=== PATIENT | male | born 1955 | race African-American/Black ===

== ENCOUNTER 2016-11-28 13:30 | Inpatient (IN) | payer MEDICAID, OTHER ==
[2016-11-28] VITALS (9 sets, daily range): BP systolic 121–178; BP diastolic 59–111; PULSE 73–113; RESP 16–20; TEMP 97.2–97.9; O2SAT 95–98
[~2016-11-28] VITALS: Ht 170.2 cm; Wt 85.4 kg
--- NOTE | 2016-11-28 14:44 | PD ---
HPI Chief Complaint: Respiratory Symptoms Time Seen by Provider: 14:43 Travel History International Travel<30 days: No Contact w/Intl Traveler<30days: No Traveled to known affect area: No History of Present Illness HPI 61-year-old male came to the emergency room with history of shortness of breath. Patient was tachycardic in triage. He was atrial fibrillation with RVR. Patient has history of atrial fibrillation but not on any medications a blood thinners. He says he has been short of breath for past 1 week. Patient has recently moved from [place] and does not have a primary care here. He was short of breath sitting and talking to me. There has been history of orthopnea. No history of pedal edema or chest pain. No history of fever or chills. Heart rate was in 1 teens to 120s. [facility] Past Medical History Narrative Medical List of his past medical, surgical, social and family history as reviewed from the nursing note. Respiratory: Yes (asthma) Social History Tobacco Use: No Allergies-Medications (Allergen,Severity, Reaction): Coded Allergies: No Known Allergies (Unverified , 11/28/16) Comments No known allergies Reported Meds & Prescriptions Reported Meds & Active Scripts Active Reported Oyster Shell Calcium + D (Calcium Carbonate-Cholecalciferol) 500-400 Mg-Unit Tab 1 Tab PO DAILY Motrin Ib (Ibuprofen) 200 Mg Tablet 800 Mg PO PRN Methotrexate 2.5 Mg Tab 20 Mg PO Q7D Narrative Medication List of her medications a been reviewed from the nursing note. Review of Systems Except as stated in HPI: all other systems reviewed are Neg Physical Exam Narrative GENERAL: Awake, alert, moderate distress SKIN: Focused skin assessment warm/dry. HEAD: Atraumatic. Normocephalic. EYES: Pupils equal and round. No scleral icterus. No injection or drainage. ENT: No nasal bleeding or discharge. Mucous membranes pink and moist. NECK: Trachea midline. No JVD. CARDIOVASCULAR: Irregularly irregular rhythm, RVR. No murmur appreciated. RESPIRATORY: Tachypnea. Clear to auscultation. Breath sounds equal bilaterally. GASTROINTESTINAL: Abdomen soft, non-tender, nondistended. Hepatic and splenic margins not palpable. MUSCULOSKELETAL: No obvious deformities. No clubbing. No cyanosis. No edema. NEUROLOGICAL: Awake and alert. No obvious cranial nerve deficits. Motor grossly within normal limits. Normal speech. PSYCHIATRIC: Appropriate mood and affect; insight and judgment normal. Data Data Last Documented VS Vital Signs Date Time Temp Pulse Resp B/P Pulse Ox O2 Delivery O2 Flow Rate FiO2 11/28/16 16:03 108 20 157/111 97 Room Air 11/28/16 14:47 97.9 Orders Complete Blood Count With Diff (11/28/16 14:57) Basic Metabolic Panel (Bmp) (11/28/16 14:57) B-Type Natriuretic Peptide (11/28/16 14:57) Prothrombin Time / Inr (Pt) (11/28/16 14:57) Magnesium (Mg) (11/28/16 14:57) Troponin I (11/28/16 14:57) Iv Access Insert/Monitor (11/28/16 14:57) Ecg Monitoring (11/28/16 14:57) Oximetry (11/28/16 14:57) Oxygen Administration (11/28/16 14:57) Chest, Single Ap (11/28/16 14:57) Sodium Chloride 0.9% Flush (Ns Flush) (11/28/16 15:00) Vital Signs (Adult) Q15MX4,Q4H (11/28/16 14:57) Herb Doctor / Telemetry OCTAVIO.Q8H (11/28/16 14:57) Cardiac Rhythm OCTAVIO.Q8H (11/28/16 14:57) Notify Dr: Other (11/28/16 14:57) Diltiazem Inj (Cardizem Inj) (11/28/16 15:00) Diltiazem Inj (Cardizem Inj) (11/28/16 15:00) Heparin Infusion OCTAVIO.Q1H (11/28/16 15:25) Heparin Inj (Heparin Inj) (11/28/16 15:30) Heparin Inj (Heparin Inj) (11/28/16 21:30) Heparin Inj (Heparin Inj) (11/28/16 21:30) Heparin-D5w Inj (Heparin-D5w Inj) (11/28/16 15:30) Act Partial Throm Time (Ptt) (11/28/16 15:25) Cbc No Diff, Includes Plts (12/01/16 06:00) Act Partial Throm Time (Ptt) (11/28/16 22:25) Occult Blood (Hemoccult) Stool (11/28/16 15:25) Electrocardiogram (11/28/16 14:48) Admit Order (Ed Use Only) (11/28/16 16:17) Labs Laboratory Tests Test 11/28/16 15:08 White Blood Count 7.9 TH/MM3 Red Blood Count 4.81 MIL/MM3 Hemoglobin 14.0 GM/DL Hematocrit 44.0 % Mean Corpuscular Volume 91.6 FL Mean Corpuscular Hemoglobin 29.1 PG Mean Corpuscular Hemoglobin 31.8 % Concent Red Cell Distribution Width 14.3 % Platelet Count 235 TH/MM3 Mean Platelet Volume 10.3 FL Neutrophils (%) (Auto) 69.6 % Lymphocytes (%) (Auto) 24.0 % Monocytes (%) (Auto) 3.4 % Eosinophils (%) (Auto) 2.3 % Basophils (%) (Auto) 0.7 % Neutrophils # (Auto) 5.5 TH/MM3 Lymphocytes # (Auto) 1.9 TH/MM3 Monocytes # (Auto) 0.3 TH/MM3 Eosinophils # (Auto) 0.2 TH/MM3 Basophils # (Auto) 0.1 TH/MM3 CBC Comment DIFF FINAL Differential Comment Prothrombin Time 10.4 SEC Prothromb Time International 0.9 RATIO Ratio Activated Partial 25.2 SEC Thromboplast Time Sodium Level 140 MEQ/L Potassium Level 4.8 MEQ/L Chloride Level 109 MEQ/L Carbon Dioxide Level 24.4 MEQ/L Anion Gap 7 MEQ/L Blood Urea Nitrogen 14 MG/DL Creatinine 1.09 MG/DL Estimat Glomerular Filtration 84 ML/MIN Rate Random Glucose 75 MG/DL Calcium Level 8.7 MG/DL Magnesium Level 1.9 MG/DL Troponin I 0.08 NG/ML B-Type Natriuretic Peptide 402 PG/ML MDM Medical Decision Making Medical Screen Exam Complete: Yes Emergency Medical Condition: Yes Medical Record Reviewed: Yes Interpretation(s) Twelve-lead EKG was reviewed by me. Atrial fibrillation, RVR, left axis deviation. Heart rate of 120 bpm. Differential Diagnosis Atrial fibrillation, RVR, CHF, ACS Narrative Course 3:34 PM patient was given IV Cardizem bolus 20 mg along with a drip. Patient is not on any blood thinners. I'm starting him on heparin bolus and drip. Awaiting for the blood tests and chest x-ray to be resulted. Patient will eventually require admission. Critical Care Narrative Aggregate critical care time was 45 minutes. Time to perform other separately billable procedures was not included in the critical care time. My time did not include minutes spent treating any other patients simultaneously or on activities that did not directly contribute to the patient's treatment. The services I provided to this patient were to treat and/or prevent clinically significant deterioration that could result in: A. fib with RVR, dyspnea, elevated troponin, Cardizem bolus and drip, heparin bolus and drip I provided critical care services requiring my management, as noted below: Chart data review, documentation time, medication orders and management, vital sign assessments/reviewing monitor data, ordering and reviewing lab tests, ordering and interpreting/reviewing x-rays and diagnostic studies, care of the patient and discussion of the patient with the admitting physicians. Procedures EKG Prior to Arrival: No Diagnosis Primary Impression: Atrial fibrillation with RVR Additional Impressions: Shortness of breath at rest Elevated troponin I level CHF (congestive heart failure) Qualified Code: I50.9 - Congestive heart failure, unspecified congestive heart failure chronicity, unspecified congestive heart failure type Admitting Information Admitting Physician Requests: Admit Scripts Oxycodone 5 Mg Tab5 Mg PO Q6HR PRN (pain) #14 TAB Prov:Lencho Prescott DO 12/01/16 Metoprolol Tartrate (Lopressor)50 Mg Tab75 Mg PO Q12HR #90 TAB Prov:Lencho Prescott DO 12/01/16 Apixaban (Eliquis)5 Mg Tab5 Mg PO BID #60 TAB Prov:Lencho Prescott DO 12/01/16 Folic Acid 20 Mg Cap10 Mg PO DAILY #0 CAP Prov:Lencho Prescott DO 12/01/16 Sofia Kramer MD Nov 28, 2016 14:44
[2016-11-28] MEDS ORDERED: DILTIAZEM HCL 25 MG/5 ML VIAL IVP ONE (15:00)
[2016-11-28] MEDS ORDERED: SODIUM CHLORIDE 0.9% FLUSH 10 ML FLUSH IVF PRN (15:00)
[2016-11-28] MEDS ORDERED: METH2.5T PO (15:08)
[2016-11-28] MEDS ORDERED: OS-CTAB3 PO (15:08)
[2016-11-28] MEDS ORDERED: AMLO5TAB2 PO (15:08)
[2016-11-28] MEDS ORDERED: FOLI20CA PO (15:08)
[2016-11-28] MEDS ORDERED: OYST500T53 PO (15:08)
[2016-11-28] MEDS ORDERED: IBUP-1129 PO (15:08)
[2016-11-28] MEDS ORDERED: LOSA25TA PO (15:08)
[2016-11-28] MEDS: DILTIAZEM INJ 125 MG in SODIUM CHLORIDE 0.9% INJ 100 ML IV SCH (15:30)
[2016-11-28] MEDS ORDERED: HEPARIN SODIUM - IV 10,000 UNITS/10 ML VIAL IV ONE (15:30)
--- NOTE | 2016-11-28 15:34 | RADRPT ---
EXAM DATE/TIME: 11/28/2016 15:01 [facility] COMPARISON: No previous studies available for comparison. INDICATIONS : Shortness of breath. MEDICAL HISTORY : Hypertension. Asthma. SURGICAL HISTORY : None. ENCOUNTER: Initial ACUITY: 1 day PAIN SCORE: 0/10 LOCATION: Bilateral chest FINDINGS: A single view of the chest demonstrates the lungs to be symmetrically aerated without evidence of mas s, infiltrate or effusion. The cardiomediastinal contours are unremarkable. Osseous structures are intact. CONCLUSION: No acute disease. Ge De Leon MD on November 28, 2016 at 15:32 Board Certified Radiologist. This report was verified electronically.
[2016-11-28 15:44] LABS: AUTOMATED NEUTROPHIL # 5.5 TH/MM3 (1.8-7.7); BASOPHIL # 0.1 TH/MM3 (0-0.2); BASOPHIL % 0.7 % (0.0-2.0); EOSINOPHIL # 0.2 TH/MM3 (0-0.4); EOSINOPHIL % 2.3 % (0.0-4.0); HEMO FLAGS DIFF FINAL; LYMPHOCYTE # 1.9 TH/MM3 (1.0-4.8); MEAN CELL VOLUME 91.6 FL (80.0-100.0); MEAN CORPUSCULAR HEMOGLOBIN 29.1 PG (27.0-34.0); MEAN CORPUSCULAR HGB CONC 31.8 % (32.0-36.0); MONO % 3.4 % (0.0-8.0); NEUT % 69.6 % (16.0-70.0); PLATELET COUNT 235 TH/MM3 (150-450); RED BLOOD COUNT 4.81 MIL/MM3 (4.50-5.90); RED CELL DISTRIBUTION WIDTH 14.3 % (11.6-17.2); WHITE BLOOD COUNT 7.9 TH/MM3 (4.0-11.0)
[2016-11-28] MEDS: HEPARIN-D5W INJ 250 ML IV SCH (15:52)
[2016-11-28 15:54] LABS: INTERNATIONAL NORMALIZED RATIO 0.9 RATIO; PROTHROMBIN TIME - PATIENT 10.4 SEC (9.8-11.6)
[2016-11-28 16:20] LABS: BICARBONATE 24.4 MEQ/L (21.0-32.0); MAGNESIUM 1.9 MG/DL (1.5-2.5)
[2016-11-28 16:25] LABS: POTASSIUM 4.8 MEQ/L (3.5-5.1)
[2016-11-28] MEDS ORDERED: PILL SPLITTER OTHER PRN (16:45)
--- NOTE | 2016-11-28 17:03 | HHI.HP ---
HPI Service [facility] Primary Care Physician No Primary Care Physician Admission Diagnosis A. fib with RVR, shortness of breath Diagnoses: Chief Complaint: Shortness of breath Travel History International Travel<30 Days: No Contact w/Intl Traveler <30 Da: No Traveled to Known Affected Are: No History of Present Illness 61-year-old male with past medical history of HTN, RA, spinal stenosis, DJD, OA who presented for shortness of breath. The patient states that he's been having shortness breath and dyspnea with exertion for the past week. He states that is been getting worse over the past 2 days. He complains of palpitations and feeling like his heart is racing. He denies any chest pain. He denies ever experiencing any symptoms like this before. He states someone mentioned about 30 years ago that he might have an irregular heartbeat. He denies ever being told he has atrial fibrillation. 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 He denies any recent illness, but has had a cough productive with white sputum for the last 3 days. He denies any fever, chills, nausea, vomiting, diarrhea. Review of Systems Except as stated in HPI: all other systems reviewed are Neg Ambulates using a cane Past Family Social History Past Medical History Hypertension Rheumatoid arthritis/spinal stenosis/degenerative joint disease/osteoarthritis Past Surgical History Right knee surgery 2 Left knee surgery 2 Spinal surgery 2 Reported Medications Oyster Shell Calcium + D (Calcium Carbonate-Cholecalciferol) 500-400 Mg-Unit Tab 1 Tab PO DAILY Os-Wenceslao Calcium + D3 (Calcium Carbonate-Cholecalciferol) 500-200 Mg-Unit Tab 1 Tab PO DAILY Folic Acid 20 Mg Cap 20 Mg PO DAILY Motrin Ib (Ibuprofen) 200 Mg Tablet 800 Mg PO PRN Amlodipine (Amlodipine Besylate) 5 Mg Tab 5 Mg PO DAILY Losartan (Losartan Potassium) 25 Mg Tab 12.5 Mg PO DAILY Methotrexate 2.5 Mg Tab 20 Mg PO Q7D Allergies: Coded Allergies: No Known Allergies (Unverified , 11/28/16) Active Ordered Medications Current Medications Medications (Trade) Dose Ordered Sig/[place] Route Start Time Stop Time Status Last Admin Sodium Chloride 2 ml 2 ml UNSCH PRN IVF 11/28/16 15:00 (Cardizem Inj/NS Inj) 125 ml @ 0 mls/hr TITRATE IV 11/28/16 15:00 11/28/16 15:30 (Heparin Inj) 5,000 units UNSCH PRN IV 11/28/16 21:30 Heparin Sodium (Porcine) 2500 units 2,500 units UNSCH PRN IV 11/28/16 21:30 (Heparin-D5W Inj) 250 ml @ 0 mls/hr TITRATE IV 11/28/16 15:30 11/28/16 15:52 (Cozaar) 12.5 mg DAILY PO 11/29/16 09:00 Non-Formulary Medication 20 mg DAILY PO 11/29/16 09:00 UNV (Pill Splitter) 1 ea UNSCH PRN OTHER 11/28/16 16:45 Family History Mother of a heart attack Social History Smokes about 3 cigarettes daily Has a couple of beers twice a week Denies any substance use Physical Exam Vital Signs Vital Signs Date Time Temp Pulse Resp B/P Pulse Ox O2 Delivery O2 Flow Rate FiO2 11/28/16 16:03 108 20 157/111 97 Room Air 11/28/16 15:18 98 Room Air 11/28/16 14:47 16 96 11/28/16 14:47 97.9 113 16 178/109 96 Room Air 11/28/16 13:31 97.4 90 18 152/106 97 Physical Exam GENERAL: Well-developed well-nourished. In no acute distress. SKIN: Warm and dry. No lesions noted. HEENT: Normocephalic. Pupils equal and round. Mucous membranes pink and moist. CARDIOVASCULAR: Tachycardic irregular rate and rhythm. No murmur appreciated. RESPIRATORY: No accessory muscle use. Clear to auscultation. Breath sounds equal bilaterally. GASTROINTESTINAL: Abdomen soft, non-tender, nondistended. Bowel sounds x4. MUSCULOSKELETAL: No obvious deformities. No clubbing or cyanosis. Trace pitting lower extremity edema. NEUROLOGICAL: Awake and alert. No focal neurological deficits. Moves upper and lower extremities spontaneously. Normal speech. Strength 5/5. PSYCHIATRIC: Appropriate mood and affect; insight and judgment normal. Laboratory Laboratory Tests Test 11/28/16 15:08 White Blood Count 7.9 Red Blood Count 4.81 Hemoglobin 14.0 Hematocrit 44.0 Mean Corpuscular Volume 91.6 Mean Corpuscular Hemoglobin 29.1 Mean Corpuscular Hemoglobin 31.8 Concent Red Cell Distribution Width 14.3 Platelet Count 235 Mean Platelet Volume 10.3 Neutrophils (%) (Auto) 69.6 Lymphocytes (%) (Auto) 24.0 Monocytes (%) (Auto) 3.4 Eosinophils (%) (Auto) 2.3 Basophils (%) (Auto) 0.7 Neutrophils # (Auto) 5.5 Lymphocytes # (Auto) 1.9 Monocytes # (Auto) 0.3 Eosinophils # (Auto) 0.2 Basophils # (Auto) 0.1 CBC Comment DIFF FINAL Differential Comment Prothrombin Time 10.4 Prothromb Time International 0.9 Ratio Sodium Level 140 Potassium Level 4.8 Chloride Level 109 Carbon Dioxide Level 24.4 Anion Gap 7 Blood Urea Nitrogen 14 Creatinine 1.09 Estimat Glomerular Filtration 84 Rate Random Glucose 75 Calcium Level 8.7 Magnesium Level 1.9 Troponin I 0.08 B-Type Natriuretic Peptide 402 Result Diagram: 11/28/16 1508 11/28/16 1508 Imaging Last Impressions Chest X-Ray 11/28/16 1457 Signed Impressions: Service Date/Time: Monday, November 28, 2016 15:01 - CONCLUSION: No acute disease. Ge De Leon MD Assessment and Plan Assessment and Plan 61-year-old male with past medical history of HTN, RA, spinal stenosis, DJD, OA who presented for shortness of breath New-onset atrial fibrillation with rapid ventricular response: Chadsvasc 1 Reviewed: EKG with A. fib with RVR, rate 120, no definite ischemic changes. Troponin 0.08. BNP 402. Chest x-ray clear. Potassium magnesium within normal limits. -Cardizem and heparin drips started in the ED, continue -Trend troponins and check TSH -Start metoprolol and aspirin -Check echocardiogram -Consult cardiology Hypertension: Chronic, currently accelerated. Hold home amlodipine on Cardizem. Continue losartan. Started metoprolol. Discussed Condition With Patient with SO at bedside, Bhaskar Tran Nov 28, 2016 17:03
--- NOTE | 2016-11-28 18:07 | EKG ---
Date Performed: 11/28/2016 Time Performed: 14:48:48 PTAGE: 61 years EKG: Multifocal atrial tachycardia Nonspecific T wave changes ABNORMAL ECG NO PREVIOUS TRACING DOCTOR: Dimitrios Burns Interpretating Date/Time 11/28/2016 18:07:16
[2016-11-28 18:13] LABS: APTT (PATIENT) 25.2 SEC (24.3-30.1)
--- NOTE | 2016-11-28 18:33 | MB ---
cc: HALEY BUSTAMANTE MD DATE OF CONSULTATION 11/28/2016 REASON FOR CONSULTATION Atrial fibrillation with rapid ventricular rate. HISTORY OF PRESENT ILLNESS Mr. Castillo is a 61-year-old man who does have a history of irregular heartbeat. He presented to the emergency room with shortness of breath over the last 3 days and fatigue over the last week. The patient was noted to be in atrial fibrillation with rapid ventricular rate in the emergency room. Cardiology was subsequently consulted. PAST MEDICAL HISTORY Significant for: 1. Dysrhythmia. 2. Hypertension. 3. Asthma. ALLERGIES NO KNOWN DRUG ALLERGIES. MEDICATIONS Outpatient medications include: 1. Motrin. 2. Amlodipine 5 milligrams daily. 3. Losartan 12.5 milligrams daily. 4. Methotrexate 2.5 mg a day. REVIEW OF SYSTEMS Except as mentioned in the HPI all 12 systems are negative. FAMILY HISTORY Positive for mother who of an myocardial infarction. SOCIAL HISTORY The patient does smoke three cigarettes a day and has occasional alcohol use. PHYSICAL EXAMINATION VITAL SIGNS: 102, 20, 134/75. GENERAL: He is a well appearing man who is in no apparent distress. NECK: Free from JVD. LUNGS: Decreased but clear to auscultation. CARDIOVASCULAR: On examination he has an irregularly irregular rhythm. No rubs or gallops are appreciated. ABDOMEN: Soft. EXTREMITIES: Are free from edema. IMAGING Chest x-ray is negative for any acute process. LABORATORY FINDINGS Significant for white count of 7.9. Creatinine of 1.09. Troponin was 0.08. And BNP is 402. EKG does show atrial fibrillation with rapid ventricular rate. IMPRESSION 1. Atrial fibrillation - the patient does have a history of an irregular heartbeat. It is not clear if he does have a history of atrial fibrillation. In case I do agree with the Cardize for rate control and BP control, particularly as he does have a history of asthma as well. 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 2. Hypertension - I do agree with discontinuing the amlodipine and losartan. 3. Indeterminate troponin - this is likely secondary to the atrial fibrillation with rapid ventricular rate. Melissa Wheat/KK /6:13 PM /6:25 PM
[2016-11-28] MEDS ORDERED: METOPROLOL TARTRATE 25 MG TAB PO SCH (21:00)
[2016-11-28] MEDS ORDERED: DILTIAZEM-CD 120 MG CAP ER PO SCH (21:00)
[2016-11-28] MEDS ORDERED: HEPARIN SODIUM - IV 10,000 UNITS/10 ML VIAL IV PRN ×2 (21:30)
[2016-11-29] VITALS (11 sets, daily range): BP systolic 104–153; BP diastolic 66–97; PULSE 48–108; RESP 16–18; TEMP 97.4–98.4; O2SAT 93–98
[2016-11-29 00:09] LABS: APTT (PATIENT) 65.8 SEC (24.3-30.1)
[2016-11-29] MEDS ORDERED: FUROSEMIDE 20 MG/2 ML VIAL IV PUSH ONE (04:15)
[2016-11-29] MEDS: HEPARIN-D5W INJ 250 ML IV SCH ×2 (05:16→21:46)
--- NOTE | 2016-11-29 05:29 | RADRPT ---
EXAM DATE/TIME: 11/29/2016 04:25 [facility] COMPARISON: CHEST SINGLE AP, November 28, 2016, 15:01. INDICATIONS : Shortness of breath. MEDICAL HISTORY : Hypertension. Asthma SURGICAL HISTORY : None. ENCOUNTER: Subsequent ACUITY: 2 days PAIN SCORE: 0/10 LOCATION: Bilateral chest FINDINGS: There is slight cardiomegaly and perivascular pulmonary edema. Focal consolidation is not seen. CONCLUSION: Slight CHF. Catrachita De La Cruz MD on November 29, 2016 at 5:27 Board Certified Radiologist. This report was verified electronically.
--- NOTE | 2016-11-29 07:28 | PD.CARD.PN ---
Subjective Subjective Remarks Pt with SHOB overnight requiring lasix Objective Medications Current Medications Medications (Trade) Dose Ordered Sig/[place] Route Start Time Stop Time Status Last Admin Sodium Chloride 2 ml 2 ml UNSCH PRN IVF 11/28/16 15:00 (Cardizem Inj/NS Inj) 125 ml @ 0 mls/hr TITRATE IV 11/28/16 15:00 11/28/16 15:30 (Heparin Inj) 5,000 units UNSCH PRN IV 11/28/16 21:30 Heparin Sodium (Porcine) 2500 units 2,500 units UNSCH PRN IV 11/28/16 21:30 (Heparin-D5W Inj) 250 ml @ 0 mls/hr TITRATE IV 11/28/16 15:30 11/29/16 05:16 Non-Formulary Medication 20 mg DAILY PO 11/29/16 09:00 UNV (Pill Splitter) 1 ea UNSCH PRN OTHER 11/28/16 16:45 (Aspirin Chew) 81 mg DAILY PO 11/29/16 09:00 (Cardizem Cd) 120 mg Q12HR PO 11/28/16 21:00 11/28/16 21:21 (Pneumovax-23 Inj) 25 mcg ONCE ONCE IM 11/29/16 10:00 11/29/16 10:01 Vital Signs / I&O Vital Signs Date Time Temp Pulse Resp B/P Pulse Ox O2 Delivery O2 Flow Rate FiO2 11/29/16 05:30 97 Room Air 11/29/16 03:35 98 Nasal Cannula 2.00 11/29/16 03:25 96 Room Air 11/29/16 00:00 97.4 93 16 130/79 97 11/29/16 00:00 Room Air 11/28/16 21:45 97 Room Air 11/28/16 20:24 92 11/28/16 20:00 Room Air 11/28/16 20:00 97.5 87 16 121/59 96 11/28/16 18:32 Room Air 11/28/16 18:24 97.2 73 18 156/89 95 11/28/16 17:36 102 20 144/75 98 Room Air 11/28/16 17:21 95 21 11/28/16 17:01 104 20 150/88 98 Room Air 11/28/16 16:03 108 20 157/111 97 Room Air 11/28/16 15:18 98 Room Air 11/28/16 14:47 16 96 11/28/16 14:47 97.9 113 16 178/109 96 Room Air 11/28/16 13:31 97.4 90 18 152/106 97 I/O 11/28/16 11/28/16 11/28/16 11/29/16 11/29/16 11/29/16 07:00 15:00 23:00 07:00 15:00 23:00 Intake Total 900 ml Output Total 400 ml Balance 500 ml Intake Oral 900 ml Output Urine Total 400 ml # Bowel Movements 1 Physical Exam GENERAL: Well developed, well nourished. No acute distress. HEENT: Jugular venous pressure is normal. CHEST: Lungs clear to auscultation bilaterally. Unlabored respiratory effort. CARDIAC: irregular rate and rhythm without S3, S4, or murmur. ABDOMEN: Soft, nontender, no hepatosplenomegaly. Bowel sounds present. EXTREMITIES: No clubbing, cyanosis, or edema. Laboratory Laboratory Tests Test 11/28/16 11/28/16 15:08 23:23 White Blood Count 7.9 TH/MM3 Red Blood Count 4.81 MIL/MM3 Hemoglobin 14.0 GM/DL Hematocrit 44.0 % Mean Corpuscular Volume 91.6 FL Mean Corpuscular Hemoglobin 29.1 PG Mean Corpuscular Hemoglobin 31.8 % Concent Red Cell Distribution Width 14.3 % Platelet Count 235 TH/MM3 Mean Platelet Volume 10.3 FL Neutrophils (%) (Auto) 69.6 % Lymphocytes (%) (Auto) 24.0 % Monocytes (%) (Auto) 3.4 % Eosinophils (%) (Auto) 2.3 % Basophils (%) (Auto) 0.7 % Neutrophils # (Auto) 5.5 TH/MM3 Lymphocytes # (Auto) 1.9 TH/MM3 Monocytes # (Auto) 0.3 TH/MM3 Eosinophils # (Auto) 0.2 TH/MM3 Basophils # (Auto) 0.1 TH/MM3 CBC Comment DIFF FINAL Differential Comment Prothrombin Time 10.4 SEC Prothromb Time International 0.9 RATIO Ratio Activated Partial 25.2 SEC 65.8 SEC Thromboplast Time Sodium Level 140 MEQ/L Potassium Level 4.8 MEQ/L Chloride Level 109 MEQ/L Carbon Dioxide Level 24.4 MEQ/L Anion Gap 7 MEQ/L Blood Urea Nitrogen 14 MG/DL Creatinine 1.09 MG/DL Estimat Glomerular Filtration 84 ML/MIN Rate Random Glucose 75 MG/DL Calcium Level 8.7 MG/DL Magnesium Level 1.9 MG/DL Troponin I 0.08 NG/ML 0.07 NG/ML B-Type Natriuretic Peptide 402 PG/ML Thyroid Stimulating Hormone 1.630 uIU/ML 3rd Gen Imaging Last 72 hours Impressions Chest X-Ray 11/29/16 0000 Signed Impressions: Service Date/Time: Tuesday, November 29, 2016 04:25 - CONCLUSION: Slight CHF. K. Ayden De La Cruz MD Chest X-Ray 11/28/16 1457 Signed Impressions: Service Date/Time: Monday, November 28, 2016 15:01 - CONCLUSION: No acute disease. Ge De Leon MD Assessment and Plan Assessment and Plan 1. Atrial fibrillation - the patient does have a history of an irregular heartbeat. It is not clear if he does have a history of atrial fibrillation. In case I do agree with the Cardizem for rate control and BP control, particularly as he does have a history of asthma as well. 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 11/29- still with some RVR, now also with CHF -change back to POBB -CHADS VASC =2 so should have OP anticoagulation, consult case management to see if eliquis or pradaxa are on his formulary 2. Hypertension - 3. Indeterminate troponin - this is likely secondary to the atrial fibrillation 4. CHF- ECHO pending, -add lasix, fluid and sodium restrictions with rapid ventricular rate. Caitlin Shaver MD Nov 29, 2016 07:28
[2016-11-29] MEDS ORDERED: LOSARTAN 25 MG TAB PO SCH (09:00)
[2016-11-29] MEDS ORDERED: FOLIC ACID 20 MG PO SCH (09:00)
--- NOTE | 2016-11-29 09:03 | HHI.PR ---
Subjective Remarks The patient was ambulating without difficulty. He said that he had some edema in his lower extremities yesterday. He said that he had some shortness of breath overnight that is improved. He has been having bowel movements. No acute complaints at this time. He was about to have an echo performed. Objective Vitals Vital Signs Date Time Temp Pulse Resp B/P Pulse Ox O2 Delivery O2 Flow Rate FiO2 11/29/16 08:00 Room Air 11/29/16 05:30 97 Room Air 11/29/16 04:00 97.6 78 18 122/73 94 11/29/16 03:35 98 Nasal Cannula 2.00 11/29/16 03:25 96 Room Air 11/29/16 00:00 97.4 93 16 130/79 97 11/29/16 00:00 Room Air 11/28/16 21:45 97 Room Air 11/28/16 20:24 92 11/28/16 20:00 Room Air 11/28/16 20:00 97.5 87 16 121/59 96 11/28/16 18:32 Room Air 11/28/16 18:24 97.2 73 18 156/89 95 11/28/16 17:36 102 20 144/75 98 Room Air 11/28/16 17:21 95 21 11/28/16 17:01 104 20 150/88 98 Room Air 11/28/16 16:03 108 20 157/111 97 Room Air 11/28/16 15:18 98 Room Air 11/28/16 14:47 16 96 11/28/16 14:47 97.9 113 16 178/109 96 Room Air 11/28/16 13:31 97.4 90 18 152/106 97 I/O 11/28/16 11/28/16 11/28/16 11/29/16 11/29/16 11/29/16 07:00 15:00 23:00 07:00 15:00 23:00 Intake Total 900 ml 869 ml Output Total 400 ml 1000 ml Balance 500 ml -131 ml Intake Oral 900 ml 480 ml IV Total 289 ml Albumin 100 ml Output Urine Total 400 ml 1000 ml # Bowel Movements 1 0 Result Diagram: 11/28/16 1508 11/28/16 1508 Imaging Last Impressions Chest X-Ray 11/29/16 0000 Signed Impressions: Service Date/Time: Tuesday, November 29, 2016 04:25 - CONCLUSION: Slight CHF. Catrachita De La Cruz MD Objective Remarks GENERAL: Well-developed well-nourished. In no acute distress. SKIN: Warm and dry. No lesions noted. HEENT: Normocephalic. Pupils equal and round. Mucous membranes pink and moist. CARDIOVASCULAR: Irregularly irregular. No murmur appreciated. RESPIRATORY: No accessory muscle use. Clear to auscultation. Breath sounds equal bilaterally. GASTROINTESTINAL: Abdomen soft, non-tender, nondistended. Bowel sounds x4. MUSCULOSKELETAL: No obvious deformities. No clubbing or cyanosis. Trace pitting lower extremity edema. NEUROLOGICAL: Awake and alert. No focal neurological deficits. Moves upper and lower extremities spontaneously. Normal speech. Strength 5/5. PSYCHIATRIC: Appropriate mood and affect; insight and judgment normal. Medications and IVs Current Medications Medications (Trade) Dose Ordered Sig/[place] Route Start Time Stop Time Status Last Admin Sodium Chloride 2 ml 2 ml UNSCH PRN IVF 11/28/16 15:00 (Cardizem Inj/NS Inj) 125 ml @ 0 mls/hr TITRATE IV 11/28/16 15:00 11/28/16 15:30 (Heparin Inj) 5,000 units UNSCH PRN IV 11/28/16 21:30 Heparin Sodium (Porcine) 2500 units 2,500 units UNSCH PRN IV 11/28/16 21:30 (Heparin-D5W Inj) 250 ml @ 0 mls/hr TITRATE IV 11/28/16 15:30 11/29/16 05:16 Non-Formulary Medication 20 mg DAILY PO 11/29/16 09:00 UNV (Pill Splitter) 1 ea UNSCH PRN OTHER 11/28/16 16:45 (Aspirin Chew) 81 mg DAILY PO 11/29/16 09:00 (Pneumovax-23 Inj) 25 mcg ONCE ONCE IM 11/29/16 10:00 11/29/16 10:01 (Lopressor) 50 mg Q8HR PO 11/29/16 14:00 (Lasix) 20 mg BID@09,18 PO 11/29/16 09:00 (KCl) 10 meq Q12HR PO 11/29/16 09:00 A/P Assessment and Plan 61-year-old male with past medical history of HTN, RA, spinal stenosis, DJD, OA who presented for shortness of breath New-onset atrial fibrillation with rapid ventricular response Chadsvasc 2. EKG with A. fib with RVR, rate 120, no definite ischemic changes. Troponin peaked at 0.08. TSH WNL. Cardiology consult appreciated. - continue Cardizem and heparin drips. PO Lopressor increased by cardiology. - continue ASA. Will likely be started on full anticoagulation per cardiology. - Check echocardiogram. Acute CHF Unsure if systolic or diastolic. Likely s/t A fib. The patient developed shortness of breath and repeat chest x-ray showed evidence of CHF. BNP is elevated over 400. He received Lasix and his symptoms improved. - Echo pending. - Continue cardiac regimen including Lasix. - Check hemoglobin A1c and lipid profile. Hypertension Chronic, currently well controlled. - Hold home amlodipine. - Continue losartan. - Started metoprolol. PPx: Heparin gtt Discharge Planning Awaiting clinical improvement Lencho Prescott DO Nov 29, 2016 09:03
[2016-11-29] MEDS: FUROSEMIDE 20 MG TAB PO SCH ×2 (09:25→18:05)
[2016-11-29] MEDS: ASPIRIN 81 MG CHEW TAB PO SCH (09:25)
[2016-11-29] MEDS: POTASSIUM CHLORIDE 10 MEQ CONTROLLED RELEASE TAB PO SCH ×2 (09:26→20:22)
[2016-11-29 09:45] LABS: HEMATOCRIT 42.5 % (39.0-51.0); MEAN CELL VOLUME 89.7 FL (80.0-100.0); MEAN CORPUSCULAR HEMOGLOBIN 28.5 PG (27.0-34.0); MEAN CORPUSCULAR HGB CONC 31.8 % (32.0-36.0); PLATELET COUNT 224 TH/MM3 (150-450); RED BLOOD COUNT 4.74 MIL/MM3 (4.50-5.90); RED CELL DISTRIBUTION WIDTH 14.5 % (11.6-17.2); REVIEW FLAG FINAL
[2016-11-29] MEDS ORDERED: FOLIC ACID 1 MG TAB PO SCH (09:45)
[2016-11-29 09:56] LABS: APTT (PATIENT) 70.3 SEC (24.3-30.1)
[2016-11-29] MEDS ORDERED: PNEUMOCOCCAL POLYVALENT INJ 25 MCG/0.5 ML SYR IM ONE (10:00)
[2016-11-29 10:22] LABS: BICARBONATE 22.5 MEQ/L (21.0-32.0); POTASSIUM 3.2 MEQ/L (3.5-5.1)
[2016-11-29 13:07] LABS: HDL CHOLESTEROL 51.7 MG/DL (40.0-60.0); LDL CHOLESTEROL 61 MG/DL (0-99)
[2016-11-29] MEDS: METOPROLOL TARTRATE 50 MG TAB PO SCH ×2 (13:09→20:22)
[2016-11-29] MEDS: FOLIC ACID 1 MG TAB PO SCH (13:10)
--- NOTE | 2016-11-29 13:23 | ECHRPT ---
Indication: Hypertensive Heart Disease CONCLUSIONS Normal left ventricular size. Wall thickness is normal. The left ventricular systolic function is borderline with an estimated ejection fraction of 50%. The left atrial size is upper limits of normal. Moderate mitral valve regurgitation. Mild mitral annular calcification. Aortic valve sclerosis is present. Mild aortic valve regurgitation. There is trace tricuspid valve regurgitation. Mild to moderate pulmonary hypertension. BP: 157 / 111 HR: 108 Rhythm: Atrial fibrillation MEASUREMENTS (Male / Female) Normal Values Technical Quality:Good 2D ECHO LV Diastolic Diameter PLAX 4.4 cm 4.2 - 5.9 / 3.9 - 5.3 cm LV Systolic Diameter PLAX 3.4 cm IVS Diastolic Thickness 0.9 cm 0.6 - 1.0 / 0.6 - 0.9 cm LVPW Diastolic Thickness 0.8 cm 0.6 - 1.0 / 0.6 - 0.9 cm LV Relative Wall Thickness 0.4 RV Internal Dim ED PLAX 2.3 cm LA Systolic Diameter LX 3.6 cm 3.0 - 4.0 / 2.7 - 3.8 cm M-MODE Aortic Root Diameter MM 3.2 cm AV Cusp Separation MM 2.2 cm DOPPLER AV Peak Velocity 170.0 cm/s AV Peak Gradient 11.6 mmHg LVOT Peak Velocity 93.8 cm/s LVOT Peak Gradient 3.5 mmHg MR Peak Velocity 489.5 cm/s MR Peak Gradient 95.8 mmHg Mitral E Point Velocity 69.6 cm/s TR Peak Velocity 343.0 cm/s TR Peak Gradient 47.1 mmHg FINDINGS LEFT VENTRICLE Normal left ventricular size. Wall thickness is normal. The left ventricular systolic function is borderline with an estimated ejection fraction of 50%. Left ventricular diastolic function parameters are normal. RIGHT VENTRICLE Normal right ventricular size and systolic function. LEFT ATRIUM The left atrial size is upper limits of normal. RIGHT ATRIUM The right atrial size is normal. ATRIAL SEPTUM Normal atrial septal thickness without atrial level shunting by limited color doppler interrogation. AORTA The aortic root and proximal ascending aorta are normal in size on limited imaging. MITRAL VALVE Moderate mitral valve regurgitation. Mild mitral annular calcification. AORTIC VALVE Aortic valve sclerosis is present. Mild aortic valve regurgitation. TRICUSPID VALVE There is trace tricuspid valve regurgitation. Mild to moderate pulmonary hypertension. PULMONARY VALVE The pulmonary valve is not well visualized. VESSELS The inferior vena cava is normal in size. PERICARDIUM No pericardial effusion. Martinez Chatterjee MD, FACC (Electronically Signed) Final Date:29 November 2016 13:22 Amended: 29 November 2016 13:29
[2016-11-29] MEDS: DILTIAZEM INJ 125 MG in SODIUM CHLORIDE 0.9% INJ 100 ML IV SCH (13:52)
[2016-11-29] MEDS ORDERED: POTASSIUM CHLORIDE 25 MEQ EFFERVESCENT TAB PO ONE (14:30)
[2016-11-29 15:55] LABS: HEMOGLOBIN A1a 0.9 %; HEMOGLOBIN A1b 1.7 %; HEMOGLOBIN Ao 84.6 %
[2016-11-30] VITALS (9 sets, daily range): BP systolic 104–142; BP diastolic 70–90; PULSE 43–96; RESP 18–20; TEMP 97.4–97.7; O2SAT 92–96
[2016-11-30] MEDS: METOPROLOL TARTRATE 50 MG TAB PO SCH ×2 (05:54→20:25)
[2016-11-30] MEDS: FUROSEMIDE 20 MG TAB PO SCH (08:07)
[2016-11-30] MEDS: POTASSIUM CHLORIDE 10 MEQ CONTROLLED RELEASE TAB PO SCH (08:07)
[2016-11-30] MEDS: FOLIC ACID 1 MG TAB PO SCH (08:08)
[2016-11-30] MEDS: ASPIRIN 81 MG CHEW TAB PO SCH (08:08)
--- NOTE | 2016-11-30 08:11 | PD.CARD.PN ---
Subjective Subjective Remarks Pt without complaints Objective Medications Current Medications Medications (Trade) Dose Ordered Sig/[place] Route Start Time Stop Time Status Last Admin Sodium Chloride 2 ml 2 ml UNSCH PRN IVF 11/28/16 15:00 (Cardizem Inj/NS Inj) 125 ml @ 0 mls/hr TITRATE IV 11/28/16 15:00 11/29/16 13:52 (Heparin Inj) 5,000 units UNSCH PRN IV 11/28/16 21:30 Heparin Sodium (Porcine) 2500 units 2,500 units UNSCH PRN IV 11/28/16 21:30 (Heparin-D5W Inj) 250 ml @ 0 mls/hr TITRATE IV 11/28/16 15:30 11/29/16 21:46 (Pill Splitter) 1 ea UNSCH PRN OTHER 11/28/16 16:45 (Aspirin Chew) 81 mg DAILY PO 11/29/16 09:00 11/29/16 09:25 (Lopressor) 50 mg Q8HR PO 11/29/16 14:00 11/30/16 05:54 (Lasix) 20 mg BID@09,18 PO 11/29/16 09:00 11/29/16 18:05 (KCl) 10 meq Q12HR PO 11/29/16 09:00 11/29/16 20:22 (Folate) 10 mg DAILY PO 11/29/16 12:00 11/29/16 13:10 (Roxicodone) 5 mg Q4H PRN PO 11/29/16 14:30 11/30/16 05:54 Vital Signs / I&O Vital Signs Date Time Temp Pulse Resp B/P Pulse Ox O2 Delivery O2 Flow Rate FiO2 11/30/16 04:00 97.7 43 18 109/75 92 11/30/16 04:00 Room Air 11/30/16 04:00 97.7 80 20 104/70 93 11/30/16 00:22 94 11/30/16 00:00 97.5 65 18 113/78 95 11/30/16 00:00 Room Air 11/29/16 20:28 91 11/29/16 20:00 97.6 48 18 135/83 95 11/29/16 20:00 Room Air 11/29/16 16:00 94 11/29/16 16:00 Room Air 11/29/16 16:00 97.9 84 18 104/70 98 11/29/16 12:00 97.8 108 18 122/86 95 11/29/16 12:00 103 11/29/16 12:00 Room Air 11/29/16 11:42 107 11/29/16 10:09 94 I/O 11/29/16 11/29/16 11/29/16 11/30/16 11/30/16 11/30/16 07:00 15:00 23:00 07:00 15:00 23:00 Intake Total 869 ml 960 ml 177 ml 163 ml Output Total 1000 ml 1900 ml 2950 ml Balance -131 ml -940 ml 177 ml -2787 ml Intake Oral 480 ml 960 ml IV Total 289 ml 177 ml 163 ml Albumin 100 ml Output Urine Total 1000 ml 1900 ml 2950 ml # Bowel Movements 0 2 Physical Exam GENERAL: Well developed, well nourished. No acute distress. HEENT: Jugular venous pressure is normal. CHEST: Lungs clear to auscultation bilaterally. Unlabored respiratory effort. CARDIAC: irregular rate and rhythm without S3, S4, or murmur. ABDOMEN: Soft, nontender, no hepatosplenomegaly. Bowel sounds present. EXTREMITIES: No clubbing, cyanosis, or edema. Laboratory Laboratory Tests Test 11/29/16 09:24 White Blood Count 8.0 TH/MM3 Red Blood Count 4.74 MIL/MM3 Hemoglobin 13.5 GM/DL Hematocrit 42.5 % Mean Corpuscular Volume 89.7 FL Mean Corpuscular Hemoglobin 28.5 PG Mean Corpuscular Hemoglobin 31.8 % Concent Red Cell Distribution Width 14.5 % Platelet Count 224 TH/MM3 Mean Platelet Volume 10.3 FL Activated Partial 70.3 SEC Thromboplast Time Sodium Level 139 MEQ/L Potassium Level 3.2 MEQ/L Chloride Level 104 MEQ/L Carbon Dioxide Level 22.5 MEQ/L Anion Gap 13 MEQ/L Blood Urea Nitrogen 12 MG/DL Creatinine 0.87 MG/DL Estimat Glomerular Filtration 108 ML/MIN Rate Random Glucose 101 MG/DL Hemoglobin A1c 5.9 % Calcium Level 8.9 MG/DL Triglycerides Level 52 MG/DL Cholesterol Level 123 MG/DL LDL Cholesterol 61 MG/DL HDL Cholesterol 51.7 MG/DL Cholesterol/HDL Ratio 2.37 RATIO Assessment and Plan Assessment and Plan 1. Atrial fibrillation - fair rate control, stop dilt gtt -CHADS VASC =2 so should have OP anticoagulation, consult case management to see if eliquis or pradaxa are on his formulary --awaiting case management 2. Hypertension - 3. Indeterminate troponin - this is likely secondary to the atrial fibrillation 4. CHF-EF 50% - on BB Caitlin Shaver MD Nov 30, 2016 08:11
[2016-11-30] MEDS ORDERED: METOPROLOL TARTRATE 25 MG TAB PO ONE (08:15)
[2016-11-30 08:29] LABS: HEMATOCRIT 43.1 % (39.0-51.0); MEAN CELL VOLUME 89.7 FL (80.0-100.0); MEAN CORPUSCULAR HEMOGLOBIN 28.8 PG (27.0-34.0); MEAN CORPUSCULAR HGB CONC 32.1 % (32.0-36.0); PLATELET COUNT 197 TH/MM3 (150-450); RED CELL DISTRIBUTION WIDTH 14.2 % (11.6-17.2); REVIEW FLAG FINAL
[2016-11-30 08:49] LABS: APTT (PATIENT) 102.1 SEC (24.3-30.1)
[2016-11-30 08:54] LABS: BICARBONATE 24.8 MEQ/L (21.0-32.0); MAGNESIUM 1.9 MG/DL (1.5-2.5); POTASSIUM 3.9 MEQ/L (3.5-5.1)
[2016-11-30 10:33] LABS: APTT (PATIENT) 59.8 SEC (24.3-30.1)
[2016-11-30] MEDS ORDERED: FUROSEMIDE 40 MG/4 ML VIAL IV PUSH ONE (11:30)
[2016-11-30] MEDS ORDERED: POTASSIUM CHLORIDE 20 MEQ CONTROLLED RELEASE TAB PO ONE (11:30)
--- NOTE | 2016-11-30 11:35 | HHI.PR ---
Subjective Remarks The patient said he got [employer] horses after receiving Lasix yesterday. He said that he was having shortness of breath at times, especially with ambulation. He was hoping to be able to go home soon. Discussed with nursing. Objective Vitals Vital Signs Date Time Temp Pulse Resp B/P Pulse Ox O2 Delivery O2 Flow Rate FiO2 11/30/16 08:30 76 11/30/16 08:30 Room Air 11/30/16 08:00 97.6 76 18 141/72 94 11/30/16 04:00 97.7 43 18 109/75 92 11/30/16 04:00 Room Air 11/30/16 04:00 97.7 80 20 104/70 93 11/30/16 00:22 94 11/30/16 00:00 97.5 65 18 113/78 95 11/30/16 00:00 Room Air 11/29/16 20:28 91 11/29/16 20:00 97.6 48 18 135/83 95 11/29/16 20:00 Room Air 11/29/16 16:00 94 11/29/16 16:00 Room Air 11/29/16 16:00 97.9 84 18 104/70 98 11/29/16 12:00 97.8 108 18 122/86 95 11/29/16 12:00 103 11/29/16 12:00 Room Air 11/29/16 11:42 107 I/O 11/29/16 11/29/16 11/29/16 11/30/16 11/30/16 11/30/16 07:00 15:00 23:00 07:00 15:00 23:00 Intake Total 869 ml 960 ml 177 ml 163 ml Output Total 1000 ml 1900 ml 2950 ml Balance -131 ml -940 ml 177 ml -2787 ml Intake Oral 480 ml 960 ml IV Total 289 ml 177 ml 163 ml Albumin 100 ml Output Urine Total 1000 ml 1900 ml 2950 ml # Bowel Movements 0 2 Result Diagram: 11/30/16 0745 11/30/16 0745 Imaging Last Impressions Chest X-Ray 11/29/16 0000 Signed Impressions: Service Date/Time: Tuesday, November 29, 2016 04:25 - CONCLUSION: Slight CHF. K. Ayden De La Cruz MD Objective Remarks GENERAL: Well-developed well-nourished. In no acute distress. SKIN: Warm and dry. No lesions noted. HEENT: Normocephalic. Pupils equal and round. Mucous membranes pink and moist. CARDIOVASCULAR: Irregularly irregular. No murmur appreciated. RESPIRATORY: Crackles at the bases. GASTROINTESTINAL: Abdomen soft, non-tender, nondistended. Bowel sounds x4. MUSCULOSKELETAL: No obvious deformities. No clubbing or cyanosis. Trace pitting lower extremity edema. NEUROLOGICAL: Awake and alert. No focal neurological deficits. Moves upper and lower extremities spontaneously. Normal speech. Strength 5/5. PSYCHIATRIC: Appropriate mood and affect; insight and judgment normal. Medications and IVs Current Medications Medications (Trade) Dose Ordered Sig/[place] Route Start Time Stop Time Status Last Admin Sodium Chloride 2 ml 2 ml UNSCH PRN IVF 11/28/16 15:00 (Cardizem Inj/NS Inj) 125 ml @ 0 mls/hr TITRATE IV 11/28/16 15:00 11/29/16 13:52 (Heparin Inj) 5,000 units UNSCH PRN IV 11/28/16 21:30 (Heparin Inj) 2,500 units UNSCH PRN IV 11/28/16 21:30 (Pill Splitter) 1 ea UNSCH PRN OTHER 11/28/16 16:45 (Aspirin Chew) 81 mg DAILY PO 11/29/16 09:00 11/30/16 08:08 (Folate) 10 mg DAILY PO 11/29/16 12:00 11/30/16 08:08 (Roxicodone) 5 mg Q4H PRN PO 11/29/16 14:30 11/30/16 09:01 (Lopressor) 75 mg Q12HR PO 11/30/16 21:00 (Lasix Inj) 40 mg ONCE ONCE IV PUSH 11/30/16 11:30 11/30/16 11:31 (KCl) 40 meq ONCE ONCE PO 11/30/16 11:30 11/30/16 11:31 (Eliquis) 5 mg BID PO 11/30/16 13:00 UNV A/P Assessment and Plan 61-year-old male with past medical history of HTN, RA, spinal stenosis, DJD, OA who presented for shortness of breath New-onset atrial fibrillation with rapid ventricular response Chadsvasc 2. EKG with A. fib with RVR, rate 120, no definite ischemic changes. Troponin peaked at 0.08. TSH WNL. Cardiology consult appreciated. Status post Cardizem drip. - PO Lopressor increased by cardiology. - continue ASA. - d/c heparin gtt. Start Eliquis. Case management to get the pt a month free. Acute Systolic CHF EF 50%, mod MR on echo. Likely s/t A fib. The patient developed shortness of breath and repeat chest x-ray showed evidence of CHF. BNP is elevated over 400. He received Lasix and his symptoms improved. - Continue cardiac regimen including Lasix. Hypertension Chronic, currently well controlled. - Hold home amlodipine and losartan. - Started metoprolol per cardiology. PPx: Eliquis Discharge Planning Anticipate discharge in the morning if breathing better Lencho Prescott DO Nov 30, 2016 11:35
[2016-11-30] MEDS: APIXABAN 5 MG TABLET PO SCH ×2 (11:40→20:25)
[2016-12-01] VITALS: BP 120/75; PULSE 50; RESP 16; TEMP 98; O2SAT 97
[2016-12-01 04:00] VITALS: BP 110/86; PULSE 84; RESP 16; TEMP 97.4; O2SAT 96
[2016-12-01 07:25] LABS: HEMATOCRIT 43.5 % (39.0-51.0); MEAN CELL VOLUME 89.6 FL (80.0-100.0); MEAN CORPUSCULAR HGB CONC 32.3 % (32.0-36.0); PLATELET COUNT 216 TH/MM3 (150-450); RED BLOOD COUNT 4.85 MIL/MM3 (4.50-5.90); RED CELL DISTRIBUTION WIDTH 14.3 % (11.6-17.2); REVIEW FLAG FINAL; WHITE BLOOD COUNT 6.1 TH/MM3 (4.0-11.0)
[2016-12-01 07:35] LABS: APTT (PATIENT) 26.9 SEC (24.3-30.1)
[2016-12-01 07:46] LABS: BICARBONATE 26.8 MEQ/L (21.0-32.0); POTASSIUM 3.7 MEQ/L (3.5-5.1)
[2016-12-01 08:00] VITALS: BP 140/104; PULSE 55; RESP 20; TEMP 97.4; O2SAT 95
[2016-12-01 08:30] VITALS: PULSE 94
[2016-12-01] MEDS: FOLIC ACID 1 MG TAB PO SCH (08:41)
[2016-12-01] MEDS: APIXABAN 5 MG TABLET PO SCH (08:41)
[2016-12-01] MEDS: ASPIRIN 81 MG CHEW TAB PO SCH (08:42)
[2016-12-01] MEDS: METOPROLOL TARTRATE 50 MG TAB PO SCH (08:42)
[2016-12-01 09:19] VITALS: O2SAT 97
[2016-12-01] MEDS ORDERED: METO-309 PO (12:48)
[2016-12-01] MEDS ORDERED: FOLI20CA PO (12:48)
[2016-12-01] MEDS ORDERED: OXYC-392 PO (12:48)
[2016-12-01] MEDS ORDERED: APIX5TAB PO (12:48)
--- NOTE | 2016-12-01 12:53 | HHI.DCPOC ---
Discharge Care Plan Diagnosis: (1) Atrial fibrillation with RVR (2) Shortness of breath at rest (3) CHF (congestive heart failure) Goals to Promote Your Health * To prevent worsening of your condition and complications * To maintain your health at the optimal level Directions to Meet Your Goals Take your medications as prescribed Follow your dietary instruction Follow activity as directed Keep your appointments as scheduled Take your immunizations and boosters as scheduled If your symptoms worsen call your PCP, if no PCP go to Urgent Care Center or Emergency Room Smoking is Dangerous to Your Health. Avoid second hand smoke Call the 24-hour hour crisis hotline for domestic abuse at Lencho Prescott DO Dec 01, 2016 12:53
--- NOTE | 2016-12-01 13:03 | HHI.DS ---
Discharge Summary Admission Date Nov 28, 2016 at 16:18 Discharge Date: Dec 01, 2016 Admitting Diagnosis A. fib with RVR, shortness of breath (1) Shortness of breath at rest ICD Code: R06.02 (2) Atrial fibrillation with RVR ICD Code: I48.91 Diagnosis: Principal (3) CHF (congestive heart failure) ICD Code: I50.9 Diagnosis: Principal Procedures None Brief History - From Admission 61-year-old male with past medical history of HTN, RA, spinal stenosis, DJD, OA who presented for shortness of breath. The patient states that he's been having shortness breath and dyspnea with exertion for the past week. He states that is been getting worse over the past 2 days. He complains of palpitations and feeling like his heart is racing. He denies any chest pain. He denies ever experiencing any symptoms like this before. He states someone mentioned about 30 years ago that he might have an irregular heartbeat. He denies ever being told he has atrial fibrillation. He's never seen a bus mechanic. He denies any recent illness, but has had a cough productive with white sputum for the last 3 days. He denies any fever, chills, nausea, vomiting, diarrhea. CBC/BMP: 12/01/16 0613 12/01/16 0613 Significant Findings Laboratory Tests Test 11/28/16 11/28/16 11/29/16 11/30/16 15:08 23:23 09:24 07:45 Mean Corpuscular Hemoglobin 31.8 % 31.8 % Concent (32.0-36.0) (32.0-36.0) Chloride Level 109 MEQ/L 108 MEQ/L (98-107) (98-107) Estimat Glomerular Filtration 84 ML/MIN (>89) 86 ML/MIN (>89) Rate Troponin I 0.08 NG/ML 0.07 NG/ML (0.02-0.05) (0.02-0.05) B-Type Natriuretic Peptide 402 PG/ML (0-100) Activated Partial 65.8 SEC 70.3 SEC 102.1 SEC Thromboplast Time (24.3-30.1) (24.3-30.1) (24.3-30.1) Potassium Level 3.2 MEQ/L (3.5-5.1) Random Glucose 110 MG/DL (74-106) Test 11/30/16 12/01/16 10:06 06:13 Activated Partial 59.8 SEC Thromboplast Time (24.3-30.1) Mean Platelet Volume 11.5 FL (7.0-11.0) Blood Urea Nitrogen 19 MG/DL (7-18) Estimat Glomerular Filtration 79 ML/MIN (>89) Rate Imaging Last Impressions Chest X-Ray 11/29/16 0000 Signed Impressions: Service Date/Time: Tuesday, November 29, 2016 04:25 - CONCLUSION: Slight CHF. Catrachita De La Cruz MD PE at Discharge GENERAL: Well-developed well-nourished. In no acute distress. SKIN: Warm and dry. No lesions noted. HEENT: Normocephalic. Pupils equal and round. Mucous membranes pink and moist. CARDIOVASCULAR: Irregularly irregular. No murmur appreciated. RESPIRATORY: CTAB. GASTROINTESTINAL: Abdomen soft, non-tender, nondistended. Bowel sounds x4. MUSCULOSKELETAL: No obvious deformities. No clubbing or cyanosis. No edema. NEUROLOGICAL: Awake and alert. No focal neurological deficits. Moves upper and lower extremities spontaneously. Normal speech. Strength 5/5. PSYCHIATRIC: Appropriate mood and affect; insight and judgment normal. Pt update on day of discharge The pt was feeling well and wanted to go home. No acute complaints. He said he would find a PCP in the next few weeks. Discussed with nursing and case management. Hospital Course New-onset atrial fibrillation with rapid ventricular response Chadsvasc 2. EKG with A. fib with RVR, no definite ischemic changes. Troponin peaked at 0.08. TSH WNL. Cardiology was consulted. Status post Cardizem drip. He was continued on a heparin gtt. PO Lopressor was increased by cardiology. He was started on ASA but that was switched to Eliquis. Case management was consulted and will be able to get the pt a month free of Eliquis. He will follow up with his PCP and cardiology. Acute Systolic CHF EF 50%, mod MR on echo. The patient developed shortness of breath and repeat chest x-ray showed evidence of CHF. BNP is elevated over 400. He received Lasix and his symptoms improved. He will be discharged on Lopressor and ASA. Hypertension He will be discharged on Lopressor 75 mg BID and will follow up with cardiology. Pt Condition on Discharge: Stable Discharge Disposition: Discharge Home Discharge Time: > 30 minutes Discharge Instructions DIET: Follow Instructions for: Heart Healthy Diet Activities you can perform: Weight Bearing as [place] Follow up Referrals: Cardiology - [address] Shaver PCP Follow-up - 1 Week New Medications: Apixaban (Eliquis) 5 Mg Tab 5 MG PO BID A fib #60 TAB Metoprolol Tartrate (Lopressor) 50 Mg Tab 75 MG PO Q12HR A fib #90 TAB Oxycodone (Oxycodone) 5 Mg Tab 5 MG PO Q6HR PRN pain #14 TAB Changed Medications: Folic Acid (Folic Acid) 20 Mg Cap 10 MG PO DAILY Vitamin #0 CAP (Changed from: 20 MG) Continued Medications: Calcium Carbonate-Cholecalciferol (Oyster Shell Calcium + D) 500-400 Mg-Unit Tab 1 TAB PO DAILY TAB Ibuprofen (Motrin Ib) 200 Mg Tablet 800 MG PO PRN PAIN SCALE 1 TO 5 Methotrexate (Methotrexate) 2.5 Mg Tab 20 MG PO Q7D Ref 0 TAB Discontinued Medications: Amlodipine (Amlodipine) 5 Mg Tab 5 MG PO DAILY Blood Pressure Management Ref 0 TAB Calcium Carbonate-Cholecalciferol ([place] Calcium + D3) 500-200 Mg-Unit Tab 1 TAB PO DAILY Ref 0 TAB Losartan (Losartan) 25 Mg Tab 12.5 MG PO DAILY Blood Pressure Management Ref 0 TAB Lencho Prescott DO Dec 01, 2016 13:03
== END 2016-12-01 13:25 | disposition home or self-care (01) | DRG 308 ==
LOC: NEPD 13:30 → NEDA 16:18 → N04A 17:46
PROVIDERS: ADMIT Hospitalist; ATTEND Hospitalist
DX: I48.91 Unspecified atrial fibrillation (principal); I50.21 Acute systolic (congestive) heart failure; I11.0 Hypertensive heart disease with heart failure; F17.210 Nicotine dependence, cigarettes, uncomplicated; J45.909 Unspecified asthma, uncomplicated; M19.90 Unspecified osteoarthritis, unspecified site; M06.9 Rheumatoid arthritis, unspecified; M48.00 Spinal stenosis, site unspecified
CPT/HCPCS: 71010; 80048; 80061; 82272; 83036; 83735; 83880; 84443; 84484; 85025; 85027; 85610; 85730; 90732; 93005; 93306; 96374; 96375; J1644; J1940

== ENCOUNTER 2016-12-22 13:26 | Emergency (ER) | payer MEDICAID ==
[~2016-12-22] VITALS: Ht 177.8 cm; Wt 80.0 kg
[~2016-12-22 13:26] MED LIST: APIX5TAB PO; FOLI20CA PO; IBUP-1129 PO; METH2.5T PO; METO-309 PO; OXYC-392 PO; OYST500T53 PO
[2016-12-22 13:28] VITALS: BP 183/106; PULSE 74; RESP 36; TEMP 97.7; O2SAT 97
--- NOTE | 2016-12-22 13:35 | PD ---
Physical Exam Time Seen by Provider: 13:33 Narrative 61yo M c/o epigastric pain, SOB, and feeling same symptoms of Afib x 3 weeks. Denies chest pain. Reports heart palpitations. Reports fatigue. Patient seen in triage. VS reviewed. Awaiting bed placement. Data Data Last Documented VS Vital Signs Date Time Temp Pulse Resp B/P Pulse Ox O2 Delivery O2 Flow Rate FiO2 12/22/16 13:28 97.7 74 36 183/106 97 Room Air [facility] Supervised Visit with SHAHAB: Vale Villalobos Dec 22, 2016 13:35
[2016-12-22] MEDS ORDERED: FUROSEMIDE 40 MG/4 ML VIAL IV PUSH ONE (14:00)
[2016-12-22 14:18] LABS: AUTOMATED NEUTROPHIL # 4.6 TH/MM3 (1.8-7.7); BASOPHIL # 0.1 TH/MM3 (0-0.2); BASOPHIL % 0.8 % (0.0-2.0); EOSINOPHIL # 0.1 TH/MM3 (0-0.4); EOSINOPHIL % 1.7 % (0.0-4.0); HEMATOCRIT 42.4 % (39.0-51.0); HEMO FLAGS DIFF FINAL; LYMPH % 24.8 % (9.0-44.0); LYMPHOCYTE # 1.8 TH/MM3 (1.0-4.8); MEAN CELL VOLUME 88.9 FL (80.0-100.0); MEAN CORPUSCULAR HEMOGLOBIN 28.6 PG (27.0-34.0); MEAN CORPUSCULAR HGB CONC 32.2 % (32.0-36.0); NEUT % 61.7 % (16.0-70.0); PLATELET COUNT 202 TH/MM3 (150-450); RED BLOOD COUNT 4.77 MIL/MM3 (4.50-5.90); RED CELL DISTRIBUTION WIDTH 15.1 % (11.6-17.2); WHITE BLOOD COUNT 7.4 TH/MM3 (4.0-11.0)
--- NOTE | 2016-12-22 14:20 | RADRPT ---
EXAM DATE/TIME: 12/22/2016 13:58 [place] COMPARISON: CHEST SINGLE AP, November 28, 2016, 15:01. CHEST SINGLE AP, November 29, 2016, 4:25. INDICATIONS : Short of breath with weakness x1 week, getting progressively worse. History of A-fib. MEDICAL HISTORY : A-fib SURGICAL HISTORY : None. ENCOUNTER: Initial ACUITY: 1 week PAIN SCORE: 0/10 LOCATION: Bilateral chest FINDINGS: There has been improvement in the previously noted pulmonary edema. There is improved aeration of the lung xavier. There is some platelike atelectasis in the left midlung. No definite pleural effusions. The heart size is stable. The bony structures are stable. CONCLUSION: There has been improvement in the mild pulmonary edema which was noted on the prior study. Platelike atelectasis in the left midlung. Shamar Foster MD on December 22, 2016 at 14:17 Board Certified Radiologist. This report was verified electronically.
[2016-12-22 14:25] LABS: APTT (PATIENT) 25.1 SEC (24.3-30.1); PROTHROMBIN TIME - PATIENT 11.5 SEC (9.8-11.6)
[2016-12-22] MEDS ORDERED: CLOT1CRE TOPICAL (14:31)
[2016-12-22] MEDS ORDERED: FOLI1TAB6 PO (14:31)
[2016-12-22] MEDS ORDERED: IBUP800T23 PO (14:31)
[2016-12-22 14:33] LABS: ALT (GPT) 53 U/L (12-78)
[2016-12-22 14:35] LABS: ANION GAP 8 MEQ/L (5-15); AST (GOT) 54 U/L (15-37); BICARBONATE 24.1 MEQ/L (21.0-32.0); BLOOD UREA NITROGEN 14 MG/DL (7-18); CHLORIDE 111 MEQ/L (98-107); GLOMERULAR FILTRATION RATE 82 ML/MIN (>89); SODIUM (NA) 143 MEQ/L (136-145)
[2016-12-22 14:36] LABS: POTASSIUM 3.8 MEQ/L (3.5-5.1)
[2016-12-22 15:07] LABS: ALKALINE PHOSPHATASE 114 U/L (45-117); CREATINE KINASE 164 U/L (39-308); TOTAL BILIRUBIN ADULT 0.6 MG/DL (0.2-1.0)
[2016-12-22] MEDS ORDERED: POTA10CA PO (15:16)
[2016-12-22] MEDS ORDERED: FURO1TAB62 PO (15:16)
--- NOTE | 2016-12-22 15:16 | PD ---
HPI Chief Complaint: Cardiac Complaint Time Seen by Provider: 13:48 Travel History International Travel<30 days: No Contact w/Intl Traveler<30days: No Traveled to known affect area: No History of Present Illness HPI 61-year-old male complains of shortness of breath and generalized malaise. Patient was admitted to [facility] November 28 and discharged December 01 with diagnosis of new onset atrial fibrillation, systolic CHF and hypertension. Patient was discharged home with prescription for Eliquis, Lopressor, oxycodone , methotrexate and ibuprofen. Patient states that he has persistent shortness of breath, dyspnea on exertion since discharge. Patient states that he has increasing swelling of the lower extremity since discharge. Patient denies any headache. Patient denies any chest pain. Patient denies abdominal pain. Patient denies any fever chills. PFSH Past Medical History Arthritis: Yes (RA , OSTEOARTHRITIS) Asthma: Yes Heart Rhythm Problems: Yes (IRREGULAR HEART RYTHUM ) Cancer: No Cardiovascular Problems: Yes High Cholesterol: No Diminished Hearing: No Endocrine: No Gastrointestinal Disorders: No Genitourinary: No Hypertension: Yes Immune Disorder: No Implanted Vascular Access Dvce: No Musculoskeletal: Yes (SPINAL STENOSIS, DEGENERATIVE JOINT DISEASE ) Neurologic: No Psychiatric: No Reproductive: No Respiratory: Yes Past Surgical History Other Surgery: Yes Social History Alcohol Use: Yes ("COUPLE DRINKS PER WEEK") Tobacco Use: Yes (0.5 ppd) Substance Use: No Allergies-Medications (Allergen,Severity, Reaction): Coded Allergies: No Known Allergies (Unverified , 11/28/16) Reported Meds & Prescriptions Reported Meds & Active Scripts Active Lopressor (Metoprolol Tartrate) 50 Mg Tab 75 Mg PO Q12HR Eliquis (Apixaban) 5 Mg Tab 5 Mg PO BID Reported Clotrimazole Topical (Clotrimazole) 1% Cream 1 Applic TOPICAL BID Folic Acid 1 Mg Tablet 1 Mg PO DAILY Ibuprofen 800 Mg Tab 800 Mg PO Q8H PRN Oyster Shell Calcium + D (Calcium Carbonate-Cholecalciferol) 500-400 Mg-Unit Tab 1 Tab PO DAILY Methotrexate 2.5 Mg Tab 20 Mg PO Q7D Saturdays Review of Systems General / Constitutional: No: Fever Eyes: No: Visual changes HENT: No: Headaches Cardiovascular: No: Chest Pain or Discomfort Respiratory: Positive: Shortness of Breath Gastrointestinal: No: Abdominal Pain Genitourinary: No: Dysuria Musculoskeletal: Positive: Edema, No: Pain Skin: No Rash Neurologic: No: Weakness Psychiatric: No: Depression Endocrine: No: Polydipsia Hematologic/Lymphatic: No: Easy Bruising Physical Exam Narrative GENERAL: Well-nourished, well-developed patient. SKIN: Focused skin assessment warm/dry. HEAD: Normocephalic. EYES: No scleral icterus. No injection or drainage. NECK: Supple, trachea midline. No JVD or lymphadenopathy. CARDIOVASCULAR: Regular rate and rhythm without murmurs, gallops, or rubs. RESPIRATORY: Breath sounds equal bilaterally. No accessory muscle use. GASTROINTESTINAL: Abdomen soft, non-tender, nondistended. MUSCULOSKELETAL: Patient has +1 to +2 pitting edema lower extremity. BACK: Nontender without obvious deformity. No CVA tenderness. Neurologic exam normal. Data Data Last Documented VS Vital Signs Date Time Temp Pulse Resp B/P Pulse Ox O2 Delivery O2 Flow Rate FiO2 12/22/16 13:39 96 18 Room Air 12/22/16 13:28 97.7 183/106 97 Orders Complete Blood Count With Diff (12/22/16 13:57) Comprehensive Metabolic Panel (12/22/16 13:57) Creatine Kinase (Cpk) (12/22/16 13:57) Troponin I (12/22/16 13:57) B-Type Natriuretic Peptide (12/22/16 13:57) Prothrombin Time / Inr (Pt) (12/22/16 13:57) Act Partial Throm Time (Ptt) (12/22/16 13:57) Thyroid Stimulating Hormone (12/22/16 13:57) Chest, Single Ap (12/22/16 13:57) Iv Access Insert/Monitor (12/22/16 13:57) Ecg Monitoring (12/22/16 13:57) Oximetry (12/22/16 13:57) Furosemide Inj (Lasix Inj) (12/22/16 14:00) Electrocardiogram (12/22/16 13:39) Labs Laboratory Tests Test 12/22/16 14:06 White Blood Count 7.4 TH/MM3 Red Blood Count 4.77 MIL/MM3 Hemoglobin 13.6 GM/DL Hematocrit 42.4 % Mean Corpuscular Volume 88.9 FL Mean Corpuscular Hemoglobin 28.6 PG Mean Corpuscular Hemoglobin 32.2 % Concent Red Cell Distribution Width 15.1 % Platelet Count 202 TH/MM3 Mean Platelet Volume 10.9 FL Neutrophils (%) (Auto) 61.7 % Lymphocytes (%) (Auto) 24.8 % Monocytes (%) (Auto) 11.0 % Eosinophils (%) (Auto) 1.7 % Basophils (%) (Auto) 0.8 % Neutrophils # (Auto) 4.6 TH/MM3 Lymphocytes # (Auto) 1.8 TH/MM3 Monocytes # (Auto) 0.8 TH/MM3 Eosinophils # (Auto) 0.1 TH/MM3 Basophils # (Auto) 0.1 TH/MM3 CBC Comment DIFF FINAL Differential Comment Prothrombin Time 11.5 SEC Prothromb Time International 1.0 RATIO Ratio Activated Partial 25.1 SEC Thromboplast Time Sodium Level 143 MEQ/L Potassium Level 3.8 MEQ/L Chloride Level 111 MEQ/L Carbon Dioxide Level 24.1 MEQ/L Anion Gap 8 MEQ/L Blood Urea Nitrogen 14 MG/DL Creatinine 1.11 MG/DL Estimat Glomerular Filtration 82 ML/MIN Rate Random Glucose 74 MG/DL Calcium Level 8.2 MG/DL Aspartate Amino Transf 54 U/L (AST/SGOT) Alanine Aminotransferase 53 U/L (ALT/SGPT) B-Type Natriuretic Peptide 1132 PG/ML Albumin 3.2 GM/DL MDM Medical Decision Making Medical Screen Exam Complete: Yes Emergency Medical Condition: Yes Interpretation(s) Last Impressions Chest X-Ray 12/22/16 1357 Signed Impressions: Service Date/Time: Thursday, December 22, 2016 13:58 - CONCLUSION: There has been improvement in the mild pulmonary edema which was noted on the prior study. Platelike atelectasis in the left midlung. Shamar Foster MD 1507 p.m. CBC within normal limit. CMP within normal limit. BNP 1132. Troponin 0.08. Differential Diagnosis Differential diagnosis including exacerbation CHF breath, bronchitis, pneumonia , PE, pneumothorax. Narrative Course 61-year-old male with shortness of breath and lower extremity edema. History of CHF and atrial fibrillation. Lasix 40 mg IV given. Diagnosis Primary Impression: Acute exacerbation of CHF (congestive heart failure) Qualified Code: I50.23 - Acute on chronic systolic congestive heart failure Patient Instructions: General Instructions Additional Instructions: Lasix and potassium as directed. Continue with all other medications. Follow- up with personal physician. Return if worse. Med/Other Pt SpecificInfo: Prescription(s) given Scripts Potassium Chloride ER 10 Meq Cap10 Meq PO DAILY #30 CAP Ref 0 Prov:Nato Monet MD 12/22/16 Furosemide (Lasix)20 Mg Tab20 Mg PO DAILY #30 TAB Ref 0 Prov:Nato Monet MD 12/22/16 Disposition: 01 DISCHARGE HOME Condition: Stable Nato Monet MD Dec 22, 2016 15:16
[2016-12-22 15:51] VITALS: RESP 18; O2SAT 98
--- NOTE | 2016-12-23 16:54 | EKG ---
Date Performed: 12/22/2016 Time Performed: 13:39:30 PTAGE: 61 years EKG: Sinus rhythm WITH FREQUENT SUPRAVENTRICULAR PREMATURE COMPLEXES MODERATE T-WAVE ABNORMALITY, CONSIDER ANTEROLATER AL ISCHEMIA ABNORMAL ECG INTERPRETATION BASED ON A DEFAULT AGE OF 40 YEARS PREVIOUS TRACING : 11/28/2016 14.48 Compared to the previous tracing, previously multi-fo yovany atrial tachycardia DOCTOR: Sami Treviño Interpretating Date/Time 12/23/2016 16:52:53
== END 2016-12-22 15:53 | disposition home or self-care (01) ==
LOC: NEPC 13:26
DX: I50.9 Heart failure, unspecified (principal); R06.02 Shortness of breath; R60.9 Edema, unspecified; I48.91 Unspecified atrial fibrillation; I10 Essential (primary) hypertension; M06.9 Rheumatoid arthritis, unspecified; J45.909 Unspecified asthma, uncomplicated; F17.200 Nicotine dependence, unspecified, uncomplicated; Z79.899 Other long term (current) drug therapy
CPT/HCPCS: 71010; 80053; 82550; 83880; 84443; 84484; 85025; 85610; 85730; 93005; 96374; 99285; J1940

== ENCOUNTER 2017-06-16 13:54 | Emergency (ER) | payer MEDICAID ==
[~2017-06-16] VITALS: Ht 170.2 cm; Wt 92.0 kg
[~2017-06-16 13:54] MED LIST changes: +CLOT1CRE TOPICAL; +FOLI1TAB6 PO; -FOLI20CA PO; +FURO1TAB62 PO; -IBUP-1129 PO; +IBUP1TAB7 PO; -OXYC-392 PO; +POTA10CA PO
[2017-06-16 14:04] VITALS: BP 99/70; PULSE 72; RESP 16; TEMP 97.7; O2SAT 100
[2017-06-16] MEDS ORDERED: LOSA50TA PO (14:09)
[2017-06-16] MEDS ORDERED: AMLO5TAB2 PO (14:09)
[2017-06-16] MEDS ORDERED: LATA0.002 EACH EYE (14:09)
[2017-06-16] MEDS ORDERED: LIDOCAINE HCL 1% 30 ML VIAL INFIL ONE (14:15)
[2017-06-16] MEDS ORDERED: LIDOCAINE 1%/EPINEPHrine 1:100,000 SOLN 50 ML VIAL INFIL ONE (14:45)
[2017-06-16] MEDS ORDERED: ONDANSETRON ODT 4 MG TAB PO ONE (15:30)
[2017-06-16] MEDS ORDERED: HYDROmorphone HCL PF 2 MG/ML VIAL IV PUSH ONE (15:30)
--- NOTE | 2017-06-16 15:52 | RADRPT ---
EXAM DATE/TIME: 06/16/2017 14:40 [place] COMPARISON: No previous studies available for comparison. INDICATIONS : Left knee pain, swelling for 3 days with no known injury MEDICAL HISTORY : Osteoarthritis. Rheumatoid arthritis. SURGICAL HISTORY : None. ENCOUNTER: Initial ACUITY: 3 days PAIN SCORE: 8/10 LOCATION: Left entire knee FINDINGS: No definite fractures, or dislocations are identified. No definite lytic or sclerotic lesion is seen . Slight osteopenia is seen. Large joint effusion is seen. There is chondrocalcinosis worse in the l ateral compartment with slight to moderate osteoarthritis with tricompartment. CONCLUSION: Large joint effusion, chondrocalcinosis and osteoarthritis. Catrachita De La Cruz MD on June 16, 2017 at 15:49 Board Certified Radiologist. This report was verified electronically.
--- NOTE | 2017-06-16 16:08 | PD ---
HPI Chief Complaint: Injury Time Seen by Provider: 14:07 Travel History International Travel<30 days: No Contact w/Intl Traveler<30days: No Traveled to known affect area: No History of Present Illness HPI 62-year-old male arrives to the ER complaining of pain in the knees bilaterally. He woke up with severe pain in the left knee and was unable to ambulate. He reports previously having undergone cortisone injections was excellent benefit. He denies interval injury. No fever. He has had pain in the knees for years evidently. He denies any recent injury or excessive use. PFSH Past Medical History Arthritis: Yes (RA , OSTEOARTHRITIS) Asthma: Yes Heart Rhythm Problems: Yes (IRREGULAR HEART RYTHUM ) Cancer: No Cardiovascular Problems: Yes High Cholesterol: No Diminished Hearing: No Endocrine: No Gastrointestinal Disorders: No Genitourinary: No Hypertension: Yes Immune Disorder: No Implanted Vascular Access Dvce: No Musculoskeletal: Yes (SPINAL STENOSIS, DEGENERATIVE JOINT DISEASE ) Neurologic: No Psychiatric: No Reproductive: No Respiratory: Yes Influenza Vaccination: Yes Past Surgical History Other Surgery: Yes Social History Alcohol Use: Yes ("COUPLE DRINKS PER WEEK") Tobacco Use: Yes (0.5 ppd) Substance Use: No Allergies-Medications (Allergen,Severity, Reaction): Coded Allergies: No Known Allergies (Unverified Adverse Reaction, Unknown, 06/16/17) Reported Meds & Prescriptions Reported Meds & Active Scripts Active Potassium Chloride ER (Potassium Chloride) 10 Meq Cap 10 Meq PO DAILY Lasix (Furosemide) 20 Mg Tab 20 Mg PO DAILY Lopressor (Metoprolol Tartrate) 50 Mg Tab 75 Mg PO Q12HR Eliquis (Apixaban) 5 Mg Tab 5 Mg PO BID Reported Latanoprost Opth Drops (Latanoprost) 0.005% Drops 1 Drop EACH EYE HS Refrigerate until opened. Amlodipine (Amlodipine Besylate) 5 Mg Tab 5 Mg PO DAILY Losartan (Losartan Potassium) 50 Mg Tab 50 Mg PO DAILY Folic Acid 1 Mg Tablet 1 Mg PO DAILY Methotrexate 2.5 Mg Tab 20 Mg PO Q7D Saturdays Review of Systems Except as stated in HPI: all other systems reviewed are Neg General / Constitutional: No: Fever Musculoskeletal: Positive: Pain Physical Exam Narrative GENERAL: 62-year-old male pleasant well-nourished and developed SKIN: Focused skin assessment warm/dry. HEAD: Atraumatic. Normocephalic. EYES: Pupils equal and round. No scleral icterus. No injection or drainage. ENT: No nasal bleeding or discharge. Mucous membranes pink and moist. NECK: Trachea midline. No JVD. CARDIOVASCULAR: Regular rate and rhythm. No murmur appreciated. RESPIRATORY: No accessory muscle use. Clear to auscultation. Breath sounds equal bilaterally. GASTROINTESTINAL: Abdomen soft, non-tender, nondistended. Hepatic and splenic margins not palpable. MUSCULOSKELETAL: There is generalized swelling about the left knee primarily suprapatellar distribution. There is ballottement as well the left side. The right side shows minimal suprapatellar swelling with no ballottement. 2 posterior cells pedis bilaterally. No evidence of DVT. NEUROLOGICAL: Awake and alert. No obvious cranial nerve deficits. Motor grossly within normal limits. Normal speech. PSYCHIATRIC: Appropriate mood and affect; insight and judgment normal. Data Data Last Documented VS Vital Signs Date Time Temp Pulse Resp B/P (MAP) Pulse Ox O2 Delivery O2 Flow Rate FiO2 06/16/17 14:04 97.7 72 16 99/70 (80) 100 VS reviewed Orders Orders Lidocaine 1% Inj (Xylocaine 1% Inj) (06/16/17 14:15) Knee, Complete (4vws) (06/16/17 ) Fluid Culture And Gram Stain (06/16/17 14:13) Synovial Fluid Crystals (06/16/17 14:13) Synovial Fl Cell Count + Diff (06/16/17 14:13) Lidocai-Epi 1%-1:100,000 Inj (Xylocaine- (06/16/17 14:45) Basic Metabolic Panel (Bmp) (06/16/17 15:26) Complete Blood Count With Diff (06/16/17 15:26) Iv Access Insert/Monitor (06/16/17 15:26) Hydromorphone Pf Inj (Dilaudid Pf Inj) (06/16/17 15:30) Ondansetron Odt (Zofran Odt) (06/16/17 15:30) Labs Laboratory Tests Test 06/16/17 15:26 06/16/17 15:30 Blood Urea Nitrogen 15 MG/DL Creatinine 1.38 MG/DL Random Glucose 78 MG/DL Calcium Level 9.5 MG/DL Sodium Level 136 MEQ/L Potassium Level 4.2 MEQ/L Chloride Level 98 MEQ/L Carbon Dioxide Level 27.1 MEQ/L Anion Gap 11 MEQ/L Estimat Glomerular Filtration Rate 63 ML/MIN MDM Medical Decision Making Medical Screen Exam Complete: Yes Emergency Medical Condition: Yes Medical Record Reviewed: Yes Differential Diagnosis Septic arthritis, osteoarthritis, crystalloid arthropathy Narrative Course There is concern for septic arthritis. The patient underwent the aspiration and fluid was sent to lab. Oncoming provider to follow-up synovial fluid analysis and disposition appropriately. Procedures Procedure Narrative JOINT ASPIRATION: The left knee was sterilized with iodine. It was dressed. With sterile gloves a 20 cc syringe was attached to 22-gauge needle and passed into the joint space after lidocaine with epinephrine injection. Yellow slightly cloudy discharge collected. Edenilson Treviño MD Jun 16, 2017 16:08
[2017-06-16 16:55] LABS: BICARBONATE 27.1 MEQ/L (21.0-32.0); CALCIUM 9.5 MG/DL (8.5-10.1); CREATININE 1.38 MG/DL (0.60-1.30)
[2017-06-16 18:11] LABS: AUTOMATED NEUTROPHIL # 10.5 TH/MM3 (1.8-7.7); BASOPHIL # 0.1 TH/MM3 (0-0.2); BASOPHIL % 0.5 % (0.0-2.0); EOSINOPHIL % 0.3 % (0.0-4.0); HEMATOCRIT 40.5 % (39.0-51.0); HEMOGLOBIN 14.3 GM/DL (13.0-17.0); LYMPH % 11.1 % (9.0-44.0); LYMPHOCYTE # 1.6 TH/MM3 (1.0-4.8); MEAN CELL VOLUME 95.1 FL (80.0-100.0); MEAN CORPUSCULAR HEMOGLOBIN 33.6 PG (27.0-34.0); MEAN CORPUSCULAR HGB CONC 35.4 % (32.0-36.0); MEAN PLATELET VOLUME 8.6 FL (7.0-11.0); MONOCYTE # 2.2 TH/MM3 (0-0.9); NEUT % 73.1 % (16.0-70.0); PLATELET COUNT 266 TH/MM3 (150-450); RED BLOOD COUNT 4.26 MIL/MM3 (4.50-5.90); RED CELL DISTRIBUTION WIDTH 14.9 % (11.6-17.2); WHITE BLOOD COUNT 14.4 TH/MM3 (4.0-11.0)
[2017-06-16 19:17] LABS: WBC, SYNOVIAL FLUID 4785 /MM3 (0-200)
[2017-06-16 19:20] VITALS: BP 134/92; PULSE 53; RESP 18; O2SAT 96
[2017-06-16] MEDS ORDERED: KETOROLAC TROMETHAMINE 30 MG/ML (IVP) VIAL IV PUSH ONE (19:30)
--- NOTE | 2017-06-16 19:30 | PD ---
Physical Exam Date Seen by Provider: Jun 16, 2017 Data Data Last Documented VS Vital Signs Date Time Temp Pulse Resp B/P (MAP) Pulse Ox O2 Delivery O2 Flow Rate FiO2 06/16/17 19:20 53 18 134/92 (106) 96 Room Air 06/16/17 14:04 97.7 Orders Orders Lidocaine 1% Inj (Xylocaine 1% Inj) (06/16/17 14:15) Knee, Complete (4vws) (06/16/17 ) Fluid Culture And Gram Stain (06/16/17 14:13) Synovial Fluid Crystals (06/16/17 14:13) Synovial Fl Cell Count + Diff (06/16/17 14:13) Lidocai-Epi 1%-1:100,000 Inj (Xylocaine- (06/16/17 14:45) Basic Metabolic Panel (Bmp) (06/16/17 15:26) Complete Blood Count With Diff (06/16/17 15:26) Iv Access Insert/Monitor (06/16/17 15:26) Hydromorphone Pf Inj (Dilaudid Pf Inj) (06/16/17 15:30) Ondansetron Odt (Zofran Odt) (06/16/17 15:30) Ketorolac Inj (Toradol Inj) (06/16/17 19:30) Labs Laboratory Tests Test 06/16/17 15:26 06/16/17 15:30 06/16/17 17:55 Blood Urea Nitrogen 15 MG/DL Creatinine 1.38 MG/DL Random Glucose 78 MG/DL Calcium Level 9.5 MG/DL Sodium Level 136 MEQ/L Potassium Level 4.2 MEQ/L Chloride Level 98 MEQ/L Carbon Dioxide Level 27.1 MEQ/L Anion Gap 11 MEQ/L Estimat Glomerular Filtration Rate 63 ML/MIN Synovial Fluid Color STRAW Synovial Fluid Appearance SLIGHT Synovial Fluid WBC 4785 /MM3 Synovial Fluid RBC 60 /MM3 Synovial Fluid Neutrophils 90 % Synovial Fluid Lymphocytes 3 % Synovial Fluid Monocytes 6 % Synovial Fluid Synovial Lining Cell 1 % Synovial Fluid Crystals NONE White Blood Count 14.4 TH/MM3 Red Blood Count 4.26 MIL/MM3 Hemoglobin 14.3 GM/DL Hematocrit 40.5 % Mean Corpuscular Volume 95.1 FL Mean Corpuscular Hemoglobin 33.6 PG Mean Corpuscular Hemoglobin Concent 35.4 % Red Cell Distribution Width 14.9 % Platelet Count 266 TH/MM3 Mean Platelet Volume 8.6 FL Neutrophils (%) (Auto) 73.1 % Lymphocytes (%) (Auto) 11.1 % Monocytes (%) (Auto) 15.0 % Eosinophils (%) (Auto) 0.3 % Basophils (%) (Auto) 0.5 % Neutrophils # (Auto) 10.5 TH/MM3 Lymphocytes # (Auto) 1.6 TH/MM3 Monocytes # (Auto) 2.2 TH/MM3 Eosinophils # (Auto) 0.0 TH/MM3 Basophils # (Auto) 0.1 TH/MM3 CBC Comment AUTO DIFF Differential Comment AUTO DIFF CONFIRMED MDM Medical Record Reviewed: Yes Supervised Visit with SHAHAB: No Interpretation(s) Vital Signs Date Time Temp Pulse Resp B/P (MAP) Pulse Ox O2 Delivery O2 Flow Rate FiO2 06/16/17 19:20 53 18 134/92 (106) 96 Room Air 06/16/17 14:04 97.7 72 16 99/70 (80) 100 CBC & BMP Diagram 06/16/17 15:26 Calcium Level 9.5 06/16/17 17:55 Laboratory Tests Test 06/16/17 15:26 06/16/17 15:30 06/16/17 17:55 Blood Urea Nitrogen 15 MG/DL (7-18) Creatinine 1.38 MG/DL (0.60-1.30) Random Glucose 78 MG/DL (74-106) Calcium Level 9.5 MG/DL (8.5-10.1) Sodium Level 136 MEQ/L (136-145) Potassium Level 4.2 MEQ/L (3.5-5.1) Chloride Level 98 MEQ/L (98-107) Carbon Dioxide Level 27.1 MEQ/L (21.0-32.0) Anion Gap 11 MEQ/L (5-15) Estimat Glomerular Filtration Rate 63 ML/MIN (>89) Synovial Fluid Color STRAW (STRAW) Synovial Fluid Appearance SLIGHT (CLEAR) Synovial Fluid WBC 4785 /MM3 (0-200) Synovial Fluid RBC 60 /MM3 (0-0) Synovial Fluid Neutrophils 90 % (0-25) Synovial Fluid Lymphocytes 3 % Synovial Fluid Monocytes 6 % Synovial Fluid Synovial Lining Cell 1 % Synovial Fluid Crystals NONE (NONE) White Blood Count 14.4 TH/MM3 (4.0-11.0) Red Blood Count 4.26 MIL/MM3 (4.50-5.90) Hemoglobin 14.3 GM/DL (13.0-17.0) Hematocrit 40.5 % (39.0-51.0) Mean Corpuscular Volume 95.1 FL (80.0-100.0) Mean Corpuscular Hemoglobin 33.6 PG (27.0-34.0) Mean Corpuscular Hemoglobin Concent 35.4 % (32.0-36.0) Red Cell Distribution Width 14.9 % (11.6-17.2) Platelet Count 266 TH/MM3 (150-450) Mean Platelet Volume 8.6 FL (7.0-11.0) Neutrophils (%) (Auto) 73.1 % (16.0-70.0) Lymphocytes (%) (Auto) 11.1 % (9.0-44.0) Monocytes (%) (Auto) 15.0 % (0.0-8.0) Eosinophils (%) (Auto) 0.3 % (0.0-4.0) Basophils (%) (Auto) 0.5 % (0.0-2.0) Neutrophils # (Auto) 10.5 TH/MM3 (1.8-7.7) Lymphocytes # (Auto) 1.6 TH/MM3 (1.0-4.8) Monocytes # (Auto) 2.2 TH/MM3 (0-0.9) Eosinophils # (Auto) 0.0 TH/MM3 (0-0.4) Basophils # (Auto) 0.1 TH/MM3 (0-0.2) CBC Comment AUTO DIFF Differential Comment AUTO DIFF CONFIRMED Differential Diagnosis inflammatory vs septic joint Narrative Course Patient signed out to me by Dr. pratt. Patient pending joint aspiration and ultimate dispo of patient Laboratory Tests Test 06/16/17 15:26 06/16/17 15:30 06/16/17 17:55 Blood Urea Nitrogen 15 MG/DL (7-18) Creatinine 1.38 MG/DL (0.60-1.30) Random Glucose 78 MG/DL (74-106) Calcium Level 9.5 MG/DL (8.5-10.1) Sodium Level 136 MEQ/L (136-145) Potassium Level 4.2 MEQ/L (3.5-5.1) Chloride Level 98 MEQ/L (98-107) Carbon Dioxide Level 27.1 MEQ/L (21.0-32.0) Anion Gap 11 MEQ/L (5-15) Estimat Glomerular Filtration Rate 63 ML/MIN (>89) Synovial Fluid Color STRAW (STRAW) Synovial Fluid Appearance SLIGHT (CLEAR) Synovial Fluid WBC 4785 /MM3 (0-200) Synovial Fluid RBC 60 /MM3 (0-0) Synovial Fluid Neutrophils 90 % (0-25) Synovial Fluid Lymphocytes 3 % Synovial Fluid Monocytes 6 % Synovial Fluid Synovial Lining Cell 1 % Synovial Fluid Crystals NONE (NONE) White Blood Count 14.4 TH/MM3 (4.0-11.0) Red Blood Count 4.26 MIL/MM3 (4.50-5.90) Hemoglobin 14.3 GM/DL (13.0-17.0) Hematocrit 40.5 % (39.0-51.0) Mean Corpuscular Volume 95.1 FL (80.0-100.0) Mean Corpuscular Hemoglobin 33.6 PG (27.0-34.0) Mean Corpuscular Hemoglobin Concent 35.4 % (32.0-36.0) Red Cell Distribution Width 14.9 % (11.6-17.2) Platelet Count 266 TH/MM3 (150-450) Mean Platelet Volume 8.6 FL (7.0-11.0) Neutrophils (%) (Auto) 73.1 % (16.0-70.0) Lymphocytes (%) (Auto) 11.1 % (9.0-44.0) Monocytes (%) (Auto) 15.0 % (0.0-8.0) Eosinophils (%) (Auto) 0.3 % (0.0-4.0) Basophils (%) (Auto) 0.5 % (0.0-2.0) Neutrophils # (Auto) 10.5 TH/MM3 (1.8-7.7) Lymphocytes # (Auto) 1.6 TH/MM3 (1.0-4.8) Monocytes # (Auto) 2.2 TH/MM3 (0-0.9) Eosinophils # (Auto) 0.0 TH/MM3 (0-0.4) Basophils # (Auto) 0.1 TH/MM3 (0-0.2) CBC Comment AUTO DIFF Differential Comment AUTO DIFF CONFIRMED wbc 14.4, hemoglobin 14.3, hematocrit 40.5 Synovial fluid with 4,785 wbc, 60rbc, 90 neutrophils, no crystals Patient with most likely inflammatory synovial fluid vs septic joint. Gram stain is pending Plan to start on bactrim for possible underlying cellulitis, gram stain pending Patient will return to ER in 48 hours for re-evaluation Signs and symptoms of when to return to the ER was reviewed with patient in detail. Diagnosis Primary Impression: Inflammation of bursa Qualified Codes: M70.52 - Other bursitis of knee, left knee Additional Impression: Cellulitis Referrals: Montrell Randhawa Jr., MD Patient Instructions: General Instructions Additional Instruction: Please place ice and elevate your leg Please follow up with your primary care doctor in 2-3 days Return to the ER if symptoms worsen or progress or if you have develop any fever /chills Return to the ER as needed Take all antibiotics as prescribed Return to ER in 48 hours for re-evaluation of your knee Med/Other Pt SpecificInfo: Prescription(s) given Scripts Sulfamethoxazole-Trimethoprim (Bactrim DS) 800-160 Mg Tab 1 TAB PO BID for Infection for 10 Days, #20 TAB 0 Refills Prov: Marcie Ingram DO 06/16/17 Disposition: 01 DISCHARGE HOME Condition: Stable Marcie Ingram DO Jun 16, 2017 19:30
[2017-06-16] MEDS ORDERED: BACT800T5 PO (20:11)
[2017-06-16] MEDS ORDERED: SULFAMETHOXAZOLE-TRIMETHOPRIM DS 800-160 MG TAB PO ONE (20:15)
== END 2017-06-16 20:43 | disposition home or self-care (01) ==
LOC: NEPD 13:54
DX: M70.52 Other bursitis of knee, left knee (principal)
CPT/HCPCS: 20610; 73564; 80048; 85025; 87070; 87205; 89051; 89060; 96374; 96375; 99284; J1170; J1885

== ENCOUNTER 2017-08-13 14:42 | Observation (INO) | payer MEDICAID ==
[~2017-08-13] VITALS: Ht 167.6 cm; Wt 90.0 kg
[~2017-08-13 14:42] MED LIST changes: +AMLO5TAB2 PO; +BACT800T5 PO; -CLOT1CRE TOPICAL; -IBUP1TAB7 PO; +LATA0.002 EACH EYE; +LOSA50TA PO; -OYST500T53 PO
--- NOTE | 2017-08-13 14:55 | PD ---
HPI Chief Complaint: chest pain, palpitations, shortness of breath Time Seen by Provider: 14:54 Travel History International Travel<30 days: No Contact w/Intl Traveler<30days: No Traveled to known affect area: No History of Present Illness HPI Old male came to the emergency room with one-week history of progressive palpitations, chest discomfort and shortness of breath. He has history of A. fib and he was told if he had these symptoms he needs to come to the emergency room. Patient is on Lasix 40 mg once a day which has not been changed. Pain is mostly in the form of discomfort in the entire chest. No radiation. Shortness of breath and all the other symptoms worsen upon exercise or ambulation. Vital signs were relatively stable. Patient is on Eliquis for his A. fib. He appeared anxious. He was brought in by EMS. [facility] Past Medical History Narrative Medical List of his past medical, surgical, social and family histories be from the nursing note. Arthritis: Yes (RA , OSTEOARTHRITIS) Asthma: Yes Heart Rhythm Problems: Yes (IRREGULAR HEART RYTHUM ) Cancer: No Cardiovascular Problems: Yes High Cholesterol: No Diminished Hearing: No Endocrine: No Gastrointestinal Disorders: No Genitourinary: No Hypertension: Yes Immune Disorder: No Implanted Vascular Access Dvce: No Musculoskeletal: Yes (SPINAL STENOSIS, DEGENERATIVE JOINT DISEASE ) Neurologic: No Psychiatric: No Reproductive: No Respiratory: Yes Past Surgical History Other Surgery: Yes Social History Alcohol Use: Yes ("COUPLE DRINKS PER WEEK") Tobacco Use: Yes (0.5 ppd) Substance Use: No Allergies-Medications (Allergen,Severity, Reaction): Coded Allergies: No Known Allergies (Unverified Allergy, Unknown, 08/13/17) Comments No known drug allergies. Reported Meds & Prescriptions Reported Meds & Active Scripts Active Potassium Chloride ER (Potassium Chloride) 10 Meq Cap 10 Meq PO DAILY Lasix (Furosemide) 20 Mg Tab 20 Mg PO DAILY Lopressor (Metoprolol Tartrate) 50 Mg Tab 75 Mg PO Q12HR Eliquis (Apixaban) 5 Mg Tab 5 Mg PO BID Reported Amlodipine (Amlodipine Besylate) 5 Mg Tab 5 Mg PO DAILY Folic Acid 1 Mg Tablet 1 Mg PO DAILY Methotrexate 2.5 Mg Tab 20 Mg PO Q7D Saturdays Narrative Medication List of his home medications reviewed from the nursing note. Review of Systems Except as stated in HPI: all other systems reviewed are Neg Cardiovascular: Positive: Chest Pain or Discomfort, Palpitations Respiratory: Positive: Shortness of Breath Physical Exam Narrative GENERAL: Awake, alert, anxious SKIN: Focused skin assessment warm/dry. HEAD: Atraumatic. Normocephalic. EYES: Pupils equal and round. No scleral icterus. No injection or drainage. ENT: No nasal bleeding or discharge. Mucous membranes pink and moist. NECK: Trachea midline. No JVD. CARDIOVASCULAR: Regular rate and rhythm. No murmur appreciated. RESPIRATORY: No accessory muscle use. Clear to auscultation. Breath sounds equal bilaterally. GASTROINTESTINAL: Abdomen soft, non-tender, nondistended. Hepatic and splenic margins not palpable. MUSCULOSKELETAL: No obvious deformities. No clubbing. No cyanosis. No edema. NEUROLOGICAL: Awake and alert. No obvious cranial nerve deficits. Motor grossly within normal limits. Normal speech. PSYCHIATRIC: Appropriate mood and affect; insight and judgment normal. Data Data Last Documented VS Vital Signs Date Time Temp Pulse Resp B/P (MAP) Pulse Ox O2 Delivery O2 Flow Rate FiO2 08/13/17 15:14 69 18 97 Room Air 08/13/17 15:06 08/13/17 15:05 97.4 Orders Orders Electrocardiogram (08/13/17 14:55) Basic Metabolic Panel (Bmp) (08/13/17 14:55) B-Type Natriuretic Peptide (08/13/17 14:55) Complete Blood Count With Diff (08/13/17 14:55) Magnesium (Mg) (08/13/17 14:55) Prothrombin Time / Inr (Pt) (08/13/17 14:55) Troponin I (08/13/17 14:55) Ecg Monitoring (08/13/17 14:55) Bilateral Bp Monitoring (08/13/17 14:55) Iv Access Insert/Monitor (08/13/17 14:55) Oximetry (08/13/17 14:55) Oxygen Administration (08/13/17 14:55) Sodium Chloride 0.9% Flush (Ns Flush) (08/13/17 15:00) Chest, Pa & Lat (08/13/17 14:55) Admit Order (Ed Use Only) (08/13/17 16:49) Labs Laboratory Tests Test 08/13/17 15:10 08/13/17 16:02 Prothrombin Time 10.8 SEC Prothromb Time International Ratio 1.1 RATIO Blood Urea Nitrogen 12 MG/DL Creatinine 1.76 MG/DL Random Glucose 101 MG/DL Calcium Level 8.8 MG/DL Magnesium Level 1.8 MG/DL Sodium Level 138 MEQ/L Potassium Level 4.3 MEQ/L Chloride Level 106 MEQ/L Carbon Dioxide Level 24.9 MEQ/L Anion Gap 7 MEQ/L Estimat Glomerular Filtration Rate 48 ML/MIN Troponin I LESS THAN 0.02 NG/ML B-Type Natriuretic Peptide 41 PG/ML White Blood Count 7.1 TH/MM3 Red Blood Count 4.22 MIL/MM3 Hemoglobin 13.3 GM/DL Hematocrit 39.1 % Mean Corpuscular Volume 92.6 FL Mean Corpuscular Hemoglobin 31.5 PG Mean Corpuscular Hemoglobin Concent 34.0 % Red Cell Distribution Width 13.7 % Platelet Count 287 TH/MM3 Mean Platelet Volume 8.9 FL Neutrophils (%) (Auto) 66.6 % Lymphocytes (%) (Auto) 22.3 % Monocytes (%) (Auto) 9.3 % Eosinophils (%) (Auto) 1.1 % Basophils (%) (Auto) 0.7 % Neutrophils # (Auto) 4.7 TH/MM3 Lymphocytes # (Auto) 1.6 TH/MM3 Monocytes # (Auto) 0.7 TH/MM3 Eosinophils # (Auto) 0.1 TH/MM3 Basophils # (Auto) 0.1 TH/MM3 CBC Comment DIFF FINAL Differential Comment MDM Medical Decision Making Medical Screen Exam Complete: Yes Emergency Medical Condition: Yes Medical Record Reviewed: Yes Interpretation(s) Twelve-lead EKG was reviewed by me. Normal sinus rhythm, normal axis, PACs, lateral T wave inversion. Heart rate of 81 bpm. Differential Diagnosis ACS, non-STEMI, congestive heart failure Narrative Course 4:54 PM blood test results of back and within acceptable limits. Chest x-rays negative for CHF. Patient will be admitted to the chest pain center. Procedures EKG Prior to Arrival: Yes Diagnosis Primary Impression: Chest pain Qualified Codes: R07.9 - Chest pain, unspecified Additional Impression: Palpitations Admitting Information Admitting Physician Requests: Sofia Lisa MD Aug 13, 2017 14:55
[2017-08-13] MEDS ORDERED: SODIUM CHLORIDE 0.9% FLUSH 10 ML FLUSH IVF PRN (15:00)
[2017-08-13 15:05] VITALS: BP 110/70; PULSE 79; RESP 18; TEMP 97.4; O2SAT 98
[2017-08-13 15:06] VITALS: BP_SYST 110; BP_SYST 123; BP_DIAS 79; BP_DIAS 83; PULSE 79; RESP 18; O2SAT 98
--- NOTE | 2017-08-13 15:28 | RADRPT ---
EXAM DATE/TIME: 08/13/2017 15:12 [facility] COMPARISON: CHEST SINGLE AP, December 22, 2016, 13:58. INDICATIONS : Short of breath, weakness, fluttering in chest for 1 week MEDICAL HISTORY : Congestive heart failure. A-fib SURGICAL HISTORY : None. ENCOUNTER: Initial ACUITY: 1 week PAIN SCORE: Non-responsive. LOCATION: Bilateral chest FINDINGS: PA and lateral views of the chest demonstrate a normal-sized cardiac silhouette. There is no effusion , consolidation, or pneumothorax. The bones and soft tissues demonstrate no acute abnormality. There is osteoarthritis at the right glenohumeral joint. CONCLUSION: No acute cardiopulmonary abnormality is identified. Negro Loja MD on August 13, 2017 at 15:26 Board Certified Radiologist. This report was verified electronically.
[2017-08-13 15:37] LABS: INTERNATIONAL NORMALIZED RATIO 1.1 RATIO; PROTHROMBIN TIME - PATIENT 10.8 SEC (9.8-11.6)
[2017-08-13 15:47] LABS: BICARBONATE 24.9 MEQ/L (21.0-32.0); BLOOD UREA NITROGEN 12 MG/DL (7-18); CALCIUM 8.8 MG/DL (8.5-10.1); CHLORIDE 106 MEQ/L (98-107); CREATININE 1.76 MG/DL (0.60-1.30); GLOMERULAR FILTRATION RATE 48 ML/MIN (>89); GLUCOSE,RANDOM 101 MG/DL (74-106); MAGNESIUM 1.8 MG/DL (1.5-2.5); SODIUM (NA) 138 MEQ/L (136-145)
[2017-08-13 15:49] LABS: TROPONIN I LESS THAN 0.02 NG/ML (0.02-0.05)
[2017-08-13 16:42] LABS: AUTOMATED NEUTROPHIL # 4.7 TH/MM3 (1.8-7.7); BASOPHIL # 0.1 TH/MM3 (0-0.2); BASOPHIL % 0.7 % (0.0-2.0); EOSINOPHIL # 0.1 TH/MM3 (0-0.4); EOSINOPHIL % 1.1 % (0.0-4.0); HEMATOCRIT 39.1 % (39.0-51.0); HEMOGLOBIN 13.3 GM/DL (13.0-17.0); LYMPH % 22.3 % (9.0-44.0); LYMPHOCYTE # 1.6 TH/MM3 (1.0-4.8); MEAN CELL VOLUME 92.6 FL (80.0-100.0); MEAN CORPUSCULAR HEMOGLOBIN 31.5 PG (27.0-34.0); MEAN PLATELET VOLUME 8.9 FL (7.0-11.0); MONO % 9.3 % (0.0-8.0); MONOCYTE # 0.7 TH/MM3 (0-0.9); NEUT % 66.6 % (16.0-70.0); PLATELET COUNT 287 TH/MM3 (150-450); RED BLOOD COUNT 4.22 MIL/MM3 (4.50-5.90); RED CELL DISTRIBUTION WIDTH 13.7 % (11.6-17.2); WHITE BLOOD COUNT 7.1 TH/MM3 (4.0-11.0)
[2017-08-13] MEDS ORDERED: SODIUM CHLORIDE 0.9% FLUSH 10 ML FLUSH IV FLUSH PRN ×2 (17:00→17:15)
[2017-08-13] MEDS ORDERED: ONDANSETRON HCL 4 MG/2 ML VIAL IV PUSH PRN ×2 (17:00→17:15)
[2017-08-13] MEDS ORDERED: ACETAMINOPHEN 500 MG CPLT PO PRN ×2 (17:00→17:15)
[2017-08-13] MEDS ORDERED: NITROGLYCERIN 0.4 MG SL 25 TABS/BTL SL PRN (17:15)
[2017-08-13 17:16] VITALS: BP 113/78; PULSE 77; RESP 18; O2SAT 96
--- NOTE | 2017-08-13 17:36 | HHI.HP ---
[facility] Primary Care Physician Dr. Albrecht Chief Complaint Palpations and fatigue History of Present Illness 62-year-old male with known atrial fibrillation, rheumatoid arthritis, and hypertension presents to emergency room for further evaluation of palpitations and fatigue. Onset 1 week ago. Reports "not feeling like myself", productive cough, decreased appetite, intermittent dyspnea, and palpitations. Symptoms waxed and waned in intensity. This afternoon while waiting for a friend outside at a local convenience store reports possible syncope event. He was sitting on a bench and remembers seeing evaluation manager of the store. The next thing he remembers is the evaluation manager asking him if he was okay. Denies falling, reports remaining on bench during syncopal episode. Come to ER for further evaluation due to combination above. Denies having chest pain. No fevers or chills. Review of Systems General: One week fatigue and malaise. No weakness, fever, chills. HEENT: No KEITH, no vision changes, no nasal congestion or drainage, no dysphasia CV: As stated above. No CP, pressure. Intermittent palpations, known afib. Denies feelings of rapid heart bead or dizziness. RESP: History of asthma. Intermittent dyspnea, productive cough, thin white sputum, with occasional wheeze GI: No nausea, vomiting, or bowel changes. Decreased appetite 1 week. : No dysuria, urgency, frequency EXT: No lower leg edema, no paraesthesias MS: No discomfort or change in ROM. Rheumatoid arthritis. Right knee chronic pain. NEURO: As stated above, possible syncopal. No difficulty with balance or motor/ sensory deficits PSYCH: No anxiety, depression, suicidal ideation SKIN: No rashes, no concerning lesions Past Family Social History Allergies: Coded Allergies: No Known Allergies (Unverified Allergy, Unknown, 08/13/17) Past Medical History Atrial fibrillation, rheumatoid arthritis, osteoarthritis, asthma, hypertension , spinal stenosis Reported Medications Reported Meds & Active Scripts Active Potassium Chloride ER (Potassium Chloride) 10 Meq Cap 10 Meq PO DAILY Lasix (Furosemide) 20 Mg Tab 20 Mg PO DAILY Lopressor (Metoprolol Tartrate) 50 Mg Tab 75 Mg PO Q12HR Eliquis (Apixaban) 5 Mg Tab 5 Mg PO BID Amlodipine (Amlodipine Besylate) 5 Mg Tab 5 Mg PO DAILY Folic Acid 1 Mg Tablet 1 Mg PO DAILY Methotrexate 2.5 Mg Tab 20 Mg PO Q7D Saturdays Active Ordered Medications Current Medications Medications (Trade) Dose Ordered Sig/[place] Route Start Time Stop Time Status Last Admin (NS Flush) 2 ml UNSCH PRN IV FLUSH 08/13/17 17:15 (NS Flush) 2 ml BID IV FLUSH 08/13/17 21:00 (Tylenol) 500 mg Q4H PRN PO 08/13/17 17:15 (Zofran Inj) 4 mg Q6H PRN IV PUSH 08/13/17 17:15 (Nitrostat Sl) 0.4 mg Q5M PRN SL 08/13/17 17:15 (Aspirin) 325 mg DAILY PO 08/14/17 09:00 Family History Noncontributory for early onset cardiovascular disease. Social History No known coronary artery disease, diabetes, or hyperlipidemia. Known hypertension. Endorses occasional cigarette and alcohol. Past cardiac testing Patient's kick plate installer is Dr. Janett Joseph. No recent stress testing. Never required cardiac catheterization. Physical Exam Vital Signs Vital Signs Date Time Temp Pulse Resp B/P (MAP) Pulse Ox O2 Delivery O2 Flow Rate FiO2 08/13/17 17:26 08/13/17 17:16 77 18 113/78 (90) 96 Room Air 08/13/17 15:14 69 18 97 Room Air 08/13/17 15:06 18 98 Room Air 08/13/17 15:06 97 Room Air 08/13/17 15:06 79 110/79 (89) 123/83 (96) 08/13/17 15:05 97.4 79 18 110/70 (83) 98 Room Air Physical Exam GENERAL: Alert WN, WD, NAD, pleasant, male HEAD: NC, AT EYES: Sclera and conjunctiva injected ENT: Mucous membranes pink and moist CV: Regular rate with periods of irregularity, without murmur, rub, gallop. S1- S2 no S3-S4. RESP: Inspiratory and expiratory wheeze throughout, no crackles or rhonchi, symmetrical chest rise, nonlabored, able to speak in full sentences ABD: Soft, NT, ND, no masses, positive bowel tones EXT: Pulses +24, no dependent edema MS: Normal tone 4 extremities, nontender, no obvious deformities, full range of motion NEURO: CN II through CN XII grossly intact, motor strength 5/5 PSYCH: A+O 3, pleasant affect, appropriate speech, mood, insight and judgment SKIN: Normal turgor, normal texture, no lesions, no rashes Laboratory Laboratory Tests Test 08/13/17 15:10 08/13/17 16:02 Prothrombin Time 10.8 Prothromb Time International Ratio 1.1 Blood Urea Nitrogen 12 Creatinine 1.76 Random Glucose 101 Calcium Level 8.8 Magnesium Level 1.8 Sodium Level 138 Potassium Level 4.3 Chloride Level 106 Carbon Dioxide Level 24.9 Anion Gap 7 Estimat Glomerular Filtration Rate 48 Troponin I LESS THAN 0.02 B-Type Natriuretic Peptide 41 White Blood Count 7.1 Red Blood Count 4.22 Hemoglobin 13.3 Hematocrit 39.1 Mean Corpuscular Volume 92.6 Mean Corpuscular Hemoglobin 31.5 Mean Corpuscular Hemoglobin Concent 34.0 Red Cell Distribution Width 13.7 Platelet Count 287 Mean Platelet Volume 8.9 Neutrophils (%) (Auto) 66.6 Lymphocytes (%) (Auto) 22.3 Monocytes (%) (Auto) 9.3 Eosinophils (%) (Auto) 1.1 Basophils (%) (Auto) 0.7 Neutrophils # (Auto) 4.7 Lymphocytes # (Auto) 1.6 Monocytes # (Auto) 0.7 Eosinophils # (Auto) 0.1 Basophils # (Auto) 0.1 CBC Comment DIFF FINAL Differential Comment Result Diagram: 08/13/17 1602 08/13/17 1510 Imaging Chest x-ray read by radiologist reads no acute cardiopulmonary process. Course EKG First EKG-NSR, PACs, no ST change, T wave inversion V3-V6 Caprini VTE Risk Assessment Caprini VTE Risk Assessment: Mod/High Risk (score >= 2) Caprini Risk Assessment Model Point Value = 1 Point Value = 2 Point Value = 3 Point Value = 5 Age 41-60 Minor surgery BMI > 25 kg/m2 Swollen legs Varicose veins or History of unexplained or recurrent spontaneous Oral contraceptives or hormone replacement Sepsis (< 1 month) Serious lung disease, including pneumonia (< 1 month) Abnormal pulmonary function Acute myocardial infarction Congestive heart failure (< 1 month) History of inflammatory bowel disease Medical patient at bed rest Age 61-74 Arthroscopic surgery Major open surgery (> 45 min) Laparoscopic surgery (> 45 min) Malignancy Confined to bed (> 72 hours) Immobilizing plaster cast Central venous access Age >= 75 History of VTE Family history of VTE Factor V Leiden Prothrombin [id number] Lupus anticoagulant Anticardiolipin antibodies Elevated serum homocysteine Heparin-induced thrombocytopenia Other congenital or acquired thrombophilia Stroke (< 1 month) Elective arthroplasty Hip, pelvis, or leg fracture Acute spinal cord injury (< 1 month) Prophylaxis Regimen Total Risk Factor Score Risk Level Prophylaxis Regimen 0-1 Low Early ambulation 2 Moderate Order ONE of the following: *Sequential Compression Device (SCD) *Heparin 5000 units SQ BID 3-4 Higher Order ONE of the following medications: *Heparin 5000 units SQ TID *Enoxaparin/Lovenox 40 mg SQ daily (WT < 150 kg, CrCl > 30 mL/min) *Enoxaparin/Lovenox 30 mg SQ daily (WT < 150 kg, CrCl > 10-29 mL/min) *Enoxaparin/Lovenox 30 mg SQ BID (WT < 150 kg, CrCl > 30 mL/min) AND/OR *Sequential Compression Device (SCD) 5 or more Highest Order ONE of the following medications: *Heparin 5000 units SQ TID (Preferred with Epidurals) *Enoxaparin/Lovenox 40 mg SQ daily (WT < 150 kg, CrCl > 30 mL/min) *Enoxaparin/Lovenox 30 mg SQ daily (WT < 150 kg, CrCl > 10-29 mL/min) *Enoxaparin/Lovenox 30 mg SQ BID (WT < 150 kg, CrCl > 30 mL/min) AND *Sequential Compression Device (SCD) Assessment and Plan Assessment and Plan #1 Atypical chest discomfort-admitted to chest pain. Rule out with 3 sets of EKG , cardiac enzymes, and monitor on telemetry overnight. Will be seen and evaluated by Dr. Caitlin Shaver in am. Discussed possible cardiac stress testing in a.m., This will be determined after evaluation by kick plate installer. Patient is agreeable to plan of care. Monitor reviewed, no acute abnormalities or tachycardia noted. First ekg nsr with pacs, during exam in ER, cardiac rhythm appeared to be atrial fibrillation #2 History of atrial fibrillation-continue Eliquis #3 Viral syndrome-albuterol nebulizer treatments every 6 hours and every 2 when necessary, encouraged fluid intake and supportive measures. #4 History of hypertension-continue amlodipine Ute Romeo Aug 13, 2017 17:36
[2017-08-13] MEDS ORDERED: RESP: ALBUTEROL 2.5 MG/3 ML NEB (PRN) NEB (17:45)
[2017-08-13] MEDS: RESP: ALBUTEROL 2.5 MG/3 ML NEB (SCH) INH ×2 (18:00→20:57)
[2017-08-13 19:29] LABS: TROPONIN I LESS THAN 0.02 NG/ML (0.02-0.05)
[2017-08-13 20:27] VITALS: BP 127/87; PULSE 66; RESP 20; TEMP 98.2; O2SAT 95
[2017-08-13 20:59] VITALS: O2SAT 96
[2017-08-13] MEDS ORDERED: SODIUM CHLORIDE 0.9% FLUSH 10 ML FLUSH IV FLUSH SCH (21:00)
[2017-08-13] MEDS: SODIUM CHLORIDE 0.9% FLUSH 10 ML FLUSH IV FLUSH SCH (21:49)
[2017-08-13] MEDS: METOPROLOL TARTRATE 50 MG TAB PO SCH (21:50)
[2017-08-13] MEDS: APIXABAN 5 MG TABLET PO SCH (21:50)
[2017-08-13 22:52] VITALS: PULSE 66
[2017-08-13 22:52] LABS: TROPONIN I LESS THAN 0.02 NG/ML (0.02-0.05)
[2017-08-14] VITALS (7 sets, daily range): BP systolic 119–130; BP diastolic 72–84; PULSE 62–74; RESP 16–19; TEMP 97.6–98.6; O2SAT 96–99
[2017-08-14] MEDS: RESP: ALBUTEROL 2.5 MG/3 ML NEB (SCH) INH ×2 (03:04→07:32)
[2017-08-14] MEDS: METOPROLOL TARTRATE 50 MG TAB PO SCH (09:00)
[2017-08-14] MEDS ORDERED: FOLIC ACID 1 MG TAB PO SCH (09:00)
[2017-08-14] MEDS ORDERED: POTASSIUM CHLORIDE 10 MEQ CAP PO SCH (09:00)
[2017-08-14] MEDS ORDERED: amLODIPine BESYLATE 5 MG TAB PO SCH (09:00)
[2017-08-14] MEDS ORDERED: ASPIRIN 325 MG TAB PO SCH (09:00)
[2017-08-14] MEDS ORDERED: FUROSEMIDE 20 MG TAB PO SCH (09:00)
[2017-08-14] MEDS: SODIUM CHLORIDE 0.9% FLUSH 10 ML FLUSH IV FLUSH SCH (09:00)
[2017-08-14] MEDS: APIXABAN 5 MG TABLET PO SCH (09:32)
[2017-08-14] MEDS ORDERED: REGADENOSON INJ 0.4 MG/5 ML SYR ONE (12:31)
--- NOTE | 2017-08-14 13:34 | TR ---
Date Performed: 08/14/2017 Time Performed: 12:37:49 DOCTOR: Caitlin Shaver DRUG LIST: CLINICAL HISTORY: CHEST PAIN REASON FOR TEST: CHEST PAIN REASON FOR ENDING: OBSERVATION: CONCLUSION: Lexiscan stress test was performed under standard four minute protocol. Radionuclid e was injected one minute prior to ending the test. No electrocardiographic abormalities were present to suggest ischemia. Nuclear imaging and interpretation are pending. COMMENTS:
--- NOTE | 2017-08-14 13:36 | EKG ---
Date Performed: 08/13/2017 Time Performed: 21:43:46 PTAGE: 62 years EKG: Sinus rhythm WITH OCCASIONAL SUPRAVENTRICULAR PREMATURE COMPLEXES MODERATE T-WAVE ABNORMALITY, CONSIDER ANTEROLAT ERAL ISCHEMIA MODERATE T-WAVE ABNORMALITY, CONSIDER INFERIOR ISCHEMIA ABNORMAL ECG Since PREVIOUS TRACING , no significant change noted PREVIOUS TRACIN08/13/2017 18.58 DOCTOR: Caitlin Shaver Interpretating Date/Time 08/14/2017 13:35:58
--- NOTE | 2017-08-14 13:37 | EKG ---
Date Performed: 08/13/2017 Time Performed: 18:58:07 PTAGE: 62 years EKG: Sinus rhythm WITH OCCASIONAL SUPRAVENTRICULAR PREMATURE COMPLEXES MODERATE T-WAVE ABNORMALITY, CONSIDER ANTEROLAT ERAL ISCHEMIA ABNORMAL ECG Since PREVIOUS TRACING , no significant change noted PREVIOUS TRACIN08/13/2017 15.00 DOCTOR: Caitlin Shaver Interpretating Date/Time 08/14/2017 13:36:22
--- NOTE | 2017-08-14 13:40 | EKG ---
Date Performed: 08/13/2017 Time Performed: 15:00:00 PTAGE: 62 years EKG: Sinus rhythm WITH OCCASIONAL SUPRAVENTRICULAR PREMATURE COMPLEXES POSSIBLE RIGHT VENTRICULAR CONDUCTION DELAY MOD ERATE T-WAVE ABNORMALITY, CONSIDER ANTEROLATERAL ISCHEMIA ABNORMAL ECG Since PREVIOUS TRACING , no significant change noted DOCTOR: Caitlin Shaver Interpretating Date/Time 08/14/2017 13:38:14
--- NOTE | 2017-08-14 14:33 | RADRPT ---
EXAM DATE/TIME: 08/14/2017 12:09 [facility] COMPARISON: CHEST PA & LAT, August 13, 2017, 15:12. INDICATIONS : Syncope with palpitations. Angina. DOSE: 26.5 mCi Tc99m Myoview at stress. 8.5 mCi Tc99m Myoview at rest. 0.4 mg Lexiscan STRESS SYMPTOMS: Shortness of breath and nausea. EJECTION FRACTION: 41% MEDICAL HISTORY : Hypertension. Atrial fibrillation. SURGICAL HISTORY : Back surgery. ENCOUNTER: Initial ACUITY: 1 day PAIN SCALE: 3/10 LOCATION: Left chest TECHNIQUE: The patient underwent pharmacologic stress with infusion of prescribed dose. Continuous ECG tracing was monitored during stress. Gated SPECT imaging was performed after stress and conventional SPECT i maging was performed at rest. The examination was performed on a SPECT/CT scanner, both attenuation and non-corrected datasets were reviewed. FINDINGS: DISTRIBUTION: The maximum perfused segment at stress is in the anterolateral wall. PERFUSION STUDY: The pattern of perfusion at stress is within normal limits. No fixed or reversible perfusion defect i s identified. GATED STUDY: There is mild global hypokinesia. No focal wall motion abnormalities identified. CONCLUSION: 1. No fixed or reversible perfusion abnormality is identified. 2. Mild global hypokinesia with reduced left ventricle ejection fraction calculated at 41%. RISK CATEGORY: Intermediate (1-3% Annual Mortality Rate) Negro Loja MD on August 14, 2017 at 14:22 Board Certified Radiologist. This report was verified electronically.
--- NOTE | 2017-08-14 14:49 | HHI.DCPOC ---
Discharge Care Plan Diagnosis: (1) Chest pain (2) Palpitations (3) Hypertension (4) Upper respiratory infection, viral (5) History of atrial fibrillation Goals to Promote Your Health * To prevent worsening of your condition and complications * To maintain your health at the optimal level Directions to Meet Your Goals Take your medications as prescribed Follow your dietary instruction Follow activity as directed Keep your appointments as scheduled Take your immunizations and boosters as scheduled If your symptoms worsen call your PCP, if no PCP go to Urgent Care Center or Emergency Room Smoking is Dangerous to Your Health. Avoid second hand smoke Call the 24-hour hour crisis hotline for domestic abuse at Kaleb Garcia Aug 14, 2017 14:49
== END 2017-08-14 15:25 | disposition home or self-care (01) ==
LOC: NEPE 14:42 → NEDA 16:52 → NEPHCDU 17:51
PROVIDERS: ADMIT Internal Medicine Cardiovascular Disease; ATTEND Internal Medicine Cardiovascular Disease
DX: R07.89 Other chest pain (principal); I48.91 Unspecified atrial fibrillation; B34.9 Viral infection, unspecified; J06.9 Acute upper respiratory infection, unspecified; I11.0 Hypertensive heart disease with heart failure; I50.9 Heart failure, unspecified; I20.9 Angina pectoris, unspecified; R00.2 Palpitations; R53.83 Other fatigue; R94.31 Abnormal electrocardiogram [ECG] [EKG]; R55 Syncope and collapse; R11.0 Nausea; J45.909 Unspecified asthma, uncomplicated; M06.9 Rheumatoid arthritis, unspecified; M48.00 Spinal stenosis, site unspecified; M19.90 Unspecified osteoarthritis, unspecified site; F17.210 Nicotine dependence, cigarettes, uncomplicated; Z79.899 Other long term (current) drug therapy; Z79.01 Long term (current) use of anticoagulants
CPT/HCPCS: 71046; 78452; 80048; 82550; 82552; 83735; 83880; 84484; 85025; 85610; 93005; 93017; 94640; 94664; 99285; A9502; G0378; J2785; J7613

== ENCOUNTER 2017-08-22 17:49 | Observation (INO) | payer MEDICAID ==
[~2017-08-22 17:49] MED LIST changes: -BACT800T5 PO; -LATA0.002 EACH EYE; -LOSA50TA PO
[2017-08-22 18:07] VITALS: BP 116/74; PULSE 57; RESP 18; TEMP 98.1; O2SAT 96
[2017-08-22 18:58] LABS: AUTOMATED NEUTROPHIL # 11.1 TH/MM3 (1.8-7.7); BASOPHIL # 0.1 TH/MM3 (0-0.2); BASOPHIL % 0.8 % (0.0-2.0); EOSINOPHIL % 0.3 % (0.0-4.0); HEMATOCRIT 41.2 % (39.0-51.0); HEMOGLOBIN 14.2 GM/DL (13.0-17.0); LYMPH % 11.6 % (9.0-44.0); LYMPHOCYTE # 1.7 TH/MM3 (1.0-4.8); MEAN CELL VOLUME 91.8 FL (80.0-100.0); MEAN CORPUSCULAR HEMOGLOBIN 31.6 PG (27.0-34.0); MEAN CORPUSCULAR HGB CONC 34.5 % (32.0-36.0); MEAN PLATELET VOLUME 8.6 FL (7.0-11.0); MONO % 10.5 % (0.0-8.0); MONOCYTE # 1.5 TH/MM3 (0-0.9); NEUT % 76.8 % (16.0-70.0); PLATELET COUNT 344 TH/MM3 (150-450); RED BLOOD COUNT 4.49 MIL/MM3 (4.50-5.90); WHITE BLOOD COUNT 14.5 TH/MM3 (4.0-11.0)
[2017-08-22 19:12] LABS: ALBUMIN 2.9 GM/DL (3.4-5.0); AST (GOT) 24 U/L (15-37); BICARBONATE 30.3 MEQ/L (21.0-32.0); BLOOD UREA NITROGEN 15 MG/DL (7-18); CALCIUM 9.5 MG/DL (8.5-10.1); CHLORIDE 95 MEQ/L (98-107); CREATININE 1.29 MG/DL (0.60-1.30); GLOMERULAR FILTRATION RATE 69 ML/MIN (>89); GLUCOSE,RANDOM 95 MG/DL (74-106); MAGNESIUM 1.8 MG/DL (1.5-2.5); SODIUM (NA) 133 MEQ/L (136-145)
[2017-08-22 19:14] LABS: ALT (GPT) 22 U/L (12-78)
[2017-08-22 19:16] LABS: ALKALINE PHOSPHATASE 106 U/L (45-117); TOTAL BILIRUBIN ADULT 1.1 MG/DL (0.2-1.0); TOTAL PROTEIN 9.1 GM/DL (6.4-8.2)
[2017-08-22] MEDS ORDERED: KETOROLAC TROMETHAMINE 30 MG/ML (IVP) VIAL IV PUSH ONE (20:45)
[2017-08-22] MEDS ORDERED: POTASSIUM CHLORIDE 20 MEQ CONTROLLED RELEASE TAB PO ONE (20:45)
[2017-08-22] MEDS ORDERED: ACETAMINOPHEN/HYDROcodone 325 MG/5 MG TAB PO ONE (20:45)
[2017-08-22] MEDS ORDERED: DEXAMETHASONE SOD PHOS 4 MG/ML VIAL IV PUSH ONE (20:45)
--- NOTE | 2017-08-22 20:45 | PD ---
HPI Chief Complaint: Musculoskeletal Complaint Time Seen by Provider: 20:26 Travel History International Travel<30 days: No Contact w/Intl Traveler<30days: No Traveled to known affect area: No History of Present Illness HPI 62-year-old male with history of rheumatoid arthritis, gout, atrial fibrillation , CHF, hypertension, spinal stenosis, presents via EMS for evaluation of arthralgias. Symptoms started 4-5 days ago. He reports pain in both knees, MTP joint of both great toes, bilateral ankles. The pain is an aching pain which is constant and worse with movement, ambulation. He reports that he is currently homeless. He reports that he tried to ambulate with crutches but has had significant difficulty secondary to the bilateral distribution of his pain. He reports that he has had similar pain in the past secondary to gout and rheumatoid arthritis and this feels similar. He is not currently using any medication for symptom relief. He reports that he is sexually active with one girlfriend on a long-term basis. He denies any new sexual encounters. He denies any urethral discharge. He denies any history of gonorrhea. He denies any fevers, chills. He denies any myalgias. He denies any pain in the thighs or the calves. He denies any pain in the upper extremity joints. He has no other complaints at this time. PFSH Past Medical History Arthritis: Yes (RA , OSTEOARTHRITIS) Asthma: Yes Atrial Fibrillation: Yes Heart Rhythm Problems: Yes (AFIB) Cancer: No Cardiovascular Problems: Yes High Cholesterol: Yes Congestive Heart Failure: Yes Diminished Hearing: No Endocrine: No Gastrointestinal Disorders: No Genitourinary: No Hypertension: Yes Immune Disorder: No Implanted Vascular Access Dvce: No Musculoskeletal: Yes (SPINAL STENOSIS, DEGENERATIVE JOINT DISEASE ) Neurologic: No Psychiatric: No Reproductive: No Respiratory: Yes Past Surgical History Other Surgery: Yes Social History Alcohol Use: Yes ("COUPLE DRINKS PER WEEK") Tobacco Use: Yes (0.5 ppd) Substance Use: No Allergies-Medications (Allergen,Severity, Reaction): Coded Allergies: No Known Allergies (Unverified Allergy, Unknown, 08/13/17) Reported Meds & Prescriptions Reported Meds & Active Scripts Active Potassium Chloride ER (Potassium Chloride) 10 Meq Cap 10 Meq PO DAILY Lasix (Furosemide) 20 Mg Tab 20 Mg PO DAILY Lopressor (Metoprolol Tartrate) 50 Mg Tab 75 Mg PO Q12HR Eliquis (Apixaban) 5 Mg Tab 5 Mg PO BID Reported Amlodipine (Amlodipine Besylate) 5 Mg Tab 5 Mg PO DAILY Folic Acid 1 Mg Tablet 1 Mg PO DAILY Methotrexate 2.5 Mg Tab 20 Mg PO Q7D Saturdays Review of Systems Except as stated in HPI: all other systems reviewed are Neg Physical Exam Narrative GENERAL: Well-developed well-nourished male in no acute distress SKIN: Warm and dry. No erythema, no open wounds HEAD: Atraumatic. Normocephalic. EYES: Pupils equal and round. No scleral icterus. No injection or drainage. ENT: No nasal bleeding or discharge. Mucous membranes pink and moist. NECK: Trachea midline. No JVD. CARDIOVASCULAR: Regular rate and rhythm. No murmur appreciated. RESPIRATORY: No accessory muscle use. Clear to auscultation. Breath sounds equal bilaterally. GASTROINTESTINAL: Abdomen soft, non-tender, nondistended. Hepatic and splenic margins not palpable. MUSCULOSKELETAL: Bilateral knee joint effusions, some suprapatellar bursal swelling bilaterally. There is generalized tenderness to palpation to bilateral knees, ankles, great toes. There is no tenderness to palpation to the thighs, calves, feet. There is no lower extremity edema. 2+ dorsalis pedis pulse bilaterally. There is pain with range of motion activities of the lower extremity joints. NEUROLOGICAL: Awake and alert. No obvious cranial nerve deficits. Motor grossly within normal limits. Normal speech. Data Data Last Documented VS Vital Signs Date Time Temp Pulse Resp B/P (MAP) Pulse Ox O2 Delivery O2 Flow Rate FiO2 08/22/17 23:00 72 16 141/72 (95) 97 Room Air 08/22/17 18:07 98.1 Orders Orders Complete Blood Count With Diff (08/22/17 18:10) Comprehensive Metabolic Panel (08/22/17 18:10) B-Type Natriuretic Peptide (08/22/17 18:10) Magnesium (Mg) (08/22/17 18:10) Uric Acid (08/22/17 18:10) Potassium Chloride (Kcl) (08/22/17 20:45) Dexamethasone Inj (Decadron Inj) (08/22/17 20:45) Ketorolac Inj (Toradol Inj) (08/22/17 20:45) Acetamin-Hydrocod 325-5 Mg (Martin 5-325 (08/22/17 20:45) Knee, Complete (4vws) (08/22/17 ) Knee, Complete (4vws) (08/22/17 ) Morphine Inj (Morphine Inj) (08/22/17 23:45) Admit Order (Ed Use Only) (08/22/17 23:54) Labs Laboratory Tests Test 08/22/17 18:34 White Blood Count 14.5 TH/MM3 Red Blood Count 4.49 MIL/MM3 Hemoglobin 14.2 GM/DL Hematocrit 41.2 % Mean Corpuscular Volume 91.8 FL Mean Corpuscular Hemoglobin 31.6 PG Mean Corpuscular Hemoglobin Concent 34.5 % Red Cell Distribution Width 14.0 % Platelet Count 344 TH/MM3 Mean Platelet Volume 8.6 FL Neutrophils (%) (Auto) 76.8 % Lymphocytes (%) (Auto) 11.6 % Monocytes (%) (Auto) 10.5 % Eosinophils (%) (Auto) 0.3 % Basophils (%) (Auto) 0.8 % Neutrophils # (Auto) 11.1 TH/MM3 Lymphocytes # (Auto) 1.7 TH/MM3 Monocytes # (Auto) 1.5 TH/MM3 Eosinophils # (Auto) 0.0 TH/MM3 Basophils # (Auto) 0.1 TH/MM3 CBC Comment DIFF FINAL Differential Comment Blood Urea Nitrogen 15 MG/DL Creatinine 1.29 MG/DL Random Glucose 95 MG/DL Total Protein 9.1 GM/DL Albumin 2.9 GM/DL Calcium Level 9.5 MG/DL Magnesium Level 1.8 MG/DL Uric Acid 4.9 MG/DL Alkaline Phosphatase 106 U/L Aspartate Amino Transf (AST/SGOT) 24 U/L Alanine Aminotransferase (ALT/SGPT) 22 U/L Total Bilirubin 1.1 MG/DL Sodium Level 133 MEQ/L Potassium Level 3.1 MEQ/L Chloride Level 95 MEQ/L Carbon Dioxide Level 30.3 MEQ/L Anion Gap 8 MEQ/L Estimat Glomerular Filtration Rate 69 ML/MIN B-Type Natriuretic Peptide 27 PG/ML MDM Medical Decision Making Medical Screen Exam Complete: Yes Emergency Medical Condition: Yes Medical Record Reviewed: Yes Differential Diagnosis Rheumatoid arthritis, polyarthralgia secondary to gout, doubt gonococcal septic arthritis, osteoarthritis Narrative Course 62-year-old male with polyarthralgias in the bilateral lower extremity knees, ankles, great toes, similar to previous arthralgias that the patient has experienced. He has a history of gouty arthritis in the past as well as rheumatoid arthritis. I have reviewed his records. He was here with similar pain in June 16, 2017. He underwent knee joint aspiration at that time and there is no evidence of infectious process. I suspect his pain is secondary to rheumatoid arthritis versus possibly gout although this is less likely given the generalized polyarthralgia distribution. The plan will be to treat him symptomatically with Toradol, Decadron, Lortab here. X-ray imaging reveals joint effusions. Upon reexamination the patient's pain is still quite severe and he is unable to ambulate. Therefore he will be given IV morphine and he will be admitted for observation for intractable pain. Diagnosis Primary Impression: Inability to ambulate due to multiple joints Admitting Information Admitting Physician Requests: Observation Luis Enrique Ruiz Aug 22, 2017 20:45
--- NOTE | 2017-08-22 21:31 | RADRPT ---
EXAM DATE/TIME: 08/22/2017 21:02 [facility] COMPARISON: KNEE LEFT COMPLETE (4VWS), June 16, 2017, 14:40. INDICATIONS : Left knee pain and swelling. No known trauma. MEDICAL HISTORY : Osteoarthritis. Rheumatoid arthritis. Gout. SURGICAL HISTORY : None. ENCOUNTER: Initial ACUITY: 2 weeks PAIN SCORE: 10/10 LOCATION: Left knee. FINDINGS: 4 view examination demonstrates narrowing of the medial compartment, chondrocalcinosis of the lateral meniscus, diffuse osteopenia and fullness in the suprapatellar region. The degree of fullness in th e suprapatellar region is less severe than 06/16/17. No fracture seen. Diffuse osteopenia. CONCLUSION: 1. Knee effusion, smaller than on prior examination 06/16/17. 2. No fracture seen. Ambrocio Crocker MD on August 22, 2017 at 21:29 Board Certified Radiologist. This report was verified electronically.
--- NOTE | 2017-08-22 21:32 | RADRPT ---
EXAM DATE/TIME: 08/22/2017 21:07 [facility] COMPARISON: No previous studies available for comparison. INDICATIONS : Right knee pain and swelling. No known trauma. MEDICAL HISTORY : Osteoarthritis. Rheumatoid arthritis. Gout. SURGICAL HISTORY : None. ENCOUNTER: Initial ACUITY: 2 weeks PAIN SCORE: 10/10 LOCATION: Right Knee. FINDINGS: Mild osteopenia. Mild narrowing of the medial and lateral compartment without significant osteophyte formation. There is chondrocalcinosis of the medial lateral meniscus. There is distention of the s uprapatellar soft tissues measuring up to 2.4 cm in thickness, characteristic of a moderate-sized kne e effusion. No radiopaque foreign bodies. No fracture seen. CONCLUSION: Findings characteristic of a moderately large knee effusion. No fracture seen. Degenerative changes with chondrocalcinosis menisci. Ambrocio Crocker MD on August 22, 2017 at 21:30 Board Certified Radiologist. This report was verified electronically.
[2017-08-22 23:00] VITALS: BP 141/72; PULSE 72; RESP 16; O2SAT 97
[2017-08-22] MEDS ORDERED: MORPHINE SULFATE 4 MG/ML INJ IV PUSH ONE (23:45)
[2017-08-23] VITALS (8 sets, daily range): BP systolic 106–130; BP diastolic 63–74; PULSE 59–97; RESP 16–18; TEMP 97.6–98.6; O2SAT 97–99
[2017-08-23] MEDS ORDERED: POTASSIUM CHLORIDE 20 MEQ CONTROLLED RELEASE TAB PO ONE (01:00)
--- NOTE | 2017-08-23 01:25 | HHI.HP ---
[facility] Phys[facility] Dr. Slater Admission Diagnosis Intractable pain, arthralgias Diagnoses: (1) Knee effusion, left (2) Knee effusion, right (3) Inability to ambulate due to multiple joints Chief Complaint: bilateral knee, ankle, and foot pain with inability to ambulate Travel History International Travel<30 Days: No Contact w/Intl Traveler <30 Da: No Traveled to Known Affected Are: No History of Present Illness Mr Castillo is a 62 year-old male with a history of osteoarthritis, rheumatoid arthritis, gout, atrial fibrillation on Eliquis, asthma, hypertension, spinal stenosis, and tobacco abuse who presented to the ED on 08/22/17 complaining of inability to ambulate and multiple arthralgias. Despite analgesics provided in the ED, the patient remained nonambulatory due to pain and bilateral knee xrays demonstrate knee effusions. The patient is admitted to [facility] for intractable pain with immobility. The patient is seen in the ER. He is complaining of severe bilateral knee pain , ankle pain, and foot pain. He states his symptoms have been present for a couple of days but when it became so severe that he could not longer ambulate, he decided to seek emergency medical treatment. He reports aching and sharp pain rated 10/10. He does appear to be in obvious pain when attempting to move on the ED stretcher. He has palpable and tender bilateral knee effusions. His states that his left leg is rotating externally as a result of his knee pain. He is tender to knees, ankles, and foot palpation. Denies fevers, nausea, vomiting, diarrhea, chest pain, shortness of breath. Reports chills a couple of days ago and none since until feeling cold at the hospital. Afebrile here. . Review of Systems Except as stated in HPI: all other systems reviewed are Neg Past Family Social History Past Medical History osteoarthritis, rheumatoid arthritis, gout, atrial fibrillation on Eliquis, asthma, hypertension, spinal stenosis, and tobacco abuse . Past Surgical History back surgeries for spinal stenosis x 2015 was most recent Bilateral knee arthroscopies . Reported Medications Reported Meds & Active Scripts Active Potassium Chloride ER (Potassium Chloride) 10 Meq Cap 10 Meq PO DAILY Lasix (Furosemide) 20 Mg Tab 20 Mg PO DAILY Lopressor (Metoprolol Tartrate) 50 Mg Tab 75 Mg PO Q12HR Eliquis (Apixaban) 5 Mg Tab 5 Mg PO BID Reported Amlodipine (Amlodipine Besylate) 5 Mg Tab 5 Mg PO DAILY Folic Acid 1 Mg Tablet 1 Mg PO DAILY Methotrexate 2.5 Mg Tab 20 Mg PO Q7D Saturdays . Allergies: Coded Allergies: No Known Allergies (Unverified Allergy, Unknown, 08/13/17) Family History Mother with DM Father with Alzheimer's . Social History Tobacco: smokes 1/2 PPD for 15 years ETOH: drinks 1 - 2 drinks socially occasionally Illicit Drugs: denies . Physical Exam Vital Signs Vital Signs Date Time Temp Pulse Resp B/P (MAP) Pulse Ox O2 Delivery O2 Flow Rate FiO2 08/22/17 23:00 72 16 141/72 (95) 97 Room Air 08/22/17 18:07 98.1 57 18 116/74 (88) 96 Physical Exam Constitutional: This is a pleasant but slightly unkempt overweight male patient , in no apparent distress. Integumentary: No rashes. Cool and dry. HEAD: Atraumatic. Normocephalic. EYES: No scleral icterus. No injection or drainage. ENT: Nose without bleeding, purulent drainage. NECK: Trachea midline. No JVD. CARDIOVASCULAR: Regular rate and rhythm without murmurs, gallops, or rubs. RESPIRATORY: Clear to auscultation. Breath sounds equal bilaterally. No wheezes , rales, or rhonchi. GASTROINTESTINAL: Abdomen soft, non-tender, nondistended. No guarding. MUSCULOSKELETAL: Right knee with palpable effusion; left knee externally rotated with palpable effusion. Significant pain with palpation of effusion, significant pain with touch of bilateral feet and ankles. Generalized weakness. No calf tenderness. NEUROLOGICAL: Awake and alert. Normal speech. . Laboratory Laboratory Tests Test 08/22/17 18:34 White Blood Count 14.5 Red Blood Count 4.49 Hemoglobin 14.2 Hematocrit 41.2 Mean Corpuscular Volume 91.8 Mean Corpuscular Hemoglobin 31.6 Mean Corpuscular Hemoglobin Concent 34.5 Red Cell Distribution Width 14.0 Platelet Count 344 Mean Platelet Volume 8.6 Neutrophils (%) (Auto) 76.8 Lymphocytes (%) (Auto) 11.6 Monocytes (%) (Auto) 10.5 Eosinophils (%) (Auto) 0.3 Basophils (%) (Auto) 0.8 Neutrophils # (Auto) 11.1 Lymphocytes # (Auto) 1.7 Monocytes # (Auto) 1.5 Eosinophils # (Auto) 0.0 Basophils # (Auto) 0.1 CBC Comment DIFF FINAL Differential Comment Blood Urea Nitrogen 15 Creatinine 1.29 Random Glucose 95 Total Protein 9.1 Albumin 2.9 Calcium Level 9.5 Magnesium Level 1.8 Uric Acid 4.9 Alkaline Phosphatase 106 Aspartate Amino Transf (AST/SGOT) 24 Alanine Aminotransferase (ALT/SGPT) 22 Total Bilirubin 1.1 Sodium Level 133 Potassium Level 3.1 Chloride Level 95 Carbon Dioxide Level 30.3 Anion Gap 8 Estimat Glomerular Filtration Rate 69 B-Type Natriuretic Peptide 27 Result Diagram: 08/22/17 1834 08/22/17 1834 Imaging Last Impressions Knee X-Ray 08/22/17 0000 Signed Impressions: Service Date/Time: Tuesday, August 22, 2017 21:07 - CONCLUSION: Findings characteristic of a moderately large knee effusion. No fracture seen. Degenerative changes with chondrocalcinosis menisci. Ambrocio Crocker MD Caprini VTE Risk Assessment Caprini VTE Risk Assessment: Mod/High Risk (score >= 2) Caprini Risk Assessment Model Point Value = 1 Point Value = 2 Point Value = 3 Point Value = 5 Age 41-60 Minor surgery BMI > 25 kg/m2 Swollen legs Varicose veins or History of unexplained or recurrent spontaneous Oral contraceptives or hormone replacement Sepsis (< 1 month) Serious lung disease, including pneumonia (< 1 month) Abnormal pulmonary function Acute myocardial infarction Congestive heart failure (< 1 month) History of inflammatory bowel disease Medical patient at bed rest Age 61-74 Arthroscopic surgery Major open surgery (> 45 min) Laparoscopic surgery (> 45 min) Malignancy Confined to bed (> 72 hours) Immobilizing plaster cast Central venous access Age >= 75 History of VTE Family history of VTE Factor V Leiden Prothrombin [id number] Lupus anticoagulant Anticardiolipin antibodies Elevated serum homocysteine Heparin-induced thrombocytopenia Other congenital or acquired thrombophilia Stroke (< 1 month) Elective arthroplasty Hip, pelvis, or leg fracture Acute spinal cord injury (< 1 month) Prophylaxis Regimen Total Risk Factor Score Risk Level Prophylaxis Regimen 0-1 Low Early ambulation 2 Moderate Order ONE of the following: *Sequential Compression Device (SCD) *Heparin 5000 units SQ BID 3-4 Higher Order ONE of the following medications: *Heparin 5000 units SQ TID *Enoxaparin/Lovenox 40 mg SQ daily (WT < 150 kg, CrCl > 30 mL/min) *Enoxaparin/Lovenox 30 mg SQ daily (WT < 150 kg, CrCl > 10-29 mL/min) *Enoxaparin/Lovenox 30 mg SQ BID (WT < 150 kg, CrCl > 30 mL/min) AND/OR *Sequential Compression Device (SCD) 5 or more Highest Order ONE of the following medications: *Heparin 5000 units SQ TID (Preferred with Epidurals) *Enoxaparin/Lovenox 40 mg SQ daily (WT < 150 kg, CrCl > 30 mL/min) *Enoxaparin/Lovenox 30 mg SQ daily (WT < 150 kg, CrCl > 10-29 mL/min) *Enoxaparin/Lovenox 30 mg SQ BID (WT < 150 kg, CrCl > 30 mL/min) AND *Sequential Compression Device (SCD) Assessment and Plan Problem List: (1) Inability to ambulate due to multiple joints ICD Code: R26.2 - Difficulty in walking, not elsewhere classified (2) Knee effusion, left ICD Code: M25.462 - Effusion, left knee (3) Knee effusion, right ICD Code: M25.461 - Effusion, right knee Assessment and Plan Mr Castillo is a 62 year-old male with a history of osteoarthritis, rheumatoid arthritis, gout, atrial fibrillation on Eliquis, asthma, hypertension, spinal stenosis, and tobacco abuse who presented to the ED on 08/22/17 complaining of inability to ambulate and multiple arthralgias. Despite analgesics provided in the ED, the patient remained nonambulatory due to pain and bilateral knee xrays demonstrate knee effusions. The patient is admitted to [facility] for intractable pain with immobility. Bilateral knee effusions with intractable pain and inability to ambulate - consult orthopedic surgery - appreciate assistance - [place] 7.5/325 mg p.o. q4h PRN pain - consult physical therapy - received Decadron 8 mg IV in ED Leukocytosis - infection vs stress response - WBC 14.5 with neutrophilia; patient is afebrile - repeat CBC in a.m and follow results Hypokalemia - K+ 3.1 on admission - replaced potassium - recheck BMP in a.m. and monitor levels and replace as needed Atrial fibrillation CHF - continue Eliquis, metoprolol, lasix, potassium - monitor I and Os - continuous cardiac telemetry to monitor for cardiac arrhythmia Tobacco abuse - counselled regarding cessation DVT prophylaxis - continue home Eliquis . Discussed Condition With patient and Dr. Mishra . Tonya Simon Aug 23, 2017 01:25
[2017-08-23] MEDS ORDERED: ACETAMINOPHEN 325 MG TAB PO PRN (01:30)
[2017-08-23] MEDS ORDERED: NALOXONE HCL 0.4 MG/ML AMP IV PUSH PRN (01:30)
[2017-08-23] MEDS ORDERED: ONDANSETRON HCL 4 MG/2 ML VIAL IVP PRN (01:30)
[2017-08-23] MEDS: ACETAMINOPHEN/HYDROcodone 325 MG/7.5 MG TAB PO PRN ×2 (06:39→17:36)
--- NOTE | 2017-08-23 06:55 | PD.CONS ---
HPI Service Orthopedic Surgeons Consult Requested By MARIELLA Hernandez Reason for Consult Bilateral knee swelling with arthritis Primary Care Physician No Primary Care Physician Admission Diagnosis Intractable pain, arthralgias Diagnoses: (1) Knee effusion, left Diagnosis: Principal (2) Knee effusion, right Diagnosis: Principal (3) Inability to ambulate due to multiple joints Chief Complaint: Bilateral knee pain and difficulty with ambulation History of Present Illness This is a 62-year-old male. He has had a history of bilateral knee pain and swelling for many years. He lived in [place] until about a year ago. She received cortisone injection in both of his disease. He was told at one time that he had gout. He also is being treated for rheumatoid arthritis and receives methotrexate injections. The patient has had increasing swelling of both knees over period of several weeks. He states that he has had difficulty with ambulation because of bilateral knee pain. He takes chronic narcotics for chronic knee pain and other pain issues. He presented to the emergency room. The patient be admitted for observation. I have been asked to see him in consultation regarding the same Review of Systems Constitutional: DENIES: Diaphoretic episodes, Fatigue, Fever, Weight gain, Weight loss, Chills, Dizziness, Change in appetite, Night Sweats Endocrine: DENIES: Heat/cold intolerance, Polydipsia, Polyuria, Polyphagia Eyes: DENIES: Blurred vision, Diplopia, Eye inflammation, Eye pain, Vision loss , Photosensitivity, Double Vision Ears, nose, mouth, throat: DENIES: Tinnitus, Hearing loss, Vertigo, Nasal discharge, Oral lesions, Throat pain, Hoarseness, Ear Pain, Running Nose, Epistaxis, Sinus Pain, Toothache, Odynophagia Respiratory: DENIES: Apneas, Cough, Snoring, Wheezing, Hemoptysis, Sputum production, Shortness of breath Cardiovascular: DENIES: Chest pain, Palpitations, Syncope, Dyspnea on Exertion , PND, Lower Extremity Edema, Orthopnea, Claudication Gastrointestinal: DENIES: Abdominal pain, Black stools, Bloody stools, Constipation, Diarrhea, Nausea, Vomiting, Difficulty Swallowing, Anorexia Genitourinary: DENIES: Sexual dysfunction, Urinary frequency, Urinary incontinence, Urgency, Hematuria, Dysuria, Nocturia, Penile Discharge, Testicular Pain, Testicular Swelling Musculoskeletal: COMPLAINS OF: Joint pain, Muscle aches, Stiffness, Joint Swelling, Back pain Integumentary: DENIES: Abnormal pigmentation, Nail changes, Pruritus, Rash Hematologic/lymphatic: DENIES: Bruising, Lymphadenopathy Immunologic/allergic: DENIES: Eczema, Urticaria Neurologic: COMPLAINS OF: Abnormal gait, DENIES: Headache, Localized weakness, Paresthesias, Seizures, Speech Problems, Tremor, Poor Balance Psychiatric: DENIES: Anxiety, Confusion, Mood changes, Depression, Hallucinations, Agitation, Suicidal Ideation, Homicidal Ideation, Delusions Past Family Social History Past Medical History osteoarthritis, rheumatoid arthritis, gout, atrial fibrillation on Eliquis, asthma, hypertension, spinal stenosis, and tobacco abuse . Past Surgical History back surgeries for spinal stenosis x 2015 was most recent Bilateral knee arthroscopies . Allergies: Coded Allergies: No Known Allergies (Unverified Allergy, Unknown, 08/13/17) Active Ordered Medications Current Medications Medications (Trade) Dose Ordered Sig/[place] Route Start Time Stop Time Status Last Admin (NS Flush) 2 ml UNSCH PRN IV FLUSH 08/23/17 01:30 (NS Flush) 2 ml BID IV FLUSH 08/23/17 09:00 (Tylenol) 650 mg Q4H PRN PO 08/23/17 01:30 (Zofran Inj) 4 mg Q6H PRN IVP 08/23/17 01:30 (Narcan Inj) 0.4 mg UNSCH PRN IV PUSH 08/23/17 01:30 ([place] 7.5-325 Mg) 1 tab Q4H PRN PO 08/23/17 01:30 08/23/17 06:39 (Norvasc) 5 mg DAILY PO 08/23/17 09:00 (Eliquis) 5 mg BID PO 08/23/17 09:00 (Lasix) 20 mg DAILY PO 08/23/17 09:00 (Lopressor) 75 mg Q12HR PO 08/23/17 09:00 (KCl) 10 meq DAILY PO 08/23/17 09:00 Reported Meds & Active Scripts Active Potassium Chloride ER (Potassium Chloride) 10 Meq Cap 10 Meq PO DAILY Lasix (Furosemide) 20 Mg Tab 20 Mg PO DAILY Lopressor (Metoprolol Tartrate) 50 Mg Tab 75 Mg PO Q12HR Eliquis (Apixaban) 5 Mg Tab 5 Mg PO BID Reported Amlodipine (Amlodipine Besylate) 5 Mg Tab 5 Mg PO DAILY Folic Acid 1 Mg Tablet 1 Mg PO DAILY Methotrexate 2.5 Mg Tab 20 Mg PO Q7D Saturdays Family History Mother with DM Father with Alzheimer's . Social History Tobacco: smokes 1/2 PPD for 15 years ETOH: drinks 1 - 2 drinks socially occasionally Illicit Drugs: denies . Physical Exam Vital Signs Vital Signs Date Time Temp Pulse Resp B/P (MAP) Pulse Ox O2 Delivery O2 Flow Rate FiO2 08/23/17 06:00 77 16 113/73 (86) 99 Room Air 08/23/17 05:00 77 16 111/70 (84) 99 Room Air 08/23/17 03:00 87 16 108/68 (81) 98 Room Air 08/23/17 02:00 59 16 108/65 (79) 98 Room Air 08/23/17 00:00 97 16 114/67 (83) 98 Room Air 08/22/17 23:00 72 16 141/72 (95) 97 Room Air 08/22/17 18:07 98.1 57 18 116/74 (88) 96 Physical Exam HEENT: Normocephalic atraumatic pupils equal round reactive. NECK: Supple. No abnormal masses. Full range of motion. CHEST: Clear to auscultation with no rales or rhonchi's or wheezes. HEART: Regular rate and rhythm. No murmurs. ABDOMEN: Soft, nontender, no masses. Normal active bowel sounds. GENITOURINARY: Deferred. MUSCULOSKELETAL: Bilateral knees are similar. Both have a mild effusion. Slightly greater on the left knee than the right knee. Range of motion limited to extension 0 flexion 45 or 50. Pain with range of motion. No warmth. No redness. No instability. Mild varus orientation. Dorsalis pedis 2+. Skin no skin changes. He tends to hold the left leg in an external rotated position but the knee isn't anatomic alignment other than mild varus. Laboratory Laboratory Tests Test 08/22/17 18:34 White Blood Count 14.5 Red Blood Count 4.49 Hemoglobin 14.2 Hematocrit 41.2 Mean Corpuscular Volume 91.8 Mean Corpuscular Hemoglobin 31.6 Mean Corpuscular Hemoglobin Concent 34.5 Red Cell Distribution Width 14.0 Platelet Count 344 Mean Platelet Volume 8.6 Neutrophils (%) (Auto) 76.8 Lymphocytes (%) (Auto) 11.6 Monocytes (%) (Auto) 10.5 Eosinophils (%) (Auto) 0.3 Basophils (%) (Auto) 0.8 Neutrophils # (Auto) 11.1 Lymphocytes # (Auto) 1.7 Monocytes # (Auto) 1.5 Eosinophils # (Auto) 0.0 Basophils # (Auto) 0.1 CBC Comment DIFF FINAL Differential Comment Blood Urea Nitrogen 15 Creatinine 1.29 Random Glucose 95 Total Protein 9.1 Albumin 2.9 Calcium Level 9.5 Magnesium Level 1.8 Uric Acid 4.9 Alkaline Phosphatase 106 Aspartate Amino Transf (AST/SGOT) 24 Alanine Aminotransferase (ALT/SGPT) 22 Total Bilirubin 1.1 Sodium Level 133 Potassium Level 3.1 Chloride Level 95 Carbon Dioxide Level 30.3 Anion Gap 8 Estimat Glomerular Filtration Rate 69 B-Type Natriuretic Peptide 27 Result Diagram: 08/22/17183308/22/17 183 Imaging Review of x-rays and review of the radiologist's interpretation shows evidence of calcification the meniscus of both knees. Some chronic changes are seen consistent with long-standing osteoarthritis. Mild inflammatory changes are noted. No fracture. No instability. Assessment & Plan Assessment and Plan History of rheumatoid arthritis. 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 Resist cortisone injection at this time. That should be avoided within 6 months prior to elective total joint replacement. The patient needs to get his social situation under control fit so that he becomes a candidate for joint replacement surgery. Continue with oral medications for control of pain and for anti-inflammation. The patient is on methotrexate. Consider NSAIDs for treatment of underlying degenerative changes in addition to inflammatory changes. This patient should be followed by rheumatology for more appropriate management of nonsurgical care of his underlying rheumatoid arthritis/crystalline arthropathy. Weightbearing as tolerated. Use of walker and or wheelchair as necessary. Follow-up in approximately 4 weeks in the office for reevaluation and further recommendations from an orthopedic surgical standpoint Andrei Gomez MD Aug 23, 2017 06:55
[2017-08-23] MEDS: APIXABAN 5 MG TABLET PO SCH ×2 (08:40→20:49)
[2017-08-23] MEDS: FUROSEMIDE 20 MG TAB PO SCH (08:41)
[2017-08-23] MEDS: amLODIPine BESYLATE 5 MG TAB PO SCH (08:41)
[2017-08-23] MEDS: POTASSIUM CHLORIDE 10 MEQ CAP PO SCH (08:41)
[2017-08-23] MEDS: METOPROLOL TARTRATE 25 MG TAB PO SCH ×2 (09:00→20:49)
[2017-08-23] MEDS: SODIUM CHLORIDE 0.9% FLUSH 10 ML FLUSH IV FLUSH SCH ×2 (10:44→20:50)
--- NOTE | 2017-08-23 12:59 | HHI.PR ---
Subjective Remarks Follow up for joint pain, knee effusions. The patient reports continued diffuse joint pain and swelling of bilateral knees. Denies fevers/chills. Denies any other medical complaints. He is requesting to speak with forensic social worker. He is from [place], now residing in [facility]. He was staying at a hotel prior to hospitalization. He follows with Dr. Ambrocio LEGGETT and also has established with a gas torch brazier. He reports compliance with his methotrexate and Eliquis. Objective Vitals Vital Signs Date Time Temp Pulse Resp B/P (MAP) Pulse Ox O2 Delivery O2 Flow Rate FiO2 08/23/17 06:00 77 16 113/73 (86) 99 Room Air 08/23/17 05:00 77 16 111/70 (84) 99 Room Air 08/23/17 03:00 87 16 108/68 (81) 98 Room Air 08/23/17 02:00 59 16 108/65 (79) 98 Room Air 08/23/17 00:00 97 16 114/67 (83) 98 Room Air 08/22/17 23:00 72 16 141/72 (95) 97 Room Air 08/22/17 18:07 98.1 57 18 116/74 (88) 96 Result Diagram: 08/22/17 1834 08/22/17 1834 Imaging Last Impressions Knee X-Ray 08/22/17 0000 Signed Impressions: Service Date/Time: Tuesday, August 22, 2017 21:07 - CONCLUSION: Findings characteristic of a moderately large knee effusion. No fracture seen. Degenerative changes with chondrocalcinosis menisci. Ambrocio Crocker MD Objective Remarks GENERAL: Well-nourished, well-developed middle aged male patient in [facility]. SKIN: Warm and dry. No rash. HEENT: Normocephalic. Atraumatic. Pupils equal and round. Mucous membranes pink and moist. CARDIOVASCULAR: Irregular rate and rhythm. S1, S2 noted. No murmur appreciated. RESPIRATORY: No accessory muscle use. Clear to auscultation. Breath sounds equal bilaterally. GASTROINTESTINAL: Abdomen soft, non-tender, nondistended. Normoactive bowel sounds x4. MUSCULOSKELETAL: No obvious deformities. Bilateral knees with effusions, tender to palpation, however no erythema/warmth. NEUROLOGICAL: Awake and alert. No obvious cranial nerve deficits. Motor grossly within normal limits. 5/5 muscle strength in bilateral upper and lower extremities. Normal speech. PSYCHIATRIC: Appropriate mood and affect; insight and judgment normal. Medications and IVs Current Medications Medications (Trade) Dose Ordered Sig/[place] Route Start Time Stop Time Status Last Admin (NS Flush) 2 ml UNSCH PRN IV FLUSH 08/23/17 01:30 (NS Flush) 2 ml BID IV FLUSH 08/23/17 09:00 08/23/17 10:44 (Tylenol) 650 mg Q4H PRN PO 08/23/17 01:30 (Zofran Inj) 4 mg Q6H PRN IVP 08/23/17 01:30 (Narcan Inj) 0.4 mg UNSCH PRN IV PUSH 08/23/17 01:30 ([place] 7.5-325 Mg) 1 tab Q4H PRN PO 08/23/17 01:30 08/23/17 06:39 (Norvasc) 5 mg DAILY PO 08/23/17 09:00 08/23/17 08:41 (Eliquis) 5 mg BID PO 08/23/17 09:00 08/23/17 08:40 (Lasix) 20 mg DAILY PO 08/23/17 09:00 08/23/17 08:41 (Lopressor) 75 mg Q12HR PO 08/23/17 09:00 (KCl) 10 meq DAILY PO 08/23/17 09:00 08/23/17 08:41 A/P Problem List: (1) Knee effusion, left ICD Code: M25.462 - Effusion, left knee (2) Knee effusion, right ICD Code: M25.461 - Effusion, right knee (3) Inability to ambulate due to multiple joints ICD Code: R26.2 - Difficulty in walking, not elsewhere classified Assessment and Plan 62-year-old male with a history of osteoarthritis, rheumatoid arthritis, gout, atrial fibrillation on Eliquis, asthma, hypertension, spinal stenosis, and tobacco abuse who presented to the ED on 08/22/17 complaining of inability to ambulate and multiple arthralgias. Despite analgesics provided in the ED, the patient remained nonambulatory due to pain and bilateral knee xrays demonstrate knee effusions. The patient is admitted to [facility] for intractable pain with immobility. Bilateral knee effusions with intractable pain and inability to ambulate - consult orthopedic surgery - appreciate assistance - Continue [place] 7.5/325 mg p.o. q4h PRN pain - consult physical therapy, recommends walker vs wheelchair - given Decadron 8 mg IV x1 in ED - continue daily physical therapy - will give IV Toradol 15mg q6h [id number] - check ESR/CRP - case management to assist with discharge planning Leukocytosis: suspect stress response, no signs of infection. WBC 14.5 with neutrophilia; patient is afebrile - repeat CBC, however patient did receive steroids and WBC may increase Hypokalemia: K+ 3.1 on admission - replaced potassium - recheck BMP in a.m. and monitor levels and replace as needed Atrial fibrillation, CHF: chronic, stable - continue Eliquis, metoprolol, lasix, potassium - monitor I and Os - continuous cardiac telemetry to monitor for cardiac arrhythmia Tobacco abuse - counselled regarding cessation DVT prophylaxis- on Eliquis Discharge Planning Hopefully discharge tomorrow. Case management to assist with discharge planning. Nizta Carvalho PA-C Aug 23, 2017 12:59 pm
[2017-08-23] MEDS: KETOROLAC TROMETHAMINE 30 MG/ML (IVP) VIAL IV PUSH SCH (17:37)
[2017-08-24] VITALS (8 sets, daily range): BP systolic 106–119; BP diastolic 66–73; PULSE 60–75; RESP 18–20; TEMP 97.4–98.4; O2SAT 94–99
[2017-08-24] MEDS: KETOROLAC TROMETHAMINE 30 MG/ML (IVP) VIAL IV PUSH SCH ×4 (00:33→18:13)
[2017-08-24] MEDS: ACETAMINOPHEN/HYDROcodone 325 MG/7.5 MG TAB PO PRN ×2 (01:52→21:49)
[2017-08-24] MEDS: SODIUM CHLORIDE 0.9% FLUSH 10 ML FLUSH IV FLUSH PRN (06:10)
[2017-08-24 08:11] LABS: AUTOMATED NEUTROPHIL # 17.2 TH/MM3 (1.8-7.7); BASOPHIL % 0.2 % (0.0-2.0); EOSINOPHIL % 0.2 % (0.0-4.0); HEMATOCRIT 34.8 % (39.0-51.0); HEMOGLOBIN 12.1 GM/DL (13.0-17.0); LYMPH % 7.9 % (9.0-44.0); LYMPHOCYTE # 1.6 TH/MM3 (1.0-4.8); MEAN CELL VOLUME 90.8 FL (80.0-100.0); MEAN CORPUSCULAR HEMOGLOBIN 31.5 PG (27.0-34.0); MEAN CORPUSCULAR HGB CONC 34.7 % (32.0-36.0); MEAN PLATELET VOLUME 8.6 FL (7.0-11.0); MONO % 5.5 % (0.0-8.0); MONOCYTE # 1.1 TH/MM3 (0-0.9); NEUT % 86.2 % (16.0-70.0); PLATELET COUNT 357 TH/MM3 (150-450); RED BLOOD COUNT 3.83 MIL/MM3 (4.50-5.90); RED CELL DISTRIBUTION WIDTH 14.2 % (11.6-17.2); WHITE BLOOD COUNT 19.9 TH/MM3 (4.0-11.0)
[2017-08-24 08:21] LABS: WESTERGREN SEDIMENTATION RATE 90 mm/hr (0-20)
--- NOTE | 2017-08-24 08:22 | HHI.PR ---
Subjective Remarks Follow-up polyarthralgias and inability to walk. Improving joint pains but still having difficulty ambulating. Discussed with nursing and case management Objective Vitals Vital Signs Date Time Temp Pulse Resp B/P (MAP) Pulse Ox O2 Delivery O2 Flow Rate FiO2 08/24/17 08:15 97.4 60 20 112/71 (85) 97 08/24/17 04:10 74 08/24/17 03:19 98.0 62 18 119/73 (88) 97 08/24/17 02:52 15 08/24/17 01:33 75 08/24/17 01:33 15 08/24/17 01:24 98.4 61 18 113/66 (82) 99 08/23/17 20:23 97.8 85 18 126/74 (91) 99 08/23/17 17:20 97.6 61 18 130/69 (89) 97 08/23/17 13:34 98.6 65 18 106/63 (77) 98 Result Diagram: 08/24/17 0625 08/22/17 1834 Imaging Last Impressions Knee X-Ray 08/22/17 0000 Signed Impressions: Service Date/Time: Tuesday, August 22, 2017 21:07 - CONCLUSION: Findings characteristic of a moderately large knee effusion. No fracture seen. Degenerative changes with chondrocalcinosis menisci. Ambrocio Crocker MD Objective Remarks GENERAL: Well-nourished, well-developed middle aged male patient in [facility]. SKIN: Warm and dry. No rash. CARDIOVASCULAR: Irregular rate and rhythm. S1, S2 noted. No murmur appreciated. RESPIRATORY: No accessory muscle use. Clear to auscultation. Breath sounds equal bilaterally. GASTROINTESTINAL: Abdomen soft, non-tender, nondistended. Normoactive bowel sounds x4. MUSCULOSKELETAL: No obvious deformities. Bilateral knees with effusions, tender to palpation, however no erythema/warmth. NEUROLOGICAL: Awake and alert. No obvious cranial nerve deficits. Motor grossly within normal limits. 5/5 muscle strength in bilateral upper and lower extremities. Normal speech. PSYCHIATRIC: Appropriate mood and affect; insight and judgment normal. Procedures none A/P Problem List: (1) Knee effusion, left ICD Code: M25.462 - Effusion, left knee (2) Knee effusion, right ICD Code: M25.461 - Effusion, right knee (3) Inability to ambulate due to multiple joints ICD Code: R26.2 - Difficulty in walking, not elsewhere classified Assessment and Plan 62-year-old male with a history of osteoarthritis, rheumatoid arthritis, gout, atrial fibrillation on Eliquis, asthma, hypertension, spinal stenosis, and tobacco abuse who presented to the ED on 08/22/17 complaining of inability to ambulate and multiple arthralgias. Despite analgesics provided in the ED, the patient remained nonambulatory due to pain and bilateral knee xrays demonstrate knee effusions. The patient is admitted to [facility] for intractable pain with immobility. Bilateral knee effusions with intractable pain and inability to ambulate. Improving pain. - consult orthopedic surgery - appreciate assistance - Continue [place] 7.5/325 mg p.o. q4h PRN pain - consult physical therapy, recommends walker vs wheelchair - given Decadron 8 mg IV x1 in ED - continue daily physical therapy - will give IV Toradol 15mg q6h [id number] - ESR 90 and CRP 17 - case management to assist with discharge planning Leukocytosis: suspect stress response, no signs of infection. WBC 14.5 with neutrophilia; patient is afebrile - repeat CBC, however patient did receive steroids and WBC may increase Hypokalemia: K+ 3.1 on admission - replaced potassium - recheck BMP and monitor levels and replace as needed Atrial fibrillation, CHF: chronic, stable - continue Eliquis, metoprolol, lasix, potassium - monitor I and Os - continuous cardiac telemetry to monitor for cardiac arrhythmia Tobacco abuse - counselled regarding cessation DVT prophylaxis- on Eliquis Discharge Planning Discharge patient to home Condition on discharge: Improved Regular Diet as tolerated Ad Marce activity Rx written: Potassium Follow-up with primary care physician cardiology and orthopedic surgery Jef Correia MD Aug 24, 2017 08:22
[2017-08-24] MEDS: amLODIPine BESYLATE 5 MG TAB PO SCH (08:32)
[2017-08-24] MEDS: APIXABAN 5 MG TABLET PO SCH ×2 (08:32→20:41)
[2017-08-24] MEDS: FUROSEMIDE 20 MG TAB PO SCH (08:33)
[2017-08-24] MEDS: POTASSIUM CHLORIDE 10 MEQ CAP PO SCH (08:33)
[2017-08-24] MEDS: SODIUM CHLORIDE 0.9% FLUSH 10 ML FLUSH IV FLUSH SCH ×2 (08:33→20:43)
[2017-08-24] MEDS: METOPROLOL TARTRATE 25 MG TAB PO SCH ×2 (08:34→20:43)
[2017-08-24 08:42] LABS: BICARBONATE 25.5 MEQ/L (21.0-32.0); CALCIUM 9.1 MG/DL (8.5-10.1); CREATININE 0.98 MG/DL (0.60-1.30)
[2017-08-24] MEDS ORDERED: WHEEMIS3 (10:34)
[2017-08-24] MEDS ORDERED: POTA10CA PO (15:18)
[2017-08-24] MEDS ORDERED: POTASSIUM CHLORIDE 20 MEQ CONTROLLED RELEASE TAB PO ONE (15:30)
[2017-08-25] VITALS (7 sets, daily range): BP systolic 113–122; BP diastolic 69–77; PULSE 58–71; RESP 18; TEMP 96.3–98.1; O2SAT 93–97
--- NOTE | 2017-08-25 07:04 | HHI.PR ---
Subjective Remarks Follow-up arthralgias and inability to walk. Improving pain still having difficulty ambulating. Discussed with case management, awaiting insurance approval for wheelchair. Consulted YONIS and SNF to evaluate patient, patient prefers to be discharged to SNF Objective Vitals Vital Signs Date Time Temp Pulse Resp B/P (MAP) Pulse Ox O2 Delivery O2 Flow Rate FiO2 08/25/17 03:33 97.9 58 18 120/76 (91) 97 08/25/17 00:07 97.9 61 18 115/69 (84) 95 08/24/17 20:32 98.0 62 18 119/71 (87) 94 08/24/17 16:30 97.6 70 18 118/73 (88) 95 08/24/17 12:14 97.4 73 18 106/67 (80) 96 08/24/17 08:15 97.4 60 20 112/71 (85) 97 I/O 08/24/17 08/24/17 08/24/17 08/25/17 08/25/17 08/25/17 07:00 15:00 23:00 07:00 15:00 23:00 Intake Total 240 ml Output Total 95 ml Balance 145 ml Intake Oral 240 ml Output Urine Total 95 ml # Voids 3 Result Diagram: 08/24/17 0625 08/24/17 0625 Imaging Last Impressions Knee X-Ray 08/22/17 0000 Signed Impressions: Service Date/Time: Tuesday, August 22, 2017 21:07 - CONCLUSION: Findings characteristic of a moderately large knee effusion. No fracture seen. Degenerative changes with chondrocalcinosis menisci. Ambrocio Crocker MD Objective Remarks GENERAL: Well-nourished, well-developed middle aged male patient in [facility]. SKIN: Warm and dry. No rash. CARDIOVASCULAR: Irregular rate and rhythm. S1, S2 noted. No murmur appreciated. RESPIRATORY: No accessory muscle use. Clear to auscultation. Breath sounds equal bilaterally. GASTROINTESTINAL: Abdomen soft, non-tender, nondistended. Normoactive bowel sounds x4. MUSCULOSKELETAL: No obvious deformities. Bilateral knees with effusions, tender to palpation, however no erythema/warmth. NEUROLOGICAL: Awake and alert. No obvious cranial nerve deficits. Motor grossly within normal limits. 5/5 muscle strength in bilateral upper and lower extremities. Normal speech. PSYCHIATRIC: Appropriate mood and affect; insight and judgment normal. Procedures none A/P Problem List: (1) Knee effusion, left ICD Code: M25.462 - Effusion, left knee (2) Knee effusion, right ICD Code: M25.461 - Effusion, right knee (3) Inability to ambulate due to multiple joints ICD Code: R26.2 - Difficulty in walking, not elsewhere classified Assessment and Plan 62-year-old male with a history of osteoarthritis, rheumatoid arthritis, gout, atrial fibrillation on Eliquis, asthma, hypertension, spinal stenosis, and tobacco abuse who presented to the ED on 08/22/17 complaining of inability to ambulate and multiple arthralgias. Despite analgesics provided in the ED, the patient remained nonambulatory due to pain and bilateral knee xrays demonstrate knee effusions. The patient is admitted to [facility] for intractable pain with immobility. Bilateral knee effusions with intractable pain and inability to ambulate. Improving pain. - consulted orthopedic surgery - appreciate assistance - Continue [place] 7.5/325 mg p.o. q4h PRN pain - consult physical therapy, recommends walker vs wheelchair - given Decadron 8 mg IV x1 in ED - continue daily physical therapy - will give IV Toradol 15mg q6h [id number] - ESR 90 and CRP 17 - case management to assist with discharge planning Leukocytosis: suspect stress response, no signs of infection. WBC 14.5 with neutrophilia; patient is afebrile - repeat CBC, however patient did receive steroids and WBC may increase Hypokalemia: K+ 3.1 on admission - replaced potassium - recheck BMP and monitor levels and replace as needed Atrial fibrillation, CHF: chronic, stable - continue Eliquis, metoprolol, lasix, potassium - monitor I and Os - continuous cardiac telemetry to monitor for cardiac arrhythmia Tobacco abuse - counselled regarding cessation DVT prophylaxis- on Eliquis Discharge Planning Discharge patient to home when DME arranged versus [facility] versus SNF Condition on discharge: Improved Regular Diet as tolerated Ad Marce activity Rx written: Potassium Follow-up with primary care physician cardiology and orthopedic surgery Jef Correia MD Aug 25, 2017 07:04
[2017-08-25] MEDS ORDERED: METHOTREXATE 2.5 MG TAB PO SCH (09:00)
[2017-08-25] MEDS: POTASSIUM CHLORIDE 10 MEQ CAP PO SCH (09:51)
[2017-08-25] MEDS: FUROSEMIDE 20 MG TAB PO SCH (09:51)
[2017-08-25] MEDS: SODIUM CHLORIDE 0.9% FLUSH 10 ML FLUSH IV FLUSH SCH (09:51)
[2017-08-25] MEDS: METOPROLOL TARTRATE 25 MG TAB PO SCH ×2 (09:52→21:00)
[2017-08-25] MEDS: amLODIPine BESYLATE 5 MG TAB PO SCH (09:52)
[2017-08-25] MEDS: APIXABAN 5 MG TABLET PO SCH (09:52)
[2017-08-25] MEDS: ACETAMINOPHEN/HYDROcodone 325 MG/7.5 MG TAB PO PRN ×3 (10:02→17:56)
[2017-08-25] MEDS: KETOROLAC TROMETHAMINE 30 MG/ML (IVP) VIAL IV PUSH SCH ×2 (12:24→17:57)
[2017-08-26] VITALS (7 sets, daily range): BP systolic 101–129; BP diastolic 55–84; PULSE 60–75; RESP 16–21; TEMP 95.9–98.2; O2SAT 95–99
[2017-08-26] MEDS: KETOROLAC TROMETHAMINE 30 MG/ML (IVP) VIAL IV PUSH SCH ×4 (00:40→16:37)
[2017-08-26] MEDS: APIXABAN 5 MG TABLET PO SCH ×3 (00:41→22:54)
[2017-08-26] MEDS: SODIUM CHLORIDE 0.9% FLUSH 10 ML FLUSH IV FLUSH SCH ×3 (00:41→22:55)
[2017-08-26] MEDS: ACETAMINOPHEN/HYDROcodone 325 MG/7.5 MG TAB PO PRN ×4 (00:42→22:54)
--- NOTE | 2017-08-26 06:44 | HHI.PR ---
Subjective Remarks Follow-up polyarthralgias and inability to walk. Improving joint pains but still having difficulty ambulating. Awaiting SNF evaluation discussed with nursing Objective Vitals Vital Signs Date Time Temp Pulse Resp B/P (MAP) Pulse Ox O2 Delivery O2 Flow Rate FiO2 08/26/17 05:16 95.9 65 16 118/80 (93) 95 08/26/17 01:19 96.9 60 18 103/55 (71) 99 08/25/17 20:25 96.3 71 18 122/72 (89) 93 08/25/17 15:09 98.1 69 18 113/77 (89) 96 08/25/17 11:52 97.0 61 18 115/72 (86) 96 08/25/17 08:15 64 08/25/17 08:06 97.6 60 18 115/71 (86) 96 Result Diagram: 08/24/17 0625 08/24/17 0625 Imaging Last Impressions Knee X-Ray 08/22/17 0000 Signed Impressions: Service Date/Time: Tuesday, August 22, 2017 21:07 - CONCLUSION: Findings characteristic of a moderately large knee effusion. No fracture seen. Degenerative changes with chondrocalcinosis menisci. Ambrocio Crocker MD Objective Remarks GENERAL: Well-nourished, well-developed middle aged male patient in [facility]. SKIN: Warm and dry. No rash. CARDIOVASCULAR: Irregular rate and rhythm. S1, S2 noted. No murmur appreciated. RESPIRATORY: No accessory muscle use. Clear to auscultation. Breath sounds equal bilaterally. GASTROINTESTINAL: Abdomen soft, non-tender, nondistended. Normoactive bowel sounds x4. MUSCULOSKELETAL: No obvious deformities. Bilateral knees with effusions, tender to palpation, however no erythema/warmth. NEUROLOGICAL: Awake and alert. No obvious cranial nerve deficits. Motor grossly within normal limits. 5/5 muscle strength in bilateral upper and lower extremities. Normal speech. PSYCHIATRIC: Appropriate mood and affect; insight and judgment normal. Procedures none A/P Problem List: (1) Knee effusion, left ICD Code: M25.462 - Effusion, left knee (2) Knee effusion, right ICD Code: M25.461 - Effusion, right knee (3) Inability to ambulate due to multiple joints ICD Code: R26.2 - Difficulty in walking, not elsewhere classified Assessment and Plan 62-year-old male with a history of osteoarthritis, rheumatoid arthritis, gout, atrial fibrillation on Eliquis, asthma, hypertension, spinal stenosis, and tobacco abuse who presented to the ED on 08/22/17 complaining of inability to ambulate and multiple arthralgias. Despite analgesics provided in the ED, the patient remained nonambulatory due to pain and bilateral knee xrays demonstrate knee effusions. The patient is admitted to [facility] for intractable pain with immobility. Bilateral knee effusions with intractable pain and inability to ambulate. Improving pain. - consulted orthopedic surgery - appreciate assistance - Continue [place] 7.5/325 mg p.o. q4h PRN pain - consult physical therapy, recommends walker vs wheelchair - given Decadron 8 mg IV x1 in ED - continue daily physical therapy - will give IV Toradol 15mg q6h x5 days - ESR 90 and CRP 17 - case management to assist with discharge planning referred to SNF and [facility] Leukocytosis: suspect stress response, no signs of infection. WBC 14.5 with neutrophilia; patient is afebrile - repeat CBC, however patient did receive steroids and WBC may increase Hypokalemia: K+ 3.1 on admission - replaced potassium - recheck BMP and monitor levels and replace as needed Atrial fibrillation, CHF: chronic, stable - continue Eliquis, metoprolol, lasix, potassium - monitor I and Os - continuous cardiac telemetry to monitor for cardiac arrhythmia Tobacco abuse - counselled regarding cessation DVT prophylaxis- on Eliquis Discharge Planning Discharge patient to home when DME arranged versus [facility] versus SNF Condition on discharge: Improved Regular Diet as tolerated Ad Marce activity Rx written: Potassium Follow-up with primary care physician cardiology and orthopedic surgery Jef Correia MD Aug 26, 2017 06:44
[2017-08-26] MEDS: METOPROLOL TARTRATE 25 MG TAB PO SCH ×2 (08:32→21:00)
[2017-08-26] MEDS: FOLIC ACID 1 MG TAB PO SCH (08:33)
[2017-08-26] MEDS: POTASSIUM CHLORIDE 10 MEQ CAP PO SCH (08:33)
[2017-08-26] MEDS: amLODIPine BESYLATE 5 MG TAB PO SCH (08:34)
[2017-08-26] MEDS: FUROSEMIDE 20 MG TAB PO SCH (08:34)
[2017-08-26] MEDS ORDERED: HYDR-3583 PO (16:42)
[2017-08-27] VITALS (11 sets, daily range): BP systolic 114–137; BP diastolic 68–91; PULSE 52–70; RESP 16–24; TEMP 97.4–98.4; O2SAT 95–98
[2017-08-27] MEDS: KETOROLAC TROMETHAMINE 30 MG/ML (IVP) VIAL IV PUSH SCH ×5 (00:50→23:08)
[2017-08-27] MEDS: POTASSIUM CHLORIDE 10 MEQ CAP PO SCH (09:45)
[2017-08-27] MEDS: SODIUM CHLORIDE 0.9% FLUSH 10 ML FLUSH IV FLUSH SCH ×2 (09:45→22:10)
[2017-08-27] MEDS: FUROSEMIDE 20 MG TAB PO SCH (09:46)
[2017-08-27] MEDS: METOPROLOL TARTRATE 25 MG TAB PO SCH ×2 (09:46→22:09)
[2017-08-27] MEDS: amLODIPine BESYLATE 5 MG TAB PO SCH (09:46)
[2017-08-27] MEDS: APIXABAN 5 MG TABLET PO SCH ×2 (09:46→22:09)
[2017-08-27] MEDS: FOLIC ACID 1 MG TAB PO SCH (09:58)
[2017-08-27] MEDS: ACETAMINOPHEN/HYDROcodone 325 MG/7.5 MG TAB PO PRN ×3 (09:59→23:08)
[2017-08-27] MEDS: SODIUM CHLORIDE 0.9% FLUSH 10 ML FLUSH IV FLUSH PRN (13:43)
--- NOTE | 2017-08-27 16:58 | HHI.PR ---
Subjective Remarks In bed appears in nad Says he has pain in his knees, swelling improved. Says she has no sob or chest pain. No n/v/d/c. Denies fevers or chills. Objective Vitals Vital Signs Date Time Temp Pulse Resp B/P (MAP) Pulse Ox O2 Delivery O2 Flow Rate FiO2 08/27/17 16:46 98.1 52 16 120/77 (91) 96 08/27/17 12:20 98.0 62 16 122/68 (86) 97 08/27/17 08:21 97.7 67 24 137/91 (106) 97 08/27/17 03:26 98.4 62 18 126/73 (90) 96 08/27/17 00:07 98.0 65 18 114/77 (89) 95 08/26/17 21:22 97.5 67 18 129/69 (89) 96 I/O 08/26/17 08/26/17 08/26/17 08/27/17 08/27/17 08/27/17 07:00 15:00 23:00 07:00 15:00 23:00 Output Total 200 ml 600 ml Balance -200 ml -600 ml Output Urine Total 200 ml 600 ml # Voids 1 # Bowel Movements 1 Result Diagram: 08/24/17 0625 08/24/17 0625 Imaging Last Impressions Knee X-Ray 08/22/17 0000 Signed Impressions: Service Date/Time: Tuesday, August 22, 2017 21:07 - CONCLUSION: Findings characteristic of a moderately large knee effusion. No fracture seen. Degenerative changes with chondrocalcinosis menisci. Ambrocio Crocker MD Objective Remarks GENERAL: Well-nourished, well-developed middle aged male patient in [facility]. SKIN: Warm and dry. No rash. CARDIOVASCULAR: Irregular rate and rhythm. S1, S2 noted. No murmur appreciated. RESPIRATORY: No accessory muscle use. Clear to auscultation. Breath sounds equal bilaterally. GASTROINTESTINAL: Abdomen soft, non-tender, nondistended. Normoactive bowel sounds x4. MUSCULOSKELETAL: No obvious deformities. Bilateral knees with effusions, tender to palpation, however no erythema/warmth. NEUROLOGICAL: Awake and alert. No obvious cranial nerve deficits. Motor grossly within normal limits. 5/5 muscle strength in bilateral upper and lower extremities. Normal speech. PSYCHIATRIC: Appropriate mood and affect; insight and judgment normal. Procedures none A/P Problem List: (1) Knee effusion, left ICD Code: M25.462 - Effusion, left knee (2) Knee effusion, right ICD Code: M25.461 - Effusion, right knee (3) Inability to ambulate due to multiple joints ICD Code: R26.2 - Difficulty in walking, not elsewhere classified Assessment and Plan 62-year-old male with a history of osteoarthritis, rheumatoid arthritis, gout, atrial fibrillation on Eliquis, asthma, hypertension, spinal stenosis, and tobacco abuse who presented to the ED on 08/22/17 complaining of inability to ambulate and multiple arthralgias. Despite analgesics provided in the ED, the patient remained nonambulatory due to pain and bilateral knee xrays demonstrate knee effusions. The patient is admitted to [facility] for intractable pain with immobility. Bilateral knee effusions with intractable pain and inability to ambulate. Improving pain. - consulted orthopedic surgery - appreciate assistance - Continue [place] 7.5/325 mg p.o. q4h PRN pain - consult physical therapy, recommends walker vs wheelchair - given Decadron 8 mg IV x1 in ED - continue daily physical therapy - will give IV Toradol 15mg q6h x5 days - ESR 90 and CRP 17 - case management to assist with discharge planning referred to SNF and [facility] Leukocytosis: suspect stress response, no signs of infection. WBC 14.5 with neutrophilia; patient is afebrile - repeat CBC, however patient did receive steroids and WBC may increase Hypokalemia: K+ 3.1 on admission - replaced potassium - recheck BMP and monitor levels and replace as needed Atrial fibrillation, CHF: chronic, stable - continue Eliquis, metoprolol, lasix, potassium - monitor I and Os - continuous cardiac telemetry to monitor for cardiac arrhythmia Tobacco abuse - counselled regarding cessation DVT prophylaxis- on Eliquis Discussed with the patient, nurse. Discharge Planning Discharge patient to home when DME arranged versus [facility] versus SNF Condition on discharge: Improved Regular Diet as tolerated Ad Marce activity Rx written: Potassium Follow-up with primary care physician cardiology and orthopedic surgery Lisa Kevin MD Aug 27, 2017 16:58
--- NOTE | 2017-08-27 16:59 | HHI.DS ---
Discharge Summary Admission Date Aug 22, 2017 at 23:55 Discharge Date: Aug 27, 2017 Admitting Diagnosis Intractable pain, arthralgias (1) Knee effusion, left ICD Code: M25.462 - Effusion, left knee (2) Knee effusion, right ICD Code: M25.461 - Effusion, right knee (3) Inability to ambulate due to multiple joints ICD Code: R26.2 - Difficulty in walking, not elsewhere classified Procedures none Brief History - From Admission Mr Castillo is a 62 year-old male with a history of osteoarthritis, rheumatoid arthritis, gout, atrial fibrillation on Eliquis, asthma, hypertension, spinal stenosis, and tobacco abuse who presented to the ED on 08/22/17 complaining of inability to ambulate and multiple arthralgias. Despite analgesics provided in the ED, the patient remained nonambulatory due to pain and bilateral knee xrays demonstrate knee effusions. The patient is admitted to [facility] for intractable pain with immobility. The patient is seen in the ER. He is complaining of severe bilateral knee pain , ankle pain, and foot pain. He states his symptoms have been present for a couple of days but when it became so severe that he could not longer ambulate, he decided to seek emergency medical treatment. He reports aching and sharp pain rated 10/10. He does appear to be in obvious pain when attempting to move on the ED stretcher. He has palpable and tender bilateral knee effusions. His states that his left leg is rotating externally as a result of his knee pain. He is tender to knees, ankles, and foot palpation. Denies fevers, nausea, vomiting, diarrhea, chest pain, shortness of breath. Reports chills a couple of days ago and none since until feeling cold at the hospital. Afebrile here. . CBC/BMP: 08/24/17 0625 08/24/17 0625 Imaging Last Impressions Knee X-Ray 08/22/17 0000 Signed Impressions: Service Date/Time: Tuesday, August 22, 2017 21:07 - CONCLUSION: Findings characteristic of a moderately large knee effusion. No fracture seen. Degenerative changes with chondrocalcinosis menisci. Ambrocio Crocker MD PE at Discharge GENERAL: Well-nourished, well-developed middle aged male patient in [facility]. SKIN: Warm and dry. No rash. CARDIOVASCULAR: Irregular rate and rhythm. S1, S2 noted. No murmur appreciated. RESPIRATORY: No accessory muscle use. Clear to auscultation. Breath sounds equal bilaterally. GASTROINTESTINAL: Abdomen soft, non-tender, nondistended. Normoactive bowel sounds x4. MUSCULOSKELETAL: No obvious deformities. Bilateral knees with effusions, tender to palpation, however no erythema/warmth. NEUROLOGICAL: Awake and alert. No obvious cranial nerve deficits. Motor grossly within normal limits. 5/5 muscle strength in bilateral upper and lower extremities. Normal speech. PSYCHIATRIC: Appropriate mood and affect; insight and judgment normal. Hospital Course 62-year-old male with a history of osteoarthritis, rheumatoid arthritis, gout, atrial fibrillation on Eliquis, asthma, hypertension, spinal stenosis, and tobacco abuse who presented to the ED on 08/22/17 complaining of inability to ambulate and multiple arthralgias. Despite analgesics provided in the ED, the patient remained nonambulatory due to pain and bilateral knee xrays demonstrate knee effusions. The patient is admitted to [facility] for intractable pain with immobility. Bilateral knee effusions with intractable pain and inability to ambulate. Improving pain. - consulted orthopedic surgery - appreciate assistance - Continue [place] 7.5/325 mg p.o. q4h PRN pain - consult physical therapy, recommends walker vs wheelchair - given Decadron 8 mg IV x1 in ED - continue daily physical therapy - will give IV Toradol 15mg q6h x5 days - ESR 90 and CRP 17 - case management to assist with discharge planning referred to SNF and [facility] Leukocytosis: suspect stress response, no signs of infection. WBC 14.5 with neutrophilia; patient is afebrile - repeat CBC, however patient did receive steroids and WBC may increase Hypokalemia: K+ 3.1 on admission - replaced potassium - recheck BMP and monitor levels and replace as needed Atrial fibrillation, CHF: chronic, stable - continue Eliquis, metoprolol, lasix, potassium - monitor I and Os - continuous cardiac telemetry to monitor for cardiac arrhythmia Tobacco abuse - counselled regarding cessation DVT prophylaxis- on Eliquis Discharge Planning Discharge patient to home when DME arranged versus [facility] versus SNF Condition on discharge: Improved Regular Diet as tolerated Ad Marce activity Rx written: Potassium Follow-up with primary care physician cardiology and orthopedic surgery Pt Condition on Discharge: Stable Discharge Disposition: Discharge to SNF Discharge Time: > 30 minutes Discharge Instructions DIET: Follow Instructions for: Heart Healthy Diet Activities you can perform: Regular-No Restrictions Activities to Avoid: Driving Follow up Referrals: Appointment for Follow Up - 1 Week with Lencho Hopkins MD Orthopedics - 1 Week with Andrei Gomez MD PCP Follow-up - 1 Week with [facility] New Medications: Wheelchair (Wheelchair) 1 Mis Mis EA .XX DIRECTED, #1 0 Refills Changed Medications: Potassium Chloride ER (Potassium Chloride ER) 10 Meq Cap 20 MEQ PO DAILY for Electrolyte Replacement, #60 CAP 0 Refills (Changed from: 10 MEQ; 30) Continued Medications: Amlodipine (Amlodipine) 5 Mg Tab 5 MG PO DAILY for Blood Pressure Management, #30 TAB 0 Refills Apixaban (Eliquis) 5 Mg Tab 5 MG PO BID for A fib, #60 TAB Folic Acid (Folic Acid) 1 Mg Tablet 1 MG PO DAILY Furosemide (Lasix) 20 Mg Tab 20 MG PO DAILY, #30 TAB 0 Refills Methotrexate (Methotrexate) 2.5 Mg Tab 20 MG PO Q7D, TAB 0 Refills Saturdays Metoprolol Tartrate (Lopressor) 50 Mg Tab 75 MG PO Q12HR for A fib, #90 TAB Lisa Kevin MD Aug 27, 2017 16:59
[2017-08-28] VITALS (10 sets, daily range): BP systolic 126–133; BP diastolic 76–83; PULSE 57–80; RESP 16–18; TEMP 97.2–98; O2SAT 94–98
[2017-08-28] MEDS: ACETAMINOPHEN/HYDROcodone 325 MG/7.5 MG TAB PO PRN ×4 (05:58→22:53)
[2017-08-28] MEDS: KETOROLAC TROMETHAMINE 30 MG/ML (IVP) VIAL IV PUSH SCH (05:59)
[2017-08-28] MEDS: FOLIC ACID 1 MG TAB PO SCH (09:00)
[2017-08-28] MEDS: METOPROLOL TARTRATE 25 MG TAB PO SCH ×2 (09:00→22:55)
--- NOTE | 2017-08-28 10:59 | HHI.PR ---
Subjective Remarks At the margin of the bed. Pain in his knees is better controlled. Swelling in knees improved. No erythema. No n/v/d/c. Denies fever or chills. Objective Vitals Vital Signs Date Time Temp Pulse Resp B/P (MAP) Pulse Ox O2 Delivery O2 Flow Rate FiO2 08/28/17 08:00 97.5 58 16 126/82 (97) 97 08/28/17 04:07 57 08/28/17 03:43 97.6 58 16 133/83 (100) 98 08/28/17 00:03 65 08/27/17 23:58 98.1 59 20 133/86 (102) 98 08/27/17 20:41 97.4 62 16 131/79 (96) 97 08/27/17 20:08 68 08/27/17 16:46 98.1 52 16 120/77 (91) 96 08/27/17 15:52 70 08/27/17 12:20 98.0 62 16 122/68 (86) 97 08/27/17 12:04 62 I/O 08/27/17 08/27/17 08/27/17 08/28/17 08/28/17 08/28/17 07:00 15:00 23:00 07:00 15:00 23:00 Output Total 600 ml Balance -600 ml Output Urine Total 600 ml # Voids 1 # Bowel Movements 1 Result Diagram: 08/24/17 0625 08/24/17 0625 Imaging Last Impressions Knee X-Ray 08/22/17 0000 Signed Impressions: Service Date/Time: Tuesday, August 22, 2017 21:07 - CONCLUSION: Findings characteristic of a moderately large knee effusion. No fracture seen. Degenerative changes with chondrocalcinosis menisci. Ambrocio Crocker MD Objective Remarks GENERAL: Well-nourished, well-developed middle aged male patient in [facility]. SKIN: Warm and dry. No rash. CARDIOVASCULAR: Irregular rate and rhythm. S1, S2 noted. No murmur appreciated. RESPIRATORY: No accessory muscle use. Clear to auscultation. Breath sounds equal bilaterally. GASTROINTESTINAL: Abdomen soft, non-tender, nondistended. Normoactive bowel sounds x4. MUSCULOSKELETAL: No obvious deformities. Bilateral knees with effusions, tender to palpation, however no erythema/warmth. NEUROLOGICAL: Awake and alert. No obvious cranial nerve deficits. Motor grossly within normal limits. 5/5 muscle strength in bilateral upper and lower extremities. Normal speech. PSYCHIATRIC: Appropriate mood and affect; insight and judgment normal. Procedures none A/P Problem List: (1) Knee effusion, left ICD Code: M25.462 - Effusion, left knee (2) Knee effusion, right ICD Code: M25.461 - Effusion, right knee (3) Inability to ambulate due to multiple joints ICD Code: R26.2 - Difficulty in walking, not elsewhere classified Assessment and Plan 62-year-old male with a history of osteoarthritis, rheumatoid arthritis, gout, atrial fibrillation on Eliquis, asthma, hypertension, spinal stenosis, and tobacco abuse who presented to the ED on 08/22/17 complaining of inability to ambulate and multiple arthralgias. Despite analgesics provided in the ED, the patient remained nonambulatory due to pain and bilateral knee xrays demonstrate knee effusions. The patient is admitted to [facility] for intractable pain with immobility. Bilateral knee effusions with intractable pain and inability to ambulate. Improving pain. - consulted orthopedic surgery - appreciate assistance - Continue [place] 7.5/325 mg p.o. q4h PRN pain - consult physical therapy, recommends walker vs wheelchair - given Decadron 8 mg IV x1 in ED - continue daily physical therapy - will give IV Toradol 15mg q6h x5 days - ESR 90 and CRP 17 - case management to assist with discharge planning referred to SNF and [facility] Leukocytosis: suspect stress response, no signs of infection. WBC 14.5 with neutrophilia; patient is afebrile - repeat CBC, however patient did receive steroids and WBC may increase Hypokalemia: K+ 3.1 on admission - replaced potassium - recheck BMP and monitor levels and replace as needed Atrial fibrillation, CHF: chronic, stable - continue Eliquis, metoprolol, lasix, potassium - monitor I and Os - continuous cardiac telemetry to monitor for cardiac arrhythmia Tobacco abuse - counselled regarding cessation DVT prophylaxis- on Eliquis Discussed with the patient, nurse. Discharge Planning Discharge patient to home when DME arranged versus [facility] versus SNF Condition on discharge: Improved Regular Diet as tolerated Ad Marce activity Rx written: Potassium Follow-up with primary care physician cardiology and orthopedic surgery Lisa Kevin MD Aug 28, 2017 10:59
[2017-08-28] MEDS: SODIUM CHLORIDE 0.9% FLUSH 10 ML FLUSH IV FLUSH SCH ×2 (11:25→21:00)
[2017-08-28] MEDS: POTASSIUM CHLORIDE 10 MEQ CAP PO SCH (11:25)
[2017-08-28] MEDS: amLODIPine BESYLATE 5 MG TAB PO SCH (11:26)
[2017-08-28] MEDS: FUROSEMIDE 20 MG TAB PO SCH (11:26)
[2017-08-28] MEDS: APIXABAN 5 MG TABLET PO SCH ×2 (11:26→22:53)
[2017-08-29 00:05] VITALS: PULSE 66
[2017-08-29 00:36] VITALS: BP 127/79; PULSE 60; RESP 16; TEMP 98.4; O2SAT 98
[2017-08-29 03:27] VITALS: BP 129/85; PULSE 56; RESP 16; TEMP 97.7; O2SAT 99
[2017-08-29 04:05] VITALS: PULSE 60
[2017-08-29 08:28] VITALS: BP 136/95; PULSE 56; RESP 18; TEMP 97.6; O2SAT 99
[2017-08-29] MEDS: amLODIPine BESYLATE 5 MG TAB PO SCH (10:10)
[2017-08-29] MEDS: FUROSEMIDE 20 MG TAB PO SCH (10:11)
[2017-08-29] MEDS: POTASSIUM CHLORIDE 10 MEQ CAP PO SCH (10:11)
[2017-08-29] MEDS: SODIUM CHLORIDE 0.9% FLUSH 10 ML FLUSH IV FLUSH SCH (10:12)
[2017-08-29] MEDS: APIXABAN 5 MG TABLET PO SCH (10:12)
[2017-08-29] MEDS: METOPROLOL TARTRATE 25 MG TAB PO SCH (10:26)
[2017-08-29] MEDS: ACETAMINOPHEN/HYDROcodone 325 MG/7.5 MG TAB PO PRN (10:27)
[2017-08-29] MEDS: FOLIC ACID 1 MG TAB PO SCH (10:27)
[2017-08-29 12:54] VITALS: BP 126/92; PULSE 63; RESP 18; TEMP 97.7; O2SAT 99
--- NOTE | 2017-08-29 13:15 | HHI.PR ---
Subjective Remarks In bed appears in nad. Denies chest pain or sob. Pain in his knee improved. No swelling of his knees. Not able to walk much Objective Vitals Vital Signs Date Time Temp Pulse Resp B/P (MAP) Pulse Ox O2 Delivery O2 Flow Rate FiO2 08/29/17 12:54 97.7 63 18 126/92 (103) 99 08/29/17 08:28 97.6 56 18 136/95 (109) 99 08/29/17 04:05 60 08/29/17 03:27 97.7 56 16 129/85 (100) 99 08/29/17 00:36 98.4 60 16 127/79 (95) 98 08/29/17 00:05 66 08/28/17 20:04 72 08/28/17 16:04 67 08/28/17 16:00 98.0 80 18 130/81 (97) 94 I/O 08/28/17 08/28/17 08/28/17 08/29/17 08/29/17 08/29/17 07:00 15:00 23:00 07:00 15:00 23:00 Output Total 600 ml 1100 ml Balance -600 ml -1100 ml Output Urine Total 600 ml 1100 ml # Voids 3 # Bowel Movements 1 Imaging Last Impressions Knee X-Ray 08/22/17 0000 Signed Impressions: Service Date/Time: Tuesday, August 22, 2017 21:07 - CONCLUSION: Findings characteristic of a moderately large knee effusion. No fracture seen. Degenerative changes with chondrocalcinosis menisci. Ambrocio Crocker MD Objective Remarks GENERAL: Well-nourished, well-developed middle aged male patient in [facility]. SKIN: Warm and dry. No rash. CARDIOVASCULAR: Irregular rate and rhythm. S1, S2 noted. No murmur appreciated. RESPIRATORY: No accessory muscle use. Clear to auscultation. Breath sounds equal bilaterally. GASTROINTESTINAL: Abdomen soft, non-tender, nondistended. Normoactive bowel sounds x4. MUSCULOSKELETAL: No obvious deformities. Bilateral knees with effusions, tender to palpation, however no erythema/warmth. NEUROLOGICAL: Awake and alert. No obvious cranial nerve deficits. Motor grossly within normal limits. 5/5 muscle strength in bilateral upper and lower extremities. Normal speech. PSYCHIATRIC: Appropriate mood and affect; insight and judgment normal. Procedures none A/P Problem List: (1) Knee effusion, left ICD Code: M25.462 - Effusion, left knee (2) Knee effusion, right ICD Code: M25.461 - Effusion, right knee (3) Inability to ambulate due to multiple joints ICD Code: R26.2 - Difficulty in walking, not elsewhere classified Assessment and Plan 62-year-old male with a history of osteoarthritis, rheumatoid arthritis, gout, atrial fibrillation on Eliquis, asthma, hypertension, spinal stenosis, and tobacco abuse who presented to the ED on 08/22/17 complaining of inability to ambulate and multiple arthralgias. Despite analgesics provided in the ED, the patient remained nonambulatory due to pain and bilateral knee xrays demonstrate knee effusions. The patient is admitted to [facility] for intractable pain with immobility. Bilateral knee effusions with intractable pain and inability to ambulate. Improving pain. - consulted orthopedic surgery - appreciate assistance - Continue [place] 7.5/325 mg p.o. q4h PRN pain - consult physical therapy, recommends walker vs wheelchair - given Decadron 8 mg IV x1 in ED - continue daily physical therapy - will give IV Toradol 15mg q6h x5 days - ESR 90 and CRP 17 - case management to assist with discharge planning referred to SNF and [facility] Leukocytosis: suspect stress response, no signs of infection. WBC 14.5 with neutrophilia; patient is afebrile - repeat CBC, however patient did receive steroids and WBC may increase Hypokalemia: K+ 3.1 on admission - replaced potassium - recheck BMP and monitor levels and replace as needed Atrial fibrillation, CHF: chronic, stable - continue Eliquis, metoprolol, lasix, potassium - monitor I and Os - continuous cardiac telemetry to monitor for cardiac arrhythmia Tobacco abuse - counselled regarding cessation DVT prophylaxis- on Eliquis Discussed with the patient, nurse. Discharge Planning Discharge patient to home when DME arranged versus [facility] versus SNF Lisa Kevin MD Aug 29, 2017 13:15
[2017-08-29] MEDS ORDERED: POTASSIUM CHLORIDE 20 MEQ CONTROLLED RELEASE TAB PO ONE (14:45)
== END 2017-08-29 18:26 | disposition home or self-care (01) ==
LOC: NEPD 17:49 → NEDA 23:55 → NEPFCDU 08-23 14:11
PROVIDERS: ADMIT Hospitalist; ATTEND Hospitalist
DX: R26.2 Difficulty in walking, not elsewhere classified (principal); M25.461 Effusion, right knee; M25.462 Effusion, left knee; M25.571 Pain in right ankle and joints of right foot; M25.572 Pain in left ankle and joints of left foot; M79.671 Pain in right foot; M79.672 Pain in left foot; I48.91 Unspecified atrial fibrillation; I11.0 Hypertensive heart disease with heart failure; I50.9 Heart failure, unspecified; E78.00 Pure hypercholesterolemia, unspecified; J45.909 Unspecified asthma, uncomplicated; D72.829 Elevated white blood cell count, unspecified; E87.6 Hypokalemia; M06.9 Rheumatoid arthritis, unspecified; M11.20 Other chondrocalcinosis, unspecified site; G89.29 Other chronic pain; M19.90 Unspecified osteoarthritis, unspecified site; F17.200 Nicotine dependence, unspecified, uncomplicated; Z79.891 Long term (current) use of opiate analgesic; Z59.0 Homelessness; Z79.899 Other long term (current) drug therapy; Z79.01 Long term (current) use of anticoagulants
CPT/HCPCS: 73564; 80048; 80053; 83735; 83880; 84550; 85025; 85652; 86140; 96374; 96375; 96376; 97110; 97116; 97162; 97530; 99285; G0378; G8987; G8988; J1100; J1885; J2270; J8610